=== PATIENT | female | born 1940 | race Caucasian/White ===

== ENCOUNTER → 2016-12-26 | Day surgery (SDC) | payer OTHER ==
[2016-12-20 08:52] VITALS: Ht 162.6 cm; Wt 73.6 kg
[~2016-12-26] VITALS: Ht 162.6 cm; Wt 73.6 kg
[~2016-12-26] MED LIST: 500ML BSS 0.3ML EPI 1:1000PF IRRIG ONE; ACETAMINOPHEN 325 MG TAB PO PRN; AMVISC PLUS 0.8ML SYRINGE INT OCU ONE; ASPI81TA28 PO; ATROPINE SULFATE 0.1 MG/ML 5ML SYR IV PRN; AcetaZOLAMIDE 250 MG TAB PO SCH; BETAXOLOL HCL 0.25% OP SUSP PER DROP CHARGE OPL SCH; BRIMONIDINE TART 0.2% OP SOLN PER DROP CHARGE ONE; BSS FLUSH ONE; BTP80 PO; CHOL1TAB42 PO; CYAN100020 PO; CZR50 PO; ENDOCOAT 0.85ML SYRINGE INT OCU ONE; EZET10TA47 PO; EpHEDrine SULFATE INJ 50 MG/ML AMP IV PRN; EpINEphrine INJ 1MG/ML AMP 1 MG/ML AMP ONE; FENTANYL CITRATE INJ 50 MCG/1 ML 2 ML VIAL ONE; FLUV1CAP PO; LACT1CAP6 PO; LACTATED RINGER'S 1000ML 500 ML IV SCH; LEVO50TA PO; LIDOCAINE 4% OP SOLN DROP CHARGE ONE; LIDOCAINE 4% OP SOLN DROP CHARGE OPL SCH; LIDOCAINE HCL 1% MPF 2 ML VIAL ONE; LOSA50TA6 PO; MAGN400T6 PO; MIDAZOLAM HCL 1 MG/ML 2ML VIAL ONE; MIX: 4ML BSS 1ML EPI 1:1000 PF INSTIL ONE; MOXIFLOXACIN OPH SOLN PER DROP CHARGE ONE; OCUCOAT 1 ML SOLN IO ONE; PANT40TA PO; POVIDONE-IODINE OP SOLN 30 ML BTL ONE; PROPARACAINE 0.5% OP SOLN PER DROP CHARGE OPL SCH; RANI150T3 PO; RIVA1TAB4 PO; SERT25TA PO; SOTA80TA PO; TOBRAMYCIN/DEXAMETHASONE OPH OINT PER APPLN CHARGE ONE; TRAM-10 PO; TRYPAN BLUE 0.06% FOR SURGI CENTER ONLY OP ONE
--- NOTE | 2016-12-26 07:33 | History & Physical Bridge - [place] ---
H&P Re-Evaluation Bridge Note: I have examined the patient, reviewed the History & Physical and in the interval since the performance of the History & Physical I have noted the following changes of clinical significance: No changes noted
[2016-12-26] MEDS: PHENYLEPHRINE HCL 2.5% OP SOLN PER DROP CHARGE OPL SCH ×2 (08:30→08:35)
[2016-12-26] MEDS: TROPICAMIDE 1% OP SOLN PER DROP CHARGE OPL SCH ×2 (08:31→08:36)
[2016-12-26] MEDS: CYCLOPENTOLATE HCL 1% OP SOLN PER DROP CHARGE OPL SCH ×2 (08:32→08:37)
[2016-12-26] MEDS: MOXIFLOXACIN OPH SOLN PER DROP CHARGE OPL SCH ×2 (08:33→08:43)
--- NOTE | 2016-12-26 09:31 | Discharge Instructions-SurgCtr ---
Discharge Instructions Date of Service Dec 26, 2016. Visit Reason for Visit: Cataract Left Eye Discharge Discharge Diagnosis / Problem: lens implant left eye Discharge Goals Goal(s): Improve function Activity Recommendations Activity Limitations: resume your previous activity Lifting Limitations: no more than 10 pounds Exercise/Sports Limitations: gradually increase as tolerated May Resume Sexual Activity: when tolerated Shower/Bathe: tomorrow Driving or Machine Use: resume 1 day after discharge Anesthesia . Post Anesthesia Instructions: If you have had General Anesthesia or IV Sedation: * Do not drive today. * Resume driving when surgeon permits. * Do not make important decisions or sign legal documents today. * Call surgeon for: 1. Temperature elevations greater than 101 degrees F. 2. Uncontrollable pain. 3. Excessive bleeding. 4. Persistent nausea and vomiting. 5. Medication intolerance (nausea, vomiting or rash). * For nausea and vomiting use only clear liquids such as: tea, soda, bouillon until nausea subsides, then gradually increase diet as tolerated. * If you have any concerns or questions, call your surgeon's office. If physician is unavailable and it is an emergency, call 911 or go to the nearest emergency room. . Instructions / Follow-Up Instructions / Follow-Up ACTIVITY RECOMMENDATIONS: * Light activities. * Mild irritation and blurred vision are common for the first few days. * You may walk outside, read, watch television. * Redness around the white part of the eye is common. MEDICATIONS: Resume previous medications unless instructed otherwise by your surgeon. * Take white Diamox (Acetazolamide) tablet at 1 pm today. Start all eye drops at 1 pm today: * Eye drops (today and tomorrow): Prednisone - one drop in operative eye every 3 hours while awake Tobramycin - one drop in operative eye every 3 hours while awake SPECIAL CARE INSTRUCTIONS: * Tape plastic shield over eye to sleep at night. Call your doctor at with any concerns or problems. FOLLOW UP VISIT: Follow-up with Dr Klein at [facility] as scheduled. Diet Recommendations Home Diet: no limitations Procedures Procedures Performed: cataract extraction with lens implant Pending Studies Studies pending at discharge: no Medical Emergencies . Who to Call and When: Medical Emergencies: If at any time you feel your situation is an emergency, please call 911 immediately. . Non-Emergent Contact Non-Emergency issues call your: Almond Huller Call Non-Emergent contact if: your pain is not controlled [phone] . . "Provider Documentation" section prepared by Bill Klein.
--- NOTE | 2016-12-26 09:38 | [facility] Operative Report ---
Operative Report Date of Service Dec 26, 2016. Operative Report 1. PREOPERATIVE DIAGNOSIS: Senile Posterior Subcapsular Cataract, left eye. 2. POSTOPERATIVE DIAGNOSIS: Senile Posterior Subcapsular Cataract, left eye. 3. PROCEDURE: Phacoemulsification of left cataract with posterior chamber lens implant, type Bausch [employer] Lomb, model MX60, power +18.5 diopters. ANESTHESIA: Local standby. SURGEON: Dr. Klein. COMPLICATIONS: None. OPERATING TIME: 10 minutes. 4. OPERATION AND FINDINGS: DESCRIPTION OF PROCEDURE: The left pupil was dilated. The anesthetic was administered using a topical technique. The left eye was prepped and draped. A speculum was placed. A paracentesis was placed. The chamber was filled with Amvisc Plus and Endocoat. Epinephrine solution was used. A clear corneal incision was formed. The capsule was stained with Vision Blue. A capsulorrhexis was performed. The nucleus was hydrodissected. A dense lens was removed with phacoemulsification. Time was 7.87 seconds. The aspiration unit was used to remove the cortex. The capsule was filled with Amvisc Plus. The lens implant was folded and placed into the capsule. The incision was hydrated. The Amvisc was aspirated. The wound was secure. The chamber was deep. The pupil was round. Brimonidine, TobraDex ointment and Vigamox solution were placed. The speculum was removed. The patient was returned to the Recovery Room in stable condition. I attest to the content of the Intraoperative Record and any orders documented therein. Any exceptions are noted below. The scribe's documentation has been prepared in my presence, under my direction and personally reviewed by me in its entirety. I confirm that the note above accurately reflects all work, treatment, procedures, and medical decision making performed by me. I personally scribed for Bill Klein M.D. ([facility]) on 12/26/16 at 09:37. Electronically submitted by Fina CLOUD).
[2016-12-26 09:40] VITALS: TEMP 37.1
--- NOTE | 2016-12-26 09:49 | Anesthesia Progress Nt - [facility] ---
Anesthesia Post Op Note Date & Time Dec 26, 2016 at 09:49 Vital Signs Pain Intensity: 0 Vital Signs Past 12 Hours Date Time Temp Pulse Resp B/P Pulse Ox O2 Delivery O2 Flow Rate FiO2 12/26/16 09:40 37.1 52 16 127/55 98 Room Air 12/26/16 08:26 36.4 57 16 155/76 98 Room Air Notes Mental Status: alert / awake / arousable, participated in evaluation Pt Amnestic to Procedure: Yes Nausea / Vomiting: adequately controlled Pain: adequately controlled Airway Patency, RR, SpO2: stable & adequate BP & HR: stable & adequate Hydration State: stable & adequate Anesthetic Complications: no major complications apparent
[2016-12-26 09:55] VITALS: BP 143/62; PULSE 50; O2SAT 98
== END | disposition home or self-care (01) ==
LOC: X.SURG 08:06
PROVIDERS: ATTEND Specialist
DX: H25.042 Posterior subcapsular polar age-related cataract, left eye (principal); I10 Essential (primary) hypertension; I51.9 Heart disease, unspecified; Z88.1 Allergy status to other antibiotic agents

== ENCOUNTER → 2017-01-23 | Outpatient (CLI) | payer OTHER ==
[~2017-01-23] MED LIST changes: -500ML BSS 0.3ML EPI 1:1000PF IRRIG ONE; -ACETAMINOPHEN 325 MG TAB PO PRN; -AMVISC PLUS 0.8ML SYRINGE INT OCU ONE; -ATROPINE SULFATE 0.1 MG/ML 5ML SYR IV PRN; -AcetaZOLAMIDE 250 MG TAB PO SCH; -BETAXOLOL HCL 0.25% OP SUSP PER DROP CHARGE OPL SCH; -BRIMONIDINE TART 0.2% OP SOLN PER DROP CHARGE ONE; -BSS FLUSH ONE; -ENDOCOAT 0.85ML SYRINGE INT OCU ONE; -EpHEDrine SULFATE INJ 50 MG/ML AMP IV PRN; -EpINEphrine INJ 1MG/ML AMP 1 MG/ML AMP ONE; -FENTANYL CITRATE INJ 50 MCG/1 ML 2 ML VIAL ONE; -LACTATED RINGER'S 1000ML 500 ML IV SCH; -LIDOCAINE 4% OP SOLN DROP CHARGE ONE; -LIDOCAINE 4% OP SOLN DROP CHARGE OPL SCH; -LIDOCAINE HCL 1% MPF 2 ML VIAL ONE; -MIDAZOLAM HCL 1 MG/ML 2ML VIAL ONE; -MIX: 4ML BSS 1ML EPI 1:1000 PF INSTIL ONE; -MOXIFLOXACIN OPH SOLN PER DROP CHARGE ONE; -OCUCOAT 1 ML SOLN IO ONE; -POVIDONE-IODINE OP SOLN 30 ML BTL ONE; -PROPARACAINE 0.5% OP SOLN PER DROP CHARGE OPL SCH; -TOBRAMYCIN/DEXAMETHASONE OPH OINT PER APPLN CHARGE ONE; -TRYPAN BLUE 0.06% FOR SURGI CENTER ONLY OP ONE
[2017-01-23 14:06] LABS: ESTIMATED AVERAGE GLUCOSE 128 mg/dl; HA1C FLAG Normal (Normal)
[2017-01-23 18:18] LABS: THYROID STIMULATING HORMONE 1.68 uIu/ml (0.300-4.500)
[2017-01-23 20:13] LABS: ALB/GLOB RATIO 1.1 (0.9-2); BLOOD UREA NITROGEN 14 mg/dl (7-18); BUN/CREATININE RATIO 16.5 (10-20); CALCIUM 8.6 mg/dl (8.5-10.1); CARBON DIOXIDE 26 mmol/L (21-32); CHLORIDE 108 mmol/L (98-107); CREATININE 0.85 mg/dl (0.60-1.20); GLUCOSE 98 mg/dl (70-99); HDL CHOLESTEROL 57 mg/dl; POTASSIUM 4.3 mmol/L (3.5-5.1); SODIUM 143 mmol/L (136-145); TRIGLYCERIDES 249 mg/dl (0-150); VERY LOW DENSITY LIPOPROT CALC 50 mg/dl
[2017-01-23 20:22] LABS: ALKALINE PHOSPHATASE 90 U/L (45-117); ALT/SGPT 19 U/L (12-78); AST/SGOT 18 U/L (15-37); CHOLESTEROL 287 mg/dl (0-200); LDL CHOLESTEROL CALCULATED 180 mg/dl
== END | disposition home or self-care (01) ==
LOC: C.LABPBG 10:50
PROVIDERS: ATTEND Internal Medicine
DX: E78.5 Hyperlipidemia, unspecified (principal); E11.9 Type 2 diabetes mellitus without complications; E55.9 Vitamin D deficiency, unspecified; E03.9 Hypothyroidism, unspecified; I10 Essential (primary) hypertension

== ENCOUNTER → 2017-03-13 | Day surgery (SDC) | payer OTHER ==
[2017-02-28 10:36] VITALS: Ht 162.6 cm; Wt 75.5 kg
[~2017-03-13] VITALS: Ht 162.6 cm; Wt 75.5 kg
[~2017-03-13] MED LIST changes: +500ML BSS 0.3ML EPI 1:1000PF IRRIG ONE; +ACETAMINOPHEN 325 MG TAB PO PRN; +AMVISC PLUS 0.8ML SYRINGE INT OCU ONE; +ATROPINE SULFATE 0.1 MG/ML 5ML SYR IV PRN; +AcetaZOLAMIDE 250 MG TAB PO SCH; +BETAXOLOL HCL 0.25% OP SUSP PER DROP CHARGE OPR SCH; +BRIMONIDINE TART 0.2% OP SOLN PER DROP CHARGE ONE; -BTP80 PO; -CZR50 PO; +ENDOCOAT 0.85ML SYRINGE INT OCU ONE; -EZET10TA47 PO; +EpINEphrine INJ 1MG/ML AMP 1 MG/ML AMP ONE; +LACTATED RINGER'S 1000ML 500 ML IV SCH; +LIDOCAINE 4% OP SOLN DROP CHARGE ONE; +LIDOCAINE 4% OP SOLN DROP CHARGE OPR SCH; +LIDOCAINE HCL 1% MPF 2 ML VIAL ONE; +MIDAZOLAM HCL 1 MG/ML 2ML VIAL ONE; +MIX: 4ML BSS 1ML EPI 1:1000 PF INSTIL ONE; +MOXIFLOXACIN OPH SOLN PER DROP CHARGE ONE; +OCUCOAT 1 ML SOLN IO ONE; +POVIDONE-IODINE OP SOLN 30 ML BTL ONE; +PROPARACAINE 0.5% OP SOLN PER DROP CHARGE OPR SCH; +TOBRAMYCIN/DEXAMETHASONE OPH OINT PER APPLN CHARGE ONE
[2017-03-13] MEDS: PHENYLEPHRINE HCL 2.5% OP SOLN PER DROP CHARGE OPR SCH ×2 (07:40→07:45)
[2017-03-13] MEDS: TROPICAMIDE 1% OP SOLN PER DROP CHARGE OPR SCH ×2 (07:41→07:45)
[2017-03-13] MEDS: CYCLOPENTOLATE HCL 1% OP SOLN PER DROP CHARGE OPR SCH ×2 (07:42→07:47)
[2017-03-13] MEDS: MOXIFLOXACIN OPH SOLN PER DROP CHARGE OPR SCH ×2 (07:43→07:49)
--- NOTE | 2017-03-13 08:54 | Discharge Instructions-SurgCtr ---
Discharge Instructions Date of Service Mar 13, 2017. Visit Reason for Visit: Cataract Right Eye Discharge Discharge Diagnosis / Problem: lens implant right eye Discharge Goals Goal(s): Improve function Activity Recommendations Activity Limitations: resume your previous activity Lifting Limitations: no more than 10 pounds Exercise/Sports Limitations: gradually increase as tolerated May Resume Sexual Activity: when tolerated Shower/Bathe: tomorrow Driving or Machine Use: resume 1 day after discharge Anesthesia . Post Anesthesia Instructions: If you have had General Anesthesia or IV Sedation: * Do not drive today. * Resume driving when surgeon permits. * Do not make important decisions or sign legal documents today. * Call surgeon for: 1. Temperature elevations greater than 101 degrees F. 2. Uncontrollable pain. 3. Excessive bleeding. 4. Persistent nausea and vomiting. 5. Medication intolerance (nausea, vomiting or rash). * For nausea and vomiting use only clear liquids such as: tea, soda, bouillon until nausea subsides, then gradually increase diet as tolerated. * If you have any concerns or questions, call your surgeon's office. If physician is unavailable and it is an emergency, call 911 or go to the nearest emergency room. . Instructions / Follow-Up Instructions / Follow-Up ACTIVITY RECOMMENDATIONS: * Light activities. * Mild irritation and blurred vision are common for the first few days. * You may walk outside, read, watch television. * Redness around the white part of the eye is common. MEDICATIONS: Resume previous medications unless instructed otherwise by your surgeon. * Take white Diamox (Acetazolamide) tablet at 1 pm today. Start all eye drops at 1 pm today: * Eye drops (today and tomorrow): Prednisone - one drop in operative eye every 3 hours while awake Tobramycin - one drop in operative eye every 3 hours while awake SPECIAL CARE INSTRUCTIONS: * Tape plastic shield over eye to sleep at night. Call your doctor at with any concerns or problems. FOLLOW UP VISIT: Follow-up with Dr Klein at [facility] as scheduled. Diet Recommendations Home Diet: no limitations Procedures Procedures Performed: cataract extraction with lens implant Pending Studies Studies pending at discharge: no Medical Emergencies . Who to Call and When: Medical Emergencies: If at any time you feel your situation is an emergency, please call 911 immediately. . Non-Emergent Contact Non-Emergency issues call your: Insurance Marketing Specialist Call Non-Emergent contact if: your pain is not controlled [phone] . . "Provider Documentation" section prepared by Bill Klein. .
--- NOTE | 2017-03-13 08:55 | [facility] Operative Report ---
Operative Report Date of Service Mar 13, 2017. Operative Report 1. PREOPERATIVE DIAGNOSIS: Senile nuclear cataract, right eye. 2. POSTOPERATIVE DIAGNOSIS: Senile nuclear cataract, right eye. 3. PROCEDURE: Phacoemulsification of right cataract with posterior chamber lens implant, type Bausch [employer] Lomb, model MX60, power +18 diopters. ANESTHESIA: Local standby. SURGEON: Dr. Klein. COMPLICATIONS: None. OPERATING TIME: 10 minutes. 4. OPERATION AND FINDINGS: DESCRIPTION OF PROCEDURE: The right pupil was dilated. The anesthetic was administered using a topical technique. The right eye was prepped and draped. A speculum was placed. A clear corneal incision was formed. The chamber was filled with Amvisc Plus and Endocoat. Epinephrine solution was used. A paracentesis was placed. A capsulorrhexis was performed. The nucleus was hydrodissected. The lens was removed with phacoemulsification. Time was 5.13 seconds. The aspiration unit was used to remove the cortex. The capsule was filled with Amvisc Plus. The lens implant was folded and placed into the capsule. The incision was hydrated. The Amvisc was aspirated. The wound was secure. The chamber was deep. The pupil was round. Brimonidine, TobraDex ointment and Vigamox solution were placed. The speculum was removed. The patient was returned to the Recovery Room in stable condition. I attest to the content of the Intraoperative Record and any orders documented therein. Any exceptions are noted below. The scribe's documentation has been prepared in my presence, under my direction and personally reviewed by me in its entirety. I confirm that the note above accurately reflects all work, treatment, procedures, and medical decision making performed by me. I personally scribed for Bill Klein M.D. ([facility]) on 03/13/17 at 08:55. Electronically submitted by Fina Dixon ([facility]).
[2017-03-13 09:00] VITALS: TEMP 36.7
[2017-03-13 09:19] VITALS: BP 129/78; PULSE 56; O2SAT 96
--- NOTE | 2017-03-13 09:28 | Anesthesia Progress Nt - [facility] ---
Anesthesia Post Op Note Date & Time Mar 13, 2017 at 09:28 Vital Signs Pain Intensity: 3 Vital Signs Past 12 Hours Date Time Temp Pulse Resp B/P (MAP) Pulse Ox O2 Delivery O2 Flow Rate FiO2 03/13/17 09:19 56 16 129/78 (95) 96 Room Air 03/13/17 09:00 36.7 51 16 137/60 (85) 97 Room Air 03/13/17 07:32 36.6 54 18 171/89 (116) 100 Room Air Notes Mental Status: alert / awake / arousable, participated in evaluation Pt Amnestic to Procedure: Yes Nausea / Vomiting: adequately controlled Pain: adequately controlled Airway Patency, RR, SpO2: stable & adequate BP & HR: stable & adequate Hydration State: stable & adequate Anesthetic Complications: no major complications apparent
== END | disposition home or self-care (01) ==
LOC: X.SURG 07:14
PROVIDERS: ATTEND Specialist
DX: H25.11 Age-related nuclear cataract, right eye (principal); I10 Essential (primary) hypertension; Z87.891 Personal history of nicotine dependence; Z98.42 Cataract extraction status, left eye; Z68.28 Body mass index [BMI] 28.0-28.9, adult; Z88.1 Allergy status to other antibiotic agents

== ENCOUNTER → 2017-05-02 | Outpatient (CLI) | payer OTHER ==
[~2017-05-02] MED LIST changes: -500ML BSS 0.3ML EPI 1:1000PF IRRIG ONE; -ACETAMINOPHEN 325 MG TAB PO PRN; -AMVISC PLUS 0.8ML SYRINGE INT OCU ONE; -ATROPINE SULFATE 0.1 MG/ML 5ML SYR IV PRN; -AcetaZOLAMIDE 250 MG TAB PO SCH; -BETAXOLOL HCL 0.25% OP SUSP PER DROP CHARGE OPR SCH; -BRIMONIDINE TART 0.2% OP SOLN PER DROP CHARGE ONE; -ENDOCOAT 0.85ML SYRINGE INT OCU ONE; -EpINEphrine INJ 1MG/ML AMP 1 MG/ML AMP ONE; -LACTATED RINGER'S 1000ML 500 ML IV SCH; -LIDOCAINE 4% OP SOLN DROP CHARGE ONE; -LIDOCAINE 4% OP SOLN DROP CHARGE OPR SCH; -LIDOCAINE HCL 1% MPF 2 ML VIAL ONE; -MIDAZOLAM HCL 1 MG/ML 2ML VIAL ONE; -MIX: 4ML BSS 1ML EPI 1:1000 PF INSTIL ONE; -MOXIFLOXACIN OPH SOLN PER DROP CHARGE ONE; -OCUCOAT 1 ML SOLN IO ONE; +OPTIRAY 320 IV PRN; -POVIDONE-IODINE OP SOLN 30 ML BTL ONE; -PROPARACAINE 0.5% OP SOLN PER DROP CHARGE OPR SCH; -TOBRAMYCIN/DEXAMETHASONE OPH OINT PER APPLN CHARGE ONE
--- NOTE | 2017-05-02 13:13 | DIAGNOSTIC IMAGING REPORT ---
HEAD COMBO CLINICAL HISTORY: 77 years-old Female presenting with headaches for one month, history of falls, myalgia. TECHNIQUE: Multidetector CT imaging of the head was performed before and after the administration of intravenous contrast. IV contrast: 94 mL of Optiray 320. A dose lowering technique was used consistent with the principles of ALARA (as low as reasonably achievable). COMPARISON: 02/17/2013. CT DOSE (mGy.cm): The estimated cumulative dose is 1277.12 mGycm. FINDINGS: Inventory Control Associate topogram: Unremarkable. Ventricles and sulci normal in size. Brain parenchyma normal in appearance with preserved reza-white differentiation. No mass effect or midline shift. No hemorrhage or acute territorial infarct. No extra-axial fluid collection. No abnormal enhancement. Vessels patent. Paranasal sinuses and mastoid air cells clear. Calvarium intact. IMPRESSION: 1. No acute intracranial pathology. No abnormal enhancement. Electronically signed by: Clemente Flood M.D. 05/02/2017 1:12 PM Dictated Date/Time: 05/02/2017 1:08 PM
== END | disposition home or self-care (01) ==
LOC: C.CTS 12:10
PROVIDERS: ATTEND Internal Medicine
DX: R51 Headache (principal); M79.1 Myalgia; Z91.81 History of falling

== ENCOUNTER → 2017-06-25 | Outpatient (CLI) | payer OTHER ==
[~2017-06-25] MED LIST changes: -OPTIRAY 320 IV PRN
--- NOTE | 2017-06-25 09:34 | DIAGNOSTIC IMAGING REPORT ---
BRAIN WITHOUT CONTRAST CLINICAL HISTORY: 77 years-old Female presenting with poor balance, new onset headaches. TECHNIQUE: Multisequence, multiplanar MR imaging of the brain was performed without the use of intravenous contrast. IV contrast: None. COMPARISON: CT head from 05/02/2017. FINDINGS: Ventricles and sulci normal in size. Brain parenchyma normal in appearance with preserved reza-white differentiation. No mass effect or midline shift. No restricted diffusion to suggest acute ischemia. No hemorrhage. No extra-axial fluid collection. T2 skull base flow voids preserved. Bone marrow signal intensity within the calvarium within normal limits. IMPRESSION: 1. No acute intracranial abnormality. Electronically signed by: Clemente Flood M.D. 06/25/2017 9:32 AM Dictated Date/Time: 06/25/2017 9:29 AM
[2017-06-27 10:28] LABS: ALBUMIN 3.8 G/DL (3.8-4.8); GAMMA GLOBULIN 0.6 G/DL (0.8-1.7); TOTAL PROTEIN 6.2 G/DL (6.2-8.3)
== END | disposition home or self-care (01) ==
LOC: C.MRI 08:39
PROVIDERS: ATTEND Psychiatry & Neurology Neurology
DX: R26.89 Other abnormalities of gait and mobility (principal); R29.818 Other symptoms and signs involving the nervous system; R51 Headache

== ENCOUNTER 2018-01-06 08:17 | Emergency (ER) | payer OTHER ==
[~2018-01-06] VITALS: Ht 160 cm; Wt 87.2 kg
[2018-01-06 08:28] VITALS: TEMP 37.1; O2SAT 97; Ht 160 cm; Wt 87.2 kg
[2018-01-06] MEDS ORDERED: ONDANSETRON INJ 2 MG/ML 2 ML VIAL IV STA (08:33)
[2018-01-06 08:39] LABS: BASO % 0.5 %; BASO ABS # 0.04 K/uL (0-0.2); EOS % 1.5 %; EOS ABS # 0.11 K/uL (0-0.5); HEMATOCRIT 43.1 % (37-47); HEMOGLOBIN 14.8 g/dL (12.0-16.0); IG# 0.02 K/uL (0.00-0.02); LYMPH % 22.4 %; LYMPH ABS # 1.68 K/uL (1.2-3.4); MEAN CELL VOLUME 92.3 fL (80-100); MEAN CORPUSCULAR HEMOGLOBIN 31.7 pg (25-34); MEAN CORPUSCULAR HGB CONC 34.3 g/dl (32-36); MEAN PLATELET VOLUME 11.4 fL (7.4-10.4); MONO % 7.2 %; MONO ABS # 0.54 K/uL (0.11-0.59); NEUT % 68.1 %; NEUT ABS # 5.11 K/uL (1.4-6.5); PLATELET COUNT 246 K/uL (130-400); RED CELL DISTRIBUTION WIDTH CV 13.4 % (11.5-14.5); RED CELL DISTRIBUTION WIDTH SD 45.1 fL (36.4-46.3)
[2018-01-06 08:42] VITALS: O2SAT 97
[2018-01-06] MEDS ORDERED: PRT/20 PO (08:44)
[2018-01-06 08:48] LABS: PTT PATIENT 28.7 SECONDS (21.0-31.0)
[2018-01-06 08:54] LABS: ALBUMIN 3.9 gm/dl (3.4-5.0); ALT/SGPT 20 U/L (12-78); BLOOD UREA NITROGEN 11 mg/dl (7-18); CALCIUM 8.9 mg/dl (8.5-10.1); CARBON DIOXIDE 28 mmol/L (21-32); GLUCOSE 122 mg/dl (70-99); LIPASE 129 U/L (73-393); POTASSIUM 4.1 mmol/L (3.5-5.1); SODIUM 139 mmol/L (136-145)
--- NOTE | 2018-01-06 08:56 | EMERGENCY ROOM VISIT NOTE ---
History Report prepared by Kennedy: Anna Ojeda Under the Supervision of: Dr. Bill Goins D.O. First contact with patient: 08:28 Chief Complaint: CHEST PAIN Stated Complaint: AFIB ON SOTOLOL, OUT OF RHYTHM CHEST PAIN, NAUSEA History of Present Illness The patient is a 77 year old female who presents to the Emergency Room with complaints of constant left-sided chest pain for the past 3 weeks. The patient states that she has been experiencing "gnawing" pain in her left chest, under her left breast, and into her back for the past 3 weeks. She has been coughing and short of breath for the past 3 weeks as well. She followed up with her PCP for these symptoms and was diagnosed with costochondritis. Her PCP did a chest x -ray and also had the patient wear a Holter monitor because he pulse was low. The patient states that she has not received the results of her Holter monitor yet. She does report a history of atrial fibrillation. She states that she can feel when she goes into a-fib. This morning around 2am the patient felt that she was in a-fib. She states that her blood pressure was elevated and she felt weak and nauseated. The patient is still experiencing some nausea. She is having the same discomfort in her chest that she has had for the past 3 weeks. She states that her other symptoms have resolved at this time. The patient rates her current pain as a 6/10 in severity. She has been eating and drinking normally. She denies fevers, chills, abdominal pain, diarrhea, and any pain in her legs. She does report some slight swelling to her legs. Source of History: patient Onset: 3 weeks ago Position: chest (left) Symptom Intensity: 6/10 Quality: other (gnawing) Timing: constant Associated Symptoms: + cough, + SOB, + nausea, + weakness, No fevers, No chills, No abdominal pain, No diarrhea Review of Systems See HPI for pertinent positives & negatives. A total of 10 systems reviewed and were otherwise negative. Past Medical & Surgical Medical Problems: (1) Atrial fibrillation (2) Benign hypertension (3) Cholelithiasis without obstruction (4) Coronary artery disease (5) Hyperlipidemia (6) Hypothyroidism (7) Osteoarthritis Surgical Problems: (1) Status post cardiac catheterization Family History FH: HTN (hypertension) FH: cancer FHx: heart disease Social History Smoking Status: Former Smoker Alcohol Use: none Marital Status: Housing Status: lives with family Occupation Status: retired Current/Historical Medications Scheduled Aspirin (Aspirin Ec), 81 MG PO QPM Cholecalciferol (Vitamin D), 1 TAB PO QAM Fluvastatin (Lescol), 20 MG PO MWF Lactobacillus (Probiotic), 1 CAP PO QAM Levothyroxine Sodium (Synthroid), 50 MCG PO QAM Losartan Potassium (Cozaar), 50 MG PO QAM Magnesium Oxide (Mag-Ox), 400 MG PO QAM Pantoprazole (Protonix), 20 MG PO QAM Rivaroxaban (Xarelto), 20 MG PO QAM Sertraline (Zoloft), 25 MG PO QAM Sotalol Hcl (Sotalol Hcl), 1 TAB PO BID Scheduled PRN Ranitidine Hcl (Zantac), 150 MG PO HS PRN for Heartburn Tramadol (Ultram), 50 MG PO Q6 PRN for back pain Allergies Coded Allergies: Levofloxacin (Verified Allergy, Intermediate, ITCHING, 01/06/18) Ciprofloxacin (Verified Allergy, Unknown, HAS HAD LEVAQUIN BEFORE W/O A PROBLEM, 01/06/18) Physical Exam Vital Signs Date Time Temp Pulse Resp B/P (MAP) Pulse Ox O2 Delivery O2 Flow Rate FiO2 01/06/18 10:07 57 16 160/79 01/06/18 09:39 63 16 162/81 01/06/18 08:52 60 16 153/79 01/06/18 08:42 97 Room Air 01/06/18 08:29 98 Room Air 01/06/18 08:29 66 01/06/18 08:29 98 Room Air 01/06/18 08:28 37.1 65 18 183/126 97 Physical Exam GENERAL: Patient is awake, alert, and in no acute distress. Patient is resting comfortably and showing no signs of anxiety EYES: The conjunctivae are clear. The pupils are round and reactive. EARS, NOSE, MOUTH AND THROAT: The nose is without any evidence of any deformity. Mucous membranes are moist tongue is midline NECK: The neck is nontender and supple. RESPIRATORY: Normal respiratory effort is noted there is no evidence of wheezing rhonchi or rales CARDIOVASCULAR: Regular rate and rhythm noted there no murmurs rubs or gallops normal S1 normal S2 GASTROINTESTINAL: The abdomen is soft. Bowel sounds are present in all quadrants. Abdomen is nontender MUSCULOSKELETAL/EXTREMITIES: There is no evidence of gross deformity full range of motion is noted in the hips and shoulders SKIN: There is no obvious evidence of any rash. There are no petechiae, pallor or cyanosis noted. NEUROLOGIC: Patient is awake alert and oriented x3 Medical Decision & Procedures ER Provider Diagnostic Interpretation: Radiology results as stated below per my review and radiologist interpretation: CHEST ONE VIEW PORTABLE CLINICAL HISTORY: 77 years-old Female presenting with CHEST PAIN. TECHNIQUE: Portable upright AP view of the chest was obtained. COMPARISON: 08/31/2016. FINDINGS: Atherosclerosis of the aortic arch. Cardiac silhouette top normal in size. Lungs and pleural spaces clear. Osseous structures normal. Upper abdomen normal. IMPRESSION: 1. No acute cardiopulmonary disease. Electronically signed by: Clemente Flood M.D. 01/06/2018 8:58 AM Dictated Date/Time: 01/06/2018 8:58 AM Laboratory Results 01/06/18 08:30 Red Blood Count 4.67, Mean Corpuscular Volume 92.3, Mean Corpuscular Hemoglobin 31.7, Mean Corpuscular Hemoglobin Concent 34.3, Mean Platelet Volume 11.4, Neutrophils (%) (Auto) 68.1, Lymphocytes (%) (Auto) 22.4, Monocytes (%) (Auto) 7.2, Eosinophils (%) (Auto) 1.5, Basophils (%) (Auto) 0.5, Neutrophils # (Auto) 5.11, Lymphocytes # (Auto) 1.68, Monocytes # (Auto) 0.54, Eosinophils # (Auto) 0.11, Basophils # (Auto) 0.04 01/06/18 08:30 Test 01/06/18 08:30 White Blood Count 7.50 K/uL (4.8-10.8) Red Blood Count 4.67 M/uL (4.2-5.4) Hemoglobin 14.8 g/dL (12.0-16.0) Hematocrit 43.1 % (37-47) Mean Corpuscular Volume 92.3 fL (80-100) Mean Corpuscular Hemoglobin 31.7 pg (25-34) Mean Corpuscular Hemoglobin Concent 34.3 g/dl (32-36) Platelet Count 246 K/uL (130-400) Mean Platelet Volume 11.4 fL (7.4-10.4) Neutrophils (%) (Auto) 68.1 % Lymphocytes (%) (Auto) 22.4 % Monocytes (%) (Auto) 7.2 % Eosinophils (%) (Auto) 1.5 % Basophils (%) (Auto) 0.5 % Neutrophils # (Auto) 5.11 K/uL (1.4-6.5) Lymphocytes # (Auto) 1.68 K/uL (1.2-3.4) Monocytes # (Auto) 0.54 K/uL (0.11-0.59) Eosinophils # (Auto) 0.11 K/uL (0-0.5) Basophils # (Auto) 0.04 K/uL (0-0.2) RDW Standard Deviation 45.1 fL (36.4-46.3) RDW Coefficient of Variation 13.4 % (11.5-14.5) Immature Granulocyte % (Auto) 0.3 % Immature Granulocyte # (Auto) 0.02 K/uL (0.00-0.02) Prothrombin Time 10.7 SECONDS (9.0-12.0) Prothromb Time International Ratio 1.0 (0.9-1.1) Activated Partial Thromboplast Time 28.7 SECONDS (21.0-31.0) Partial Thromboplastin Ratio 1.1 Anion Gap 7.0 mmol/L (3-11) Est Creatinine Clear Calc Drug Dose 55.7 ml/min Estimated GFR () 72.0 Estimated GFR (Non- 62.1 BUN/Creatinine Ratio 12.2 (10-20) Calcium Level 8.9 mg/dl (8.5-10.1) Magnesium Level 2.2 mg/dl (1.8-2.4) Total Bilirubin 0.5 mg/dl (0.2-1) Direct Bilirubin < 0.1 mg/dl (0-0.2) Aspartate Amino Transf (AST/SGOT) 18 U/L (15-37) Alanine Aminotransferase (ALT/SGPT) 20 U/L (12-78) Alkaline Phosphatase 96 U/L (45-117) Total Creatine Kinase 65 U/L (26-192) Creatine Kinase MB 1.0 ng/ml (0.5-3.6) Creatine Kinase MB Ratio 1.5 (0-3.0) Troponin I < 0.015 ng/ml (0-0.045) Total Protein 7.6 gm/dl (6.4-8.2) Albumin 3.9 gm/dl (3.4-5.0) Lipase 129 U/L (73-393) Thyroid Stimulating Hormone (TSH) 3.390 uIu/ml (0.300-4.500) Free Thyroxine 1.22 ng/dl (0.80-1.60) Laboratory results per my review. Medications Administered Medications (Trade) Dose Ordered Sig/Shelbie Route Start Time Stop Time Status Last Admin Dose Admin Rivaroxaban (Xarelto Tab) 20 mg ONE STAT PO 01/06/18 09:03 01/06/18 09:04 DC 01/06/18 09:38 20 MG Sotalol HCl (Betapace Tab) 80 mg NOW ONCE PO 01/06/18 09:15 01/06/18 09:16 DC 01/06/18 09:38 80 MG ECG Per My Interpretation Indication: chest pain Rate (beats per minute): 64 Rhythm: normal sinus Findings: no acute ischemic change, no ectopy Comparison ECG Date: 09/03/2016 Change: resolution of previously noted anterior t-wave inversions. ED Course 0828: The patient was evaluated in room A3. A complete history and physical examination were performed. 0903: Xarelto 20 mg PO 0915: Sotalol HCl 80 mg PO 0931: I updated the patient on her results. 0937: I spoke with Dr. Lazar of cardiology. We discussed the patient's case. He felt that the patient could be discharged and follow-up as an outpatient. 0941: I reassessed the patient at this time. She is feeling better and resting comfortably. I discussed the results and treatment plan with the patient. I answered all pertaining questions that she had. She expressed understanding and verbalized agreement. The patient will be discharged home. Medical Decision Differential diagnosis: Etiologies such as cardiac ischemia, aortic dissection, pulmonary embolism, pneumonia, pneumothorax, musculoskeletal, infections, pericarditis, myocarditis , esophageal rupture, gastrointestinal, as well as others were entertained. Nursing notes were reviewed. Patient's previous electronic medical records reviewed. The patient is a 77-year-old female who presented to the emergency department with multiple complaints. She has a history of paroxysmal atrial fibrillation for which he takes sotalol. She thought that her heart was going in and out of rhythm last evening. She is currently taking anticoagulation. She also complained of chest discomfort which had been ongoing for at least a week. The patient was seen by her primary care physician previously. 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 The patient's EKG does not show any ischemic changes. Her cardiac biomarkers was negative despite having consistent pain for greater than 6 hours. I discussed patient's laboratory and radiographic studies with her. She was treated with her morning medications. Her blood pressure was found to be elevated. This improved while she was in the emergency department. I discussed patient's laboratory and radiographic studies with her. I also discussed her case with her [facility] cardiology group. I recommend that she follow-up with them this week for reevaluation. She was also to obtain the results of a recent Holter monitor to take with her. She was also encouraged to continue all medications as prescribed and return to the emergency department immediately if symptoms change worsen or the need arises. Medication Reconcilliation Current Medication List: was personally reviewed by me Blood Pressure Screening Patient's blood pressure: Elevated blood pressure Blood pressure disposition: Referred to PCP Consults Time Called: [phone] Consulting Physician: Dr. Lazar Returned Call: [phone] Lazar of cardiology. We discussed the patient's case. He felt that the patient could be discharged and follow-up as an outpatient. Impression Primary Impression: Palpitations Additional Impression: Chest pain Scribe Attestation The scribe's documentation has been prepared under my direction and personally reviewed by me in its entirety. I confirm that the note above accurately reflects all work, treatment, procedures, and medical decision making performed by me. Departure Information Dispostion Home / Self-Care Referrals Vickey Medina M.D. (PCP) Hong Stewart MD Forms Call Back Authorization, HOME CARE DOCUMENTATION FORM, IMPORTANT VISIT INFORMATION Patient Instructions ED Chest Pain Atypical Unkn Cause, Heart Palpitations, [facility] Additional Instructions Continue all medications as prescribed. Follow-up with your head of digital advertising & integration as scheduled. Try to have your Holter monitor results with you when you see the head of digital advertising & integration. Have your blood pressure rechecked with your family doctor as well as her head of digital advertising & integration. Return to the emergency department immediately if symptoms change worsen or the need arises. Problem Qualifiers Additional Impression: Chest pain Chest pain type: unspecified Qualified Codes: R07.9 - Chest pain, unspecified
--- NOTE | 2018-01-06 09:00 | DIAGNOSTIC IMAGING REPORT ---
CHEST ONE VIEW PORTABLE CLINICAL HISTORY: 77 years-old Female presenting with CHEST PAIN. TECHNIQUE: Portable upright AP view of the chest was obtained. COMPARISON: 08/31/2016. FINDINGS: Atherosclerosis of the aortic arch. Cardiac silhouette top normal in size. Lungs and pleural spaces clear. Osseous structures normal. Upper abdomen normal. IMPRESSION: 1. No acute cardiopulmonary disease. Electronically signed by: Clemente Flood M.D. 01/06/2018 8:58 AM Dictated Date/Time: 01/06/2018 8:58 AM
[2018-01-06 09:02] LABS: ALKALINE PHOSPHATASE 96 U/L (45-117); AST/SGOT 18 U/L (15-37); TOTAL PROTEIN 7.6 gm/dl (6.4-8.2)
[2018-01-06] MEDS ORDERED: RIVAROXABAN 20 MG TAB PO STA (09:03)
[2018-01-06] MEDS ORDERED: SOTALOL HCL 80 MG TAB PO ONE (09:15)
[2018-01-06 10:07] VITALS: BP 160/79; PULSE 57
== END 2018-01-06 10:20 | disposition home or self-care (01) ==
LOC: C.EDB 08:19 → C.EDA 10:20
DX: R00.2 Palpitations (principal); R07.9 Chest pain, unspecified; I48.91 Unspecified atrial fibrillation; I10 Essential (primary) hypertension; I25.10 Atherosclerotic heart disease of native coronary artery without angina pectoris; E78.5 Hyperlipidemia, unspecified; E03.9 Hypothyroidism, unspecified; M19.90 Unspecified osteoarthritis, unspecified site; Z82.49 Family history of ischemic heart disease and other diseases of the circulatory system; Z87.891 Personal history of nicotine dependence; Z79.82 Long term (current) use of aspirin; Z88.8 Allergy status to other drugs, medicaments and biological substances

== ENCOUNTER → 2018-05-13 | Outpatient (CLI) | payer OTHER ==
[~2018-05-13] MED LIST changes: -CYAN100020 PO; -PANT40TA PO; +PRT/20 PO
--- NOTE | 2018-05-13 09:06 | DIAGNOSTIC IMAGING REPORT ---
ABDOMEN COMPLETE (US) CLINICAL HISTORY: Right-sided abdominal pain. COMPARISON STUDY: CT of the abdomen and pelvis January 30, 2016 and right upper quadrant ultrasound December 16, 2015. FINDINGS: Hepatic echogenicity is increased. No hepatic lesions are identified although sensitivity is diminished given suboptimal penetration. Pancreatic body is normal. Head and tail are partially obscured. There is no biliary ductal dilatation status post cholecystectomy. Size of the spleen is normal. There is no hydronephrosis. The right kidney measures 9.2 cm and the left measures 9 cm. There is a 1.6 cm left renal cyst. Caliber of the abdominal aorta is normal. There is no ascites. Visualized portions of the IVC are patent. IMPRESSION: 1. No biliary ductal dilatation status post cholecystectomy. 2. Fatty infiltration of the liver. 3. Partially obscured pancreas. 4. No hydronephrosis. Electronically signed by: Darien Ferrer M.D. 05/13/2018 9:04 AM Dictated Date/Time: 05/13/2018 9:01 AM
== END | disposition home or self-care (01) ==
LOC: C.ULTR 08:16
PROVIDERS: ATTEND Internal Medicine
DX: R10.11 Right upper quadrant pain (principal); R10.813 Right lower quadrant abdominal tenderness; Z90.49 Acquired absence of other specified parts of digestive tract

== ENCOUNTER 2022-02-18 21:26 | Observation (INO) ==
[2022-02-18] MEDS ORDERED: ACETAMINOPHEN 500 MG TAB PO STA (21:49)
[2022-02-18] MEDS ORDERED: ONDANSETRON INJ 2 MG/ML 2 ML VIAL IV STA (21:49)
--- NOTE | 2022-02-18 21:55 | Emergency Department Note ---
Impression & Plan COVID-19, Breathlessness, Elevated troponin, Headache ED Provider Note Provider: Sha Gonzales MD DATE OF SERVICE: 02/18/2022 CHIEF COMPLAINT: Cough, nausea, body aches HISTORY OF PRESENT ILLNESS: Patient is a 82-year-old female with past medical history of CAD, atrial fibrillation on sotalol and Xarelto, hypertension, hypothyroidism presenting here today referred by her family doctor for evaluation of COVID-like symptoms. Patient traveled recently with her sister over the last approximately 2 days. States he began to have symptoms and tested positive for COVID this afternoon. Patient began with symptoms As well with some chills, fever, and nausea with some vomiting. Denies abdominal pain. Reports some mild body aches as well as headache. Denies any syncope or falls. Patient with some trace leg swelling. Patient denies any alteration of her taste and smell. She states she is vaccinated for COVID. Patient states she feels a bit short of breath. Patient states compliance with her home Xarelto. Reports this afternoon around 130 or so she did take a Tylenol REVIEW OF SYSTEMS: A total of 10 review of systems was obtained and negative except as stated above in the HPI. PAST MEDICAL HISTORY: As noted above MEDICATIONS: Reviewed home medications include sotalol and Xarelto SOCIAL HISTORY: PHYSICAL EXAM: GENERAL: alert and oriented in no acute distress on stretcher Head: normocephalic and atraumatic EYES: No injection, discharge or icterus. NECK: Trachea midline. ENT: Mucous membranes pink and moist. LUNGS: Airway patent. No retractions. Breath sounds clear but some mild tachypnea. Able to finish sentences but a bit breathless on exam. HEART: Regular rate and rhythm. No chest wall tenderness ABDOMEN: Soft and non-tender, without guarding or rebound. SKIN: Acyanotic, warm, dry, without rashes EXTREMITIES: Without swelling, tenderness or deformity NEUROLOGICAL: No focal deficits. No aphasia. No facial droop or slurred speech. Ambulatory. EK bpm normal sinus rhythm. No PVC or PAC noted. No acute ST segment elevation with nonspecific inferior T wave changes. QTc 440. Compared to previous available from January 06, 2018 similar. CONTINUOUS CARDIAC MONITORING: was ordered and showed a heart rate of 70s-90s bpm in normal sinus rhythm 1 view chest x-ray per my interpretation: No evidence of pneumothorax or obvious pneumonia some cardiomegaly noted. Patient's laboratory studies and imaging reviewed. Differential includes Infection, dehydration, metabolic abnormality, hypo/hyperglycemia, electrolyte disturbance, anemia, hypoxia, cardiac sources, intracerebral event, toxicologic, neurologic, as well as other pathologies. IMPRESSION/MEDICAL DECISION MAKING: Patient with COVID exposure and similar symptoms. Confirm test here. X-ray obtained as well as EKG and basic blood work. Not significant hypoxic. Patient with a heart rate in the 80s and 90s initially which she states is high for her. Little bit winded in discussion. Denies abdominal pain. No syncope or trauma reported. Doubt PE given her use of Xarelto. Given some Zofran to help with the nausea and a dose of Tylenol she is due to help with the fever. Went to be cautious with fluids to prevent overload to do not prescribe IV fluids. Is vaccinated for COVID. Given the sotalol use would not be a candidate for Paxlovid secondary to interactions. COVID test was positive here. No significant anemia or leukocytosis on labs. EKG without significant changes. Somewhat hypertensive here. Not requiring oxygen use but mildly tachypneic. Chest x-ray on my review without significant findings consistent with classic pneumonia. Troponin is mildly elevated. Previous normal troponins in old records however today's high-sensitivity troponin is mildly elevated. Question chronic versus some demand and I doubt ACS. States her headache still present but her nausea is improved on reevaluation. Again no neurodeficits and quite interactive and I doubt an acute intracranial bleed. Believe this is secondary to her viral illness. Not significantly hypoxic. Does not take NSAIDs due to her Xarelto use which she took in the morning. Again lower suspicion for PE given this anticoagulation use. Discussed with the patient the findings. Ordered her home sotalol dose. Discussed further observation given the mild troponin elevation for trending and for monitoring of her breathing although less tachypneic now than on initial evaluation and more comfortable appearing. Again she is not requiring oxygen. Discussed with the hospitalist. Pressures does seem to be somewhat elevated here today. DIAGNOSIS: COVID-19, shortness of breath, elevated troponin DISPOSITION: Hospitalist will evaluate Patient was agreeable with this plan. Past Med/Surg History Social History Smoking Status: Never smoker Preferred Language: Citizen Of [place] Feels Safe at Home: Yes Allergies Allergies Allergy/AdvReac Type Severity Reaction Status Date / Time ciprofloxacin Allergy Intermediate ITCHING Verified 02/18/22 22:00 WITH IV MEDICATION levofloxacin Allergy Intermediate ITCHING Verified 02/18/22 22:00 WITH IV MEDICATION Home Meds Home Medications Medication Instructions Recorded Confirmed levothyroxine 50 mcg tablet 50 mcg PO DAILY #90 tab 06/24/19 02/18/22 rivaroxaban 20 mg tablet 20 mg PO DAILY #90 tab 06/24/19 02/18/22 sotalol 80 mg tablet 80 mg PO BID tab 06/24/19 02/18/22 cholecalciferol (vitamin D3) 125 5,000 units PO DAILY tab 02/16/20 02/18/22 mcg (5,000 unit) tablet sertraline 25 mg tablet 25 mg PO DAILY tab 05/20/20 02/18/22 pantoprazole 20 mg tablet,delayed 20 mg PO DAILY 10/09/21 02/18/22 release acetaminophen 500 mg tablet 1,000 mg PO DIRECTED PRN 02/18/22 02/18/22 (Tylenol Extra Strength) dicyclomine 10 mg capsule 10 mg PO TID PRN 02/18/22 02/18/22 famotidine 20 mg tablet 20 mg PO HS 02/18/22 02/18/22 trazodone 50 mg tablet 50 mg PO HS 02/18/22 02/18/22 Results & Data (ED) Vital Signs Vital Signs - 24 hr 02/18/22 21:26 02/18/22 21:31 02/18/22 23:06 Temperature 38 C H Temperature Source Temporal Artery Scan Pulse Rate 93 H 76 Respiratory Rate 18 Respiratory Effort / Characteristics Non-Labored Spontaneous Respiratory Depth Normal Blood Pressure 183/103 H Blood Pressure Mean 129 Blood Pressure Position Sitting Pulse Oximetry 95 97 Oxygen Delivery Method Room Air Room Air Room Air Sepsis Recent Fever Within 48 Hours No Sepsis New/Unexplained Change in Mental Status No Sepsis Action Taken by Nursing No Action Required Laboratory Data Result diagrams: 02/18/22 23:02 02/18/22 23:02 Lab Results 02/18/22 02/18/22 02/18/22 Range/Units 23:02 23:02 23:02 WBC 10.56 (4.8-10.8) K/uL RBC 3.87 L (4.2-5.4) M/uL Hgb 12.0 (12.0-16.0) g/dL Hct 36.7 L (37-47) % MCV 94.8 (80-100) fL MCH 31.0 (25-34) pg MCHC 32.7 (32-36) g/dL RDW Std Deviation 44.2 (36.4-46.3) fL RDW Coeff of [place] 12.7 (11.5-14.5) % Plt Count 273 (130-400) K/uL MPV 11.9 H (7.4-10.4) fL Immature Gran % (Auto) 0.3 % Neut % (Auto) 83.3 % Lymph % (Auto) 8.1 % [place] % (Auto) 7.5 % Eos % (Auto) 0.5 % Baso % (Auto) 0.3 % Neut # (Auto) 8.80 H (1.4-6.5) K/uL Lymph # (Auto) 0.86 L (1.2-3.4) K/uL [place] # (Auto) 0.79 H (0.11-0.59) K/uL Eos # (Auto) 0.05 (0-0.5) K/uL Baso # (Auto) 0.03 (0-0.2) K/uL Immature Gran # (Auto) 0.03 H (0.00-0.02) K/uL Sodium 138 (136-145) mmol/L Potassium 4.2 (3.5-5.1) mmol/L Chloride 104 (98-107) mmol/L Carbon Dioxide 24 (21-32) mmol/L Anion Gap 10 (3-11) BUN 13 (6-23) mg/dl Creatinine 0.78 (0.6-1.2) mg/dl Est Cr Clr Drug Dosing 56.3 ml/min Est GFR ( Amer) 82.6 ml/min Est GFR (Non-Af Amer) 71.3 ml/min BUN/Creatinine Ratio 16.7 (10-20) Glucose 112 H (70-99(Fasting)) mg/dl Calcium 8.9 (8.5-10.1) mg/dl Magnesium 1.8 (1.7-2.4) mg/dl Total Bilirubin 0.4 (0.2-1.0) mg/dl AST 14 (13-39) U/L ALT 11 (7-52) U/L Alkaline Phosphatase 80 (34-104) U/L Troponin I High Sens 37.4 H (0-14) pg/ml Total Protein 6.7 (6.0-8.3) gm/dl Albumin 3.9 (3.4-5.0) gm/dl Globulin 2.8 (2.5-4.0) gm/dl Albumin/Globulin Ratio 1.4 (0.9-2) TSH 1.707 (0.300-4.500) uIu/ml SARS-CoV-2, RNA, NAAT (NEGATIVE) 02/18/22 Range/Units 23:02 WBC (4.8-10.8) K/uL RBC (4.2-5.4) M/uL Hgb (12.0-16.0) g/dL Hct (37-47) % MCV (80-100) fL MCH (25-34) pg MCHC (32-36) g/dL RDW Std Deviation (36.4-46.3) fL RDW Coeff of Lane[place] (11.5-14.5) % Plt Count (130-400) K/uL MPV (7.4-10.4) fL Immature Gran % (Auto) % Neut % (Auto) % Lymph % (Auto) % [place] % (Auto) % Eos % (Auto) % Baso % (Auto) % Neut # (Auto) (1.4-6.5) K/uL Lymph # (Auto) (1.2-3.4) K/uL [place] # (Auto) (0.11-0.59) K/uL Eos # (Auto) (0-0.5) K/uL Baso # (Auto) (0-0.2) K/uL Immature Gran # (Auto) (0.00-0.02) K/uL Sodium (136-145) mmol/L Potassium (3.5-5.1) mmol/L Chloride (98-107) mmol/L Carbon Dioxide (21-32) mmol/L Anion Gap (3-11) BUN (6-23) mg/dl Creatinine (0.6-1.2) mg/dl Est Cr Clr Drug Dosing ml/min Est GFR ( Amer) ml/min Est GFR (Non-Af Amer) ml/min BUN/Creatinine Ratio (10-20) Glucose (70-99(Fasting)) mg/dl Calcium (8.5-10.1) mg/dl Magnesium (1.7-2.4) mg/dl Total Bilirubin (0.2-1.0) mg/dl AST (13-39) U/L ALT (7-52) U/L Alkaline Phosphatase (34-104) U/L Troponin I High Sens (0-14) pg/ml Total Protein (6.0-8.3) gm/dl Albumin (3.4-5.0) gm/dl Globulin (2.5-4.0) gm/dl Albumin/Globulin Ratio (0.9-2) TSH (0.300-4.500) uIu/ml SARS-CoV-2, RNA, NAAT POSITIVE A* (NEGATIVE) Administered Medications Discontinued Medications Acetaminophen (Acetaminophen 500 Mg Tab) 1,000 mg PO NOW STA Stop: 02/18/22 21:50 Last Admin: 02/18/22 23:04 Dose: 1,000 mg Documented by: [id number] Ondansetron HCl (Ondansetron Inj 2 Mg/Ml 2 Ml Vial) 4 mg IV NOW STA Stop: 02/18/22 21:50 Last Admin: 02/18/22 23:05 Dose: 4 mg Documented by: [id number] Discharge Plan Visit Data Chief Complaint: Illness Stated Complaint: COVID+, VOMITING, HYPERTENSION ED Provider: Sha Gonzales Discharge Problem: COVID-19, Breathlessness, Elevated troponin, Headache Patient Disposition: Being Evaluated by Hospitalist Forms Stand Alone Forms: My [facility] Prescriptions Prescriptions: No Action levothyroxine 50 mcg tablet 50 mcg PO DAILY Qty: 90 RF: 0 sotalol 80 mg tablet 80 mg PO BID RF: 0 Xarelto 20 mg tablet 20 mg PO DAILY Qty: 90 RF: 0 cholecalciferol (vitamin D3) 125 mcg (5,000 unit) tablet 5,000 units PO DAILY RF: 0 sertraline 25 mg tablet 25 mg PO DAILY RF: 0 pantoprazole 20 mg tablet,delayed release (DR/EC) 20 mg PO DAILY RF: 0 trazodone 50 mg tablet 50 mg PO HS RF: 0 acetaminophen [Tylenol Extra Strength] 500 mg Tablet 1,000 mg PO DIRECTED PRN (Reason: Pain) RF: 0 famotidine 20 mg Tablet 20 mg PO HS RF: 0 dicyclomine 10 mg capsule 10 mg PO TID PRN (Reason: ABD DISCOMFORT) RF: 0 Referrals Referrals: Vickey Medina [Primary Care Provider] -
[2022-02-18 23:19] LABS: Basophils # (auto) 0.03 K/uL (0-0.2); Basophils % (auto) 0.3 %; Eosinophils # (auto) 0.05 K/uL (0-0.5); Eosinophils % (auto) 0.5 %; Hematocrit (blood only) 36.7 % (37-47); Immature Granulocytes # (auto) 0.03 K/uL (0.00-0.02); Immature Granulocytes % (auto) 0.3 %; Lymphocytes # (auto) 0.86 K/uL (1.2-3.4); Lymphocytes % (auto) 8.1 %; Mean Corpuscular Hgb Conc 32.7 g/dL (32-36); Mean Corpuscular Volume 94.8 fL (80-100); Mean Platelet Volume 11.9 fL (7.4-10.4); Monocytes # (auto) 0.79 K/uL (0.11-0.59); Monocytes % (auto) 7.5 %; Neutrophils % (auto) 83.3 %; Platelet Count 273 K/uL (130-400); RDW Coefficient of Variation 12.7 % (11.5-14.5); RDW Standard Deviation 44.2 fL (36.4-46.3); Red Blood Count 3.87 M/uL (4.2-5.4); White Blood Count 10.56 K/uL (4.8-10.8)
[2022-02-18 23:44] LABS: Albumin Globulin Ratio 1.4 (0.9-2); Albumin Level 3.9 gm/dl (3.4-5.0); BUN Creatinine Ratio 16.7 (10-20); Bilirubin,Total 0.4 mg/dl (0.2-1.0); Calcium 8.9 mg/dl (8.5-10.1); Creatinine Clr Calc Pharmacy 56.3 ml/min; Est GFR (African American) 82.6 ml/min; Est GFR (Non-African American) 71.3 ml/min; Globulin 2.8 gm/dl (2.5-4.0); Magnesium 1.8 mg/dl (1.7-2.4); Potassium 4.2 mmol/L (3.5-5.1); Total Protein 6.7 gm/dl (6.0-8.3); Troponin I High Sensitivity 37.4 pg/ml (0-14)
[2022-02-19] MEDS ORDERED: SOTALOL HCL 80 MG TAB PO ONE (00:01)
[2022-02-19] MEDS ORDERED: REMDESIVIR 200 MG in SODIUM CHLORIDE 0.9% 210 ML IV STA (01:07)
--- NOTE | 2022-02-19 03:28 | History and Physical Report ---
DATE OF ADMISSION: 02/19/2022. CHIEF COMPLAINT: COVID. HISTORY OF PRESENT ILLNESS: This is an 82-year-old female with past medical history significant for atrial fibrillation, history of CAD with longstanding known occluded ostial medial, carotid artery disease, hypertension, hyperlipidemia, intolerant to statins, questionable history of TIA, history of possible GI bleeding, presents with COVID. The patient is COVID vaccinated and boosted. The patient and her sister traveled for granddaughter's graduation and then sister developed COVID symptoms and the patient also developed severe nausea, severe headaches, bone pains, mild cough and she tested for COVID, came back positive and she was sent here by PCP. Currently, saturating okay on room air. Has some temperature spike. COVID, came back positive. Chest x-ray looks okay. The patient is on Xarelto, so no PE studies done. C-reactive protein minimally elevated at 1.17. Troponin I high sensitivity 37.4, so we were called for admission to follow serial cardiac enzymes. Currently, the patient is resting comfortably and hemodynamically stable. Denies any chest pain, denies any shortness of breath. No blurred visions, no earache, no runny nose, has some scratchy throat. Appetite is okay, had one episode of vomiting. No abdominal pain. Normal bowel and bladder movements. She says her right leg is lately getting swollen on and off like since 1 month. Ambulating okay without any support, though her balance is not as good as before. ALLERGIES: CIPROFLOXACIN, LEVOFLOXACIN. PAST MEDICAL HISTORY: As mentioned above. PAST SURGICAL HISTORY: Tonsillectomy, cardiac catheterization, left upper thigh muscle biopsy. MEDICATIONS: The patient is on Tylenol 1000 mg p.o. p.r.n., vitamin D 5000 International Units p.o. daily, dicyclomine 10 mg p.o. t.i.d. p.r.n., famotidine 20 mg p.o. at bedtime, levothyroxine 50 mcg p.o. daily, Protonix 20 mg p.o. daily, Xarelto 20 mg p.o. daily, sertraline 25 mg p.o. daily, sotalol 80 mg p.o. b.i.d., trazodone 50 mg p.o. at bedtime. FAMILY HISTORY: Significant for sister has arthritis, father has lung cancer. Sister has diabetes. SOCIAL HISTORY: , lives with her . No smoking. Alcohol, very little. No drug use. REVIEW OF SYSTEMS: As per HPI. Rest of the review of systems is negative. PHYSICAL EXAMINATION: GENERAL: The patient is of moderate build, not in acute distress. VITAL SIGNS: Temperature 38, pulse 82, respiratory rate 18, blood pressure 134/84, oxygen 94% on room air. HEENT: Pupils equal, round and reactive to light. Oral mucosa moist. NECK: No JVD, no neck masses. CARDIOVASCULAR: S1 and S2 heard. Regular rate and rhythm. No murmur, no gallop. RESPIRATORY SYSTEM: Normal AP diameter. No accessory muscle use. No wheezing, no crackles. ABDOMEN: Soft, bowel sounds present, nontender, no distention. CENTRAL NERVOUS SYSTEM: Cranial nerves II-XII grossly intact, nonfocal. EXTREMITIES: Right lower extremity is slightly edematous. No erythema seen. LABORATORY DATA: WBC 10.5, hemoglobin 12, hematocrit 36.7, platelets 273. Sodium 138, potassium 4.2, chloride 104, bicarbonate 24, BUN 13, creatinine 0.7, serum glucose 112, calcium 8.9, magnesium 1.8, total bilirubin 0.4, AST 14, ALT 11, alkaline phosphatase 80. Troponin I high sensitivity 37.4. C-reactive protein 1.17. TSH 1.7. SARS-CoV-2 RNA positive. IMAGING DATA: Chest x-ray, no acute findings seen. EKG: Normal sinus rhythm, rate 90, no acute ST changes seen. ASSESSMENT AND PLAN: This is an 82-year-old female who presents with COVID symptoms and COVID positive. 1. COVID: She has been vaccinated and boosted. Saturating okay on room air. Has temperature spike. Because of her age and comorbid conditions, we will treat with remdesivir for 3 days. If she requires oxygen or worsens, then we will complete 5-day course with addition of steroids. We will closely monitor in the med-telemetry. 2. Mild elevation of troponin: Most likely demand ischemia. Follow repeat EKGs. Follow serial enzymes, if any concerns will get echocardiogram.Covid precautions. 3. History of atrial fibrillation: Continue sotalol and Xarelto. 4. Gastroesophageal reflux disease: On Protonix. 5. History of mild coronary artery disease: On Xarelto and sotalol. 6. History of hypothyroidism: On Synthroid. 7. Deep venous thrombosis prophylaxis: On Xarelto. DISPOSITION: Admit to [facility]. PT/OT prior to discharge. Social service to help with discharge planning. Level 1 full code. Job ID: [id number] [facility]
[2022-02-19] MEDS ORDERED: PROMETHAZINE HCL 12.5 MG in SODIUM CHLORIDE 0.9% 50 ML IV PRN (06:37)
[2022-02-19] MEDS ORDERED: NITROGLYCERIN SL 0.4 MG/TAB TAB SL PRN (06:37)
[2022-02-19] MEDS ORDERED: ACETAMINOPHEN 325 MG TAB PO PRN (06:37)
[2022-02-19] MEDS ORDERED: DICYCLOMINE HCL 10 MG CAP PO PRN (06:37)
--- NOTE | 2022-02-19 06:56 | XRay Report ---
XR chest 1V portable HISTORY: 82 years-old Female sob, covid acute shortness of breath. COVID Positive. COMPARISON: Chest radiographs 10/13/2018 TECHNIQUE: Portable AP view of the chest FINDINGS: The cardiomediastinal and hilar silhouettes are within normal limits. No pneumothorax, pleural effusi on, airspace consolidation or overt pulmonary edema. Subtle subsegmental interstitial coarsening. The bones of the chest appear grossly intact. IMPRESSION: Subtle bilateral interstitial coarsening may represent atelectasis. Follow-up is recommen ded to exclude a developing infectious or inflammatory pneumonitis. No airspace consolidation. ACT 112: Negative or not required by law. The above report was generated using voice recognition software. It may contain grammatical, syntax o r spelling errors. Electronically signed by: Fermin Vargas M.D. 02/19/2022 6:54 AM
[2022-02-19 07:51] LABS: Basophils # (auto) 0.03 K/uL (0-0.2); Basophils % (auto) 0.4 %; Eosinophils # (auto) 0.06 K/uL (0-0.5); Eosinophils % (auto) 0.8 %; Hematocrit (blood only) 34.4 % (37-47); Hemoglobin 11.1 g/dL (12.0-16.0); Immature Granulocytes # (auto) 0.01 K/uL (0.00-0.02); Immature Granulocytes % (auto) 0.1 %; Lymphocytes % (auto) 12.6 %; Mean Corpuscular Hemoglobin 30.5 pg (25-34); Mean Corpuscular Hgb Conc 32.3 g/dL (32-36); Mean Corpuscular Volume 94.5 fL (80-100); Mean Platelet Volume 11.8 fL (7.4-10.4); Monocytes # (auto) 0.83 K/uL (0.11-0.59); Monocytes % (auto) 11.6 %; Neutrophils % (auto) 74.5 %; Platelet Count 237 K/uL (130-400); RDW Coefficient of Variation 12.7 % (11.5-14.5); RDW Standard Deviation 43.9 fL (36.4-46.3); Red Blood Count 3.64 M/uL (4.2-5.4); White Blood Count 7.13 K/uL (4.8-10.8)
[2022-02-19] MEDS: LEVOTHYROXINE SODIUM 50 MCG TABLET PO SCH (07:54)
[2022-02-19] MEDS: SOTALOL HCL 80 MG TAB PO SCH ×2 (08:22→21:24)
[2022-02-19] MEDS: SERTRALINE HCL 50 MG TABLET PO SCH (08:22)
[2022-02-19] MEDS: RIVAROXABAN 20 MG TAB PO SCH (08:22)
[2022-02-19 08:23] LABS: BUN Creatinine Ratio 15.5 (10-20); Calcium 8.3 mg/dl (8.5-10.1); Creatinine Clr Calc Pharmacy 61.8 ml/min; Est GFR (African American) 92.6 ml/min; Est GFR (Non-African American) 79.9 ml/min; Magnesium 1.7 mg/dl (1.7-2.4)
[2022-02-19 08:32] LABS: Troponin I High Sensitivity 36.3 pg/ml (0-14)
[2022-02-19] MEDS: PANTOprazole 40 MG TAB PO SCH (09:46)
[2022-02-19] MEDS: CHOLECALCIFEROL 5,000 UNITS 125 MCG TAB PO SCH (09:46)
[2022-02-19] MEDS ORDERED: traMADol HCL 50 MG TABLET PO PRN (10:35)
--- NOTE | 2022-02-19 10:35 | Communication Note ---
Date of Service: February 19, 2022 82-year-old woman with history of A. fib on Xarelto, CAD, hypertension, hyperlipidemia, questionable history of TIA, who presented with COVID symptoms [nausea, severe headache, cough and positive contact]. Patient reports she was fully vaccinated on boosted [booster dose about 6 months ago] Currently reports headache, nausea and chills. Reports sore throat and cough occasionally productive. Denies any chest pain, shortness of breath, palpitations, abdominal pain, diarrhea or fever. Physical exam notable for elderly woman, obese, in no obvious distress, chest is clear to auscultation bilaterally. Being managed for COVID symptoms Labs today notable for hemoglobin of 11.1, troponin high-sensitivity elevated at 37.436.3 Chest x-ray on admission notable for subtwo bilateral interstitial coarsening that may represent atelectasis no airspace consolidation. Patient is currently on remdesivir. Continue supportive care with antiemetic, cough medicine. Scheduled Tylenol for headache. Continue home levothyroxine, Xarelto, sotalol, sertraline Elevated BP this morning. Monitor for now Mildly elevated trop likely due to demand. No chest pain/ischemic EKG changes. Agree with other plans as detailed in H&P by Dr. Prieto this morning
[2022-02-19] MEDS: BENZONATATE 100 MG CAPSULE PO PRN ×2 (12:52→21:22)
--- NOTE | 2022-02-19 13:06 | Electrocardiogram Report ---
Test Reason : Blood Pressure : / mmHG Vent. Rate : 062 BPM Atrial Rate : 062 BPM P-R Int : 192 ms QRS Dur : 088 ms QT Int : 466 ms P-R-T Axes : 088 014 031 degrees QTc Int : 472 ms Normal sinus rhythm Normal ECG When compared with ECG of 18-FEB-2022 23:00, (unconfirmed) ST no longer depressed in Inferior leads Confirmed by Hong Manzano ([id number]) on 02/19/2022 1:06:14 PM Referred By: REFERRED SELF Confirmed By:Nato Manzano
--- NOTE | 2022-02-19 13:17 | Electrocardiogram Report ---
Test Reason : Blood Pressure : / mmHG Vent. Rate : 078 BPM Atrial Rate : 078 BPM P-R Int : 168 ms QRS Dur : 082 ms QT Int : 386 ms P-R-T Axes : 083 027 016 degrees QTc Int : 440 ms Poor data quality, interpretation may be adversely affected Normal sinus rhythm Nonspecific ST and T wave abnormality Abnormal ECG When compared with ECG of 06-JAN-2018 08:26, Nonspecific T wave abnormality has replaced inverted T waves in Inferior leads Confirmed by Hong Manzano ([id number]) on 02/19/2022 1:16:47 PM Referred By: REFERRED SELF Confirmed By:Nato Manzano
[2022-02-19] MEDS: ACETAMINOPHEN 325 MG TAB PO SCH (14:43)
[2022-02-19 17:04] LABS: Appearance Urine Clear (Clear); Bacteria Urine Automated Negative (Negative); Bilirubin Urine Negative (Negative); Blood Urine Negative (Negative); Cast Urine Automated 0 /lpf (0-5); Color Urine Yellow; Epithelial Cell Urine Auto 20-30 /lpf (0-5); Glucose Urine UA Negative (Negative); Ketones Urine Negative (Negative); Leukocyte Esterase Urine Trace (Negative); Nitrite Urine Negative (Negative); Protein Urine Negative (Negative); RBC Urine Automated 0-4 /hpf (0-4); Specific Gravity Urine 1.005 (1.000-1.030); Urobilinogen Urine Negative (Negative); pH Urine 6.5 (4.5-7.5)
[2022-02-19] MEDS ORDERED: COUGH DROP (SUGAR FREE) LOZ 24 LOZ/1 BOX BUCCAL STA (21:01)
[2022-02-19] MEDS: REMDESIVIR 100 MG in SODIUM CHLORIDE 0.9% 230 ML IV SCH (21:06)
[2022-02-19] MEDS: guaiFENesin 600 MG TABCR PO SCH (21:22)
[2022-02-19] MEDS: FAMOTIDINE 20 MG TAB PO SCH (21:23)
[2022-02-19] MEDS: traZODone HCL 50 MG TAB PO SCH (21:24)
[2022-02-20] MEDS: ACETAMINOPHEN 325 MG TAB PO SCH ×4 (00:17→18:01)
[2022-02-20] MEDS: LEVOTHYROXINE SODIUM 50 MCG TABLET PO SCH (06:12)
[2022-02-20 08:22] LABS: Albumin Level 3.2 gm/dl (3.4-5.0); Bilirubin,Total 0.3 mg/dl (0.2-1.0); Creatinine Clr Calc Pharmacy 53.2 ml/min; Est GFR (African American) 76.6 ml/min; Est GFR (Non-African American) 66.1 ml/min; Total Protein 5.4 gm/dl (6.0-8.3)
[2022-02-20] MEDS: guaiFENesin 600 MG TABCR PO SCH ×2 (09:27→21:00)
[2022-02-20] MEDS: SERTRALINE HCL 50 MG TABLET PO SCH (09:28)
[2022-02-20] MEDS: CHOLECALCIFEROL 5,000 UNITS 125 MCG TAB PO SCH (09:28)
[2022-02-20] MEDS: RIVAROXABAN 20 MG TAB PO SCH (09:28)
[2022-02-20] MEDS: PANTOprazole 40 MG TAB PO SCH (09:28)
[2022-02-20] MEDS: SOTALOL HCL 80 MG TAB PO SCH ×2 (09:29→21:00)
[2022-02-20] MEDS ORDERED: LORATADINE 10 MG TAB PO ONE (10:21)
[2022-02-20] MEDS: LOSARTAN POTASSIUM 50 MG TAB PO SCH (10:41)
--- NOTE | 2022-02-20 11:11 | Hospitalist Progress Note ---
Date of Service February 20, 2022 Assessment & Plan (1) Headache: (2) COVID-19: Plan: COVID 19 infection in a patient that is fully vaccinated and boosted CXR showed Subtle bilateral interstitial coarsening may represent atelectasis. Currently on remdesivir Last fever was at midnight Continue supportive care. Continue antitussive Continue scheduled tylenol Start loratadine (3) Elevated troponin: Plan: Troponin HS was mildly elevated on presentation Patient denied chest pain EKG did not show acute ischemic changes Likely from demand. BP was elevated at the time as well. (4) Atrial fibrillation: Plan: Continue sotalol Continue home xarelto (5) Hypertension: Plan: Continue home losartan BP was elevated but better controlled DVT ppx- xarelto Discharge: Tomorrow Admission and Anticipated Discharge Date Admission Date: February 19, 2022 Subjective Patient seen and examined. Reports headache still present. Was severe, mildly improved with tylenol. Described as band around the head/face Reports congestion is improving Still has cough Denied any chest pain, palpitation Reported no chills today so far. Last fever was around midnight Denies any shortness of breath. Having malaise Still on room air at rest. Denied nausea, vomiting, abd pain, diarrhea Denied dysuria, freq, urgency Physical Exam Constitutional: + well hydrated; no acute distress Eyes: PERRL, conjunctivae normal, anicteric sclerae ENMT: external ear and nose normal, oropharynx normal Respiratory: normal respiratory effort, lungs clear to auscultation Cardiovascular: Rate/Rhythm: regular rate and regular rhythm S1 S2 Gastrointestinal (Abdomen): normal bowel sounds, soft, nontender, no hepatosplenomegaly Musculoskeletal: no cyanosis or clubbing, extremities motor strength 5/5 Neurologic: PERRL, EOMI, accommodation nl, no face palsy, no dysarthria Psychiatric: A+Ox3, euthymic affect Results & Data Results & Data ([facility]) Vital Signs (Past 12 Hours) Vital Signs Temp Pulse Pulse Resp BP Pulse Ox 02/20/22 07:41 36.7 C 63 20 120/77 93 02/20/22 06:49 68 02/20/22 03:40 37.1 C 67 18 123/73 90 02/20/22 01:23 37.5 C 02/20/22 00:18 38.5 C H 68 16 124/71 92 02/19/22 23:31 63 Laboratory Results Abnormal lab results 02/19/22 02/19/22 02/19/22 Range/Units 12:29 16:40 18:59 Troponin I High Sens 35.0 H 25.7 H (0-14) pg/ml Total Protein (6.0-8.3) gm/dl Albumin (3.4-5.0) gm/dl Ur Leukocyte Esterase Trace H (Negative) U Epithel Cells (Auto) 20-30 H (0-5) /lpf 02/20/22 Range/Units 07:10 Troponin I High Sens (0-14) pg/ml Total Protein 5.4 L (6.0-8.3) gm/dl Albumin 3.2 L (3.4-5.0) gm/dl Ur Leukocyte Esterase (Negative) U Epithel Cells (Auto) (0-5) /lpf
[2022-02-20] MEDS: REMDESIVIR 100 MG in SODIUM CHLORIDE 0.9% 230 ML IV SCH (20:55)
[2022-02-20] MEDS: traZODone HCL 50 MG TAB PO SCH (21:00)
[2022-02-20] MEDS: FAMOTIDINE 20 MG TAB PO SCH (21:00)
[2022-02-21] MEDS: ACETAMINOPHEN 325 MG TAB PO SCH ×3 (00:26→12:05)
[2022-02-21] MEDS: LEVOTHYROXINE SODIUM 50 MCG TABLET PO SCH (05:40)
[2022-02-21 07:50] LABS: Hematocrit (blood only) 38.9 % (37-47); Hemoglobin 12.5 g/dL (12.0-16.0); Mean Corpuscular Hgb Conc 32.1 g/dL (32-36); Mean Corpuscular Volume 93.5 fL (80-100); Platelet Count 241 K/uL (130-400); RDW Coefficient of Variation 13.1 % (11.5-14.5); RDW Standard Deviation 44.4 fL (36.4-46.3); Red Blood Count 4.16 M/uL (4.2-5.4); White Blood Count 3.74 K/uL (4.8-10.8)
[2022-02-21 08:14] LABS: Calcium 8.2 mg/dl (8.5-10.1); Creatinine Clr Calc Pharmacy 52.2 ml/min; Est GFR (African American) 75.5 ml/min; Est GFR (Non-African American) 65.2 ml/min; Potassium 3.9 mmol/L (3.5-5.1)
[2022-02-21] MEDS ORDERED: LORATADINE 10 MG TAB PO SCH (09:00)
[2022-02-21] MEDS: PANTOprazole 40 MG TAB PO SCH (09:34)
[2022-02-21] MEDS: guaiFENesin 600 MG TABCR PO SCH (09:34)
[2022-02-21] MEDS: SERTRALINE HCL 50 MG TABLET PO SCH (09:35)
[2022-02-21] MEDS: CHOLECALCIFEROL 5,000 UNITS 125 MCG TAB PO SCH (09:35)
[2022-02-21] MEDS: SOTALOL HCL 80 MG TAB PO SCH (09:36)
[2022-02-21] MEDS: LOSARTAN POTASSIUM 50 MG TAB PO SCH (09:37)
[2022-02-21] MEDS: RIVAROXABAN 20 MG TAB PO SCH (09:39)
[2022-02-21] MEDS ORDERED: PROMETHAZINE HCL 12.5 MG/10 ML UDP PO PRN (13:17)
--- NOTE | 2022-02-21 13:51 | Hospitalist Progress Note ---
Date of Service February 21, 2022 Assessment & Plan (1) Headache: (2) COVID-19: Plan: COVID 19 infection in a patient that is fully vaccinated and boosted CXR showed Subtle bilateral interstitial coarsening may represent atelectasis. Saturating well on room air Receive remdesivir for 3 days Continue supportive care. Continue antitussive Clinically improving (3) Elevated troponin: Plan: Troponin HS was mildly elevated on presentation in setting of COVID 19 infection, Elevated BP Patient denied chest pain EKG did not show acute ischemic changes Likely from demand (4) Atrial fibrillation: Plan: Continue sotalol Continue home xarelto (5) Hypertension: Plan: Continue home losartan Monitor DVT Px Xarelto Disposition: Home today Admission and Anticipated Discharge Date Admission Date: February 19, 2022 Subjective Patient is seen and examined at bedside States feeling better today Nauseous earlier today which improved Minimal none expectorant cough Denies any shortness of breath, dizziness, abdominal pain Offers no other complaints Review of Systems Review of Systems: All systems reviewed & are unremarkable except as noted in Subjective Physical Exam Physical Exam: Physical Exam: Vitals signs as noted above General Appearance:Moderately built and nourished, no apparent distress Head: normocephalic, Atraumatic Eyes: normal inspection, EOMI Neck: supple, Trachea midline Respiratory/Chest: Decreased breath sounds, CTA, No accessory muscle use Cardiovascular: S1, S2, No murmur Abdomen/GI:Soft, Non tender, Bowel sounds present Extremities/Musculoskeletal:normal inspection, no edema Neurologic/Psych:AAOX3, grossly no focal neurological deficits Skin: normal color, warm Results & Data Results & Data ([facility]) Vital Signs (Past 12 Hours) Vital Signs Temp Pulse Resp BP Pulse Ox 02/21/22 12:02 36.7 C 64 16 150/77 H 92 02/21/22 05:46 36.4 C L 61 18 137/85 95 Laboratory Results Short CBC 02/21/22 Range/Units 06:47 WBC 3.74 L (4.8-10.8) K/uL Hgb 12.5 (12.0-16.0) g/dL Hct 38.9 (37-47) % Plt Count 241 (130-400) K/uL BMP 02/21/22 06:47 Sodium 139 Potassium 3.9 Chloride 107 Carbon Dioxide 25 BUN 16 Creatinine 0.84 Glucose 124 H Calcium 8.2 L Liver Function 02/21/22 Range/Units 06:47 AST 17 (13-39) U/L ALT 13 (7-52) U/L
--- NOTE | 2022-02-21 15:49 | Discharge Summary ---
Date of Service February 21, 2022 Admission HPI Per Admitting Provider CHIEF COMPLAINT: COVID. HISTORY OF PRESENT ILLNESS: This is an 82-year-old female with past medical history significant for atrial fibrillation, history of CAD with longstanding known occluded ostial medial, carotid artery disease, hypertension, hyperlipidemia, intolerant to statins, questionable history of TIA, history of possible GI bleeding, presents with COVID. The patient is COVID vaccinated and boosted. The patient and her sister traveled for granddaughter's graduation and then sister developed COVID symptoms and the patient also developed severe nausea, severe headaches, bone pains, mild cough and she tested for COVID, came back positive and she was sent here by PCP. Currently, saturating okay on room air. Has some temperature spike. COVID, came back positive. Chest x-ray looks okay. The patient is on Xarelto, so no PE studies done. C-reactive protein minimally elevated at 1.17. Troponin I high sensitivity 37.4, so we were called for admission to follow serial cardiac enzymes. Currently, the patient is resting comfortably and hemodynamically stable. Denies any chest pain, denies any shortness of breath. No blurred visions, no earache, no runny nose, has some scratchy throat. Appetite is okay, had one episode of vomiting. No abdominal pain. Normal bowel and bladder movements. She says her right leg is lately getting swollen on and off like since 1 month. Ambulating okay without any support, though her balance is not as good as before. Admission Exam Per Admitting Provider PHYSICAL EXAMINATION: GENERAL: The patient is of moderate build, not in acute distress. VITAL SIGNS: Temperature 38, pulse 82, respiratory rate 18, blood pressure 134/84, oxygen 94% on room air. HEENT: Pupils equal, round and reactive to light. Oral mucosa moist. NECK: No JVD, no neck masses. CARDIOVASCULAR: S1 and S2 heard. Regular rate and rhythm. No murmur, no gallop. RESPIRATORY SYSTEM: Normal AP diameter. No accessory muscle use. No wheezing, no crackles. ABDOMEN: Soft, bowel sounds present, nontender, no distention. CENTRAL NERVOUS SYSTEM: Cranial nerves II-XII grossly intact, nonfocal. EXTREMITIES: Right lower extremity is slightly edematous. No erythema seen. Principal Diagnosis COVID 19 infection Discharge Data Allergies Allergy/AdvReac Type Severity Reaction Status Date / Time ciprofloxacin Allergy Intermediate ITCHING Verified 02/18/22 22:00 WITH IV MEDICATION levofloxacin Allergy Intermediate ITCHING Verified 02/18/22 22:00 WITH IV MEDICATION Consultations 02/19/22 00:02 ED Decision to Admit Stat Hospital Course (1) Headache: (2) COVID-19: COVID 19 infection in a patient that is fully vaccinated and boosted CXR showed Subtle bilateral interstitial coarsening may represent atelectasis. Saturating well on room air Receive remdesivir for 3 days Continue supportive care. Continue antitussive Clinically improving (3) Elevated troponin: Troponin HS was mildly elevated on presentation in setting of COVID 19 i nfection, Elevated BP Patient denied chest pain EKG did not show acute ischemic changes Likely from demand (4) Atrial fibrillation: Continue sotalol Continue home xarelto (5) Hypertension: Continue home losartan Monitor DVT Px Xarelto Disposition: Home today Total Time Total Time Spent Total Time Spent (In Minutes): 45 minutes Discharge Plan Discharge Items Patient Disposition: Home - Self-Care Reason For Visit: ILLNESS Discharge Diagnosis: COVID 19 infection Activity: Per Instructions section Exercise/Sports: Gradually increase as tolerated Non-emergency contact: Primary Care Provider Call non-emergency contact if: you have any medication questions, your symptoms worsen, your pain is concerning for you and you have a fever Follow-up/Referrals: Vickey Medina [Primary Care Provider] - 02/26/22 5:00 pm (Dr Medina will call you for a telephone appointment on Saturday, a little after 5PM. ) Diet: Heart Healthy Addtl Attending Provider Instructions: Follow-up with your primary care physician in 1 week Seek immediate medical attention if your symptoms reoccur or worsen Please take all medications as instructed on discharge list below. Please call if you have any questions or problems. You can reach a [facility] hospitalist on duty at [facility] 24 hours a day by calling [phone] Home Isolation COVID-19 Instructions The following information about Home Isolation is from the CDC Website: https://www.cdc.gov/coronavirus/2019-ncov/hcp/ndbzfmxv-ufogsup-kziixj.html Stay home except to get medical care People who are mildly ill with COVID-19 are able to isolate at home during their illness. You should restrict activities outside your home, except for getting medical care. Do not go to work, school, or public areas. Avoid using public transportation, ride-sharing, or taxis. Separate yourself from other people and animals in your home People: As much as possible, you should stay in a specific room and away from other people in your home. Also, you should use a separate bathroom, if available. Animals: You should restrict contact with pets and other animals while you are sick with COVID-19, just like you would around other people. Although there have not been reports of pets or other animals becoming sick with COVID-19, it is still recommended that people sick with COVID-19 limit contact with animals until more information is known about the virus. When possible, have another member of your household care for your animals while you are sick. If you are sick with COVID-19, avoid contact with your pet, including petting, snuggling, being kissed or licked, and sharing food. If you must care for your pet or be around animals while you are sick, wash your hands before and after you interact with pets and wear a face mask. Call ahead before visiting your doctor If you have a medical appointment, call the healthcare provider and tell them that you have or may have COVID-19. This will help the healthcare providers office take steps to keep other people from getting infected or exposed. Wear a face mask You should wear a face mask when you are around other people (e.g., sharing a room or vehicle) or pets and before you enter a healthcare providers office. If you are not able to wear a face mask (for example, because it causes trouble breathing), then people who live with you should not stay in the same room with you, or they should wear a face mask if they enter your room. Cover your coughs and sneezes Cover your mouth and nose with a tissue when you cough or sneeze. Throw used tissues in a lined trash can. Immediately wash your hands with soap and water for at least 20 seconds or, if soap and water are not available, clean your hands with an alcohol-based hand shelver that contains at least 60% alcohol. Clean your hands often Wash your hands often with soap and water for at least 20 seconds, especially after blowing your nose, coughing, or sneezing; going to the bathroom; and before eating or preparing food. If soap and water are not readily available, use an alcohol-based hand shelver with at least 60% alcohol, covering all surfaces of your hands and rubbing them together until they feel dry. Soap and water are the best option if hands are visibly dirty. Avoid touching your eyes, nose, and mouth with unwashed hands. Avoid sharing personal household items You should not share dishes, drinking glasses, cups, eating utensils, towels, or bedding with other people or pets in your home. After using these items, they should be washed thoroughly with soap and water. Clean all high-touch surfaces everyday High touch surfaces include counters, tabletops, doorknobs, bathroom fixtures, toilets, phones, keyboards, tablets, and bedside tables. Also, clean any surfaces that may have blood, stool, or body fluids on them. Use a household cleaning spray or wipe, according to the label instructions. Labels contain instructions for safe and effective use of the cleaning product including precautions you should take when applying the product, such as wearing gloves and making sure you have good ventilation during use of the product. Monitor your symptoms Seek prompt medical attention if your illness is worsening (e.g., difficulty breathing).Beforeseeking care, call your healthcare provider and tell them that you have, or are being evaluated for, COVID-19. Put on a face mask before you enter the facility. These steps will help the healthcare providers office to keep other people in the office or waiting room from getting infected or exposed. Ask your healthcare provider to call the local or state health department. Persons who are placed under active monitoring or facilitated self- monitoring should follow instructions provided by their local health department or occupational health professionals, as appropriate. When working with your local health department check their available hours. If you have a medical emergency and need to call 911, notify the dispatch personnel that you have, or are being evaluated for COVID-19. If possible, put on a face mask before emergency medical services arrive. Discontinuing home isolation Patients with confirmed COVID-19 should remain under home isolation precautions until the risk of secondary transmission to others is thought to be low. The decision to discontinue home isolation precautions should be made on a cybi-ga-cifm basis, in consultation with healthcare providers and state and local health departments. Coronavirus disease 2019 (COVID-19) is a virus that causes a respiratory illness. It is caused by a coronavirus called 2019 novel coronavirus (2019- nCoV). There are many types of coronavirus. Coronaviruses are a very common cause of bronchitis. They may sometimes cause lung infection(pneumonia). Symptoms can range from mild to severe respiratory illness. These viruses are also foundin some animals. COVID-19 was first found in people in [facility], in late 2018. In 2020, several cases of COVID-19 have been confirmed in the [place] Public health officials are working to find the source. How the virus spreads is not yet fully known. It may be spread through droplets of fluid that a person coughs or sneezes into the air. It may be spread if you touch a surface with virus on it, such as a handle or object, and then touch your mouth. What are the symptoms of COVID-19? Some people have no symptoms or mild symptoms. Symptoms may appear 2 to 14 days after contact with the virus. Symptoms can include: Fever Coughing Trouble breathing What are possible complications from COVID-19? In many cases, this virus can cause infection (pneumonia) in both lungs. In some cases, this can cause . How is COVID-19 diagnosed? Your healthcare provider will ask about your symptoms. He or she will also ask about your recent travel and contact with sick people. Testing for the virus is only done through the CDC. If yourhealthcare provider thinks you may have COVID- 19, he or she will work with your local health department and the CDC on testing. Follow all instructions from your healthcare provider. COVID-19 is diagnosed by: Nasal and throat swab. A cotton-tipped swab is wiped inside your nose or throat. This is done to check for viruses in your nasal mucus. Sputum culture. A small sample of mucus coughed from your lungs (sputum) is collected if you have a cough. It is checked for the virus. How is COVID-19 treated? There is currently no medicine to treat the virus. Treatment is done to help your body while it fights the virus. This is known as supportive care. Supportive care may include: Pain medicine. These include acetaminophen and ibuprofen. They are used to help ease pain and reduce fever. Bed rest. This helps your body fight the illness. For severe illness, you may need to stay in the hospital. Care during severe illness may include: IV (intravenous) fluids.These are given through a vein to help keep your body hydrated. Oxygen. Supplemental oxygen or ventilation with a breathing machine (ventilator) may be given. This is done to keep enough oxygen in your body. Are you at risk for COVID-19? If youve been to a place where people have been sick with this virus, you are at risk for infection. You are at risk if you: Recently traveled to an affected area Had contact with a sick person who recently traveled to this area Had contact with a person who was diagnosed with COVID-19 How can COVID-19 be prevented? There is no vaccine yet. The best prevention is to not have contact with the virus. The CDC advises that people should not travel to areas where there are COVID-19 outbreaks right now for any reason that is not urgent. To help prevent spreading the infection, wash your hands often, or use an alcohol-basedhand shelver. If you are in an area with COVID-19: Wash your hands often. Or use an alcohol-based hand shelver often. Only touch your eyes, nose, or mouth with clean hands. Dont have contact with people who are sick. Follow local instructions about being in public. For example, you may be told to not use public transport for a period of time. Stay away from markets that have live or animals. Wash your hands after touching any animals. Don't touch animals that may be sick. Dont share eating or drinking tools with sick people. Dont kiss someone who is sick. Clean surfaces often with disinfectant. If you were in an area with COVID-19 in the last 14 days: Call your healthcare provider. He or she can talk with local health staff to see what action may be needed. Follow all instructions from your provider. Take your temperature every morning and evening for at least 14 days. This is to check for fever. Keep a record of the readings. Keep watch for symptoms of the virus. Tell your provider right away if you have symptoms. If you were in an area with COVID-19 and have a fever or other symptoms: Dont panic. Keep in mind that other illnesses can cause similar symptoms. Stay away from work, school, and public places. Limit physical contact with family members. Don't kiss anyone or share eating or drinking utensils. Clean surfaces you touch with disinfectant. This is to help prevent the virus from spreading. Call your healthcare provider. Explain that you have been exposed to COVID-19 and have symptoms. Do this before going to any hospital. Wait for instructions. Keep in mind that healthcare staff may wear protective equipment such as masks, gowns, gloves, and eye protection. You may be put in a separate room. This is to prevent the possible virus from spreading. Tell the healthcare staff about recent travel. This includes local travel on public transport. Staff may need to find other people you have been in contact with. Follow all instructions the healthcare staff give you. If you have been diagnosed with COVID-19 Follow all instructions from your healthcare provider. Dont leave your home, except to get medical care. Call your healthcare providers office before going. They can prepare and give you instructions. This will help prevent the virus from spreading. Dont go to work, school, or public areas. Dont use public transport or taxis. Stay away from other people in your home. Have them wear face masks around you. Dont share household items or food. Wear a face mask if you can. This includes at home or in a medical facility. Cover your face with a tissue when you cough or sneeze. Throw the tissue away. Wash your hands. Wash your hands often. Caregivers should: Follow all instructions from healthcare staff. Wear a face mask and protective clothing as advised. Wash hands often. Keep track of the sick persons symptoms. Clean surfaces, fabrics, and laundry thoroughly. Keep other people away from the sick person. When to call your healthcare provider Call your healthcare provider: If youve recently traveled and have symptoms If you have been diagnosed with COVID-19 and your symptoms are worse To learn more To find out more about COVID-19, visit the CDC website at www.cdc.gov/coronavirus/2019-ncov/index.html. [employer]. [address] [place] [address], [place] [address]. All rights reserved. This information is not intended as a substitute for professional medical care. Always follow your healthcare professional's instructions. This information has been adapted from [employer] Pending Studies at Discharge: No Stand-Alone Forms: [facility], Sm[facility] Cessation Medications and DC Order Prescriptions: New benzonatate 100 mg Capsule 100 mg PO TID PRN (Reason: cough) Qty: 10 RF: 0 Continued levothyroxine 50 mcg tablet 50 mcg PO DAILY Qty: 90 RF: 0 sotalol 80 mg tablet 80 mg PO BID RF: 0 rivaroxaban 20 mg tablet 20 mg PO DAILY Qty: 90 RF: 0 cholecalciferol (vitamin D3) 125 mcg (5,000 unit) tablet 5,000 units PO DAILY RF: 0 sertraline 25 mg tablet 25 mg PO DAILY RF: 0 pantoprazole 20 mg tablet,delayed release (DR/EC) 20 mg PO DAILY RF: 0 trazodone 50 mg tablet 50 mg PO HS RF: 0 acetaminophen [Tylenol Extra Strength] 500 mg Tablet 1,000 mg PO DIRECTED PRN (Reason: Pain) RF: 0 famotidine 20 mg Tablet 20 mg PO HS RF: 0 dicyclomine 10 mg capsule 10 mg PO TID PRN (Reason: ABD DISCOMFORT) RF: 0 losartan 100 mg tablet 100 mg PO DAILY RF: 0 Discharge Orders: Discharge Order (Routine); Ordered 02/21/22 Ordered By: Hari Phan Admission Data Admit Date/Time: 02/19/22 01:06 Attending Provider: Hari Phan Admit Provider: Romulo Prieto Primary Care Provider: Vickey Medina Other Providers: Romulo Prieto Other Interventions: Discharge Summary Assessment (RN) Last Done: 02/21/22 14:56
== END 2022-02-21 15:40 | disposition home or self-care (01) | DRG 178 ==
LOC: ED 21:26 → SUATTDRO 02-19 01:06 → 2N 02-19 01:06 → INTOOBSV 02-19 01:06 → 2N 02-19 06:41

== ENCOUNTER 2024-01-14 08:14 | Observation (INO) ==
--- NOTE | 2024-01-14 10:04 | Pre Anesthesia Assessment ---
Date of Service January 14, 2024 Pre Sedation Assessment Vital Signs Temp Pulse Resp BP Pulse Ox O2 Del Method 01/14/24 08:27 97.9 F 65 16 178/76 H 98 Room Air Cardiovascular + regular rate Respiratory + respiratory effort normal Pre-Sedation Airway Assessment Smoking Status: Never smoker Hx Sleep Apnea: No Hx Difficult Intubation: No Short, Thick Neck: No Thyromental Distance: < 3.5 Finger Breadths Oral Cavity: + WNL Mallampati Class: III ASA: ASA3 Procedure Planning Contraindications for Sedation: none Current Medications Reviewed: Yes Notes The planned sedation has been discussed with the patient. Informed Consent was obtained. I have identified the patient, determined the appropriateness of sedation and have assessed the patient immediately prior to the procedure. All medicine(s) and interventions are by my order.
--- NOTE | 2024-01-14 10:04 | History & Physical Bridge Note ---
Date of Service January 14, 2024 History & Physical Bridge Note I have examined the patient, reviewed the History & Physical and in the interval since the performance of the History & Physical I have noted the following changes of clinical significance: no changes noted
[2024-01-14] MEDS: HEPARIN (PORCINE) 1000 UNIT/ML 10 ML (CATH LAB USE ONLY) ONE ×2 (11:33→11:49)
[2024-01-14] MEDS: niCARdipine HCL INJ 2.5 MG/ML 10 ML AMP ONE (11:34)
[2024-01-14] MEDS: fentaNYL citrate PF 100 MCG/2 ML VIAL ONE (11:34)
[2024-01-14] MEDS: MIDAZOLAM HCL 1 MG/ML 2ML VIAL ONE ×2 (11:34→11:35)
[2024-01-14] MEDS: NITROGLYCERIN/D5W 100MCG/ML 20ML SYR ONE (11:35)
[2024-01-14] MEDS: OPTIRAY 350 ONE (11:49)
[2024-01-14] MEDS: CLOPIDOGREL BISULFATE 300 MG TAB ONE (11:50)
--- NOTE | 2024-01-14 12:02 | Post Anesthesia Assessment ---
Date of Service January 14, 2024 Post Sedation Assessment Vital Signs Temp Pulse Resp BP Pulse Ox O2 Del Method 01/14/24 08:27 97.9 F 65 16 178/76 H 98 Room Air Recovery Score Activity: Moves 4 extremities Respiration: Deep Breath/Cough Circulation: +/-20% PreAnes Value Consciousness: Fully Awake Oxygen Saturation: O2 needed for >90% Discharge Sedation Level of Care: Fast Track Phase II Post Sedation Plan On clinical assessment, the patient appears to have tolerated the sedation without complications. Patient is recovering as anticipated. Patient will continue to be monitored by nursing and may be discharged when sedation discharge criteria are met per below protocol. Upon Completions of procedure up to 15 minutes continue every 5 minute vital signs and the P.A.R. score; then discharge to a Phase I or Fast Track to Phase II per the following guidelines: * Discharge Patient to appropriate Phase II area if PAR is 8 or greater or return to pre- procedure baseline. The post - procedure orders will be as directed. * If PAR score is less than 8 or not return to pre-procedure baseline then patient will follow Phase I monitoring till PAR is reached for Phase II. The Phase I may be done in procedure room or may call to secure a Phase I area. * If naloxone or flumazenil are used for reversal, hold in Phase I for continued monitoring from when last reversal dose was given for a minimum of 60 minutes or longer pending the nurse and/or physician discretion of patient condition before discharge to Phase II. Please call the Sedation Physician to re-evaluate and complete post-note for discharge to Phase II area. Do NOT discharge from procedure sedation or Phase 1 until post- sedation evaluation note is complete by procedure /sedation MD Sedation Discharge Instructions to be given to the patient at discharge to home.
[2024-01-14] MEDS ORDERED: ONDANSETRON INJ 2 MG/ML 2 ML VIAL IV PRN (12:03)
[2024-01-14] MEDS ORDERED: traMADol HCL 50 MG TABLET PO PRN (12:18)
--- NOTE | 2024-01-14 12:36 | Cardiac Catheterization ---
[facility] Data: Senior Officer Cardiac Status Clinical evaluation leading to the procedure CAD Presenation: Unstable angina Anginal Classification: CCS III Diagnostic Physicians Name: Hong Stewart MD Closure Device Recommendations: PCI without planned CABG Cardiac Cath Procedure Full Procedure Date January 14, 2024 Pre-Procedure Diagnosis Pre-Procedure Diagnosis: Angina and CAD AUC Score AUC Score: 7 Post-Procedure Diagnosis Post-Procedure Diagnosis: Severe CAD, Successful PCI and Normal Intracardiac Pressures Procedure(s) Performed Procedure(s) Performed: Coronary Angiography, Left Heart Cath, Drug Eluting Stent and Ultrasound Guided Vascular Access [employer] S[employer] Machine Operator Hong Stewart MD Fuse Cutter(s) Elan Estimated Blood Loss Estimated Blood Loss: 10 Medication(s) Medication(s): Clopidogrel, Fentanyl, Heparin, Lidocaine 1%, Nicardipine, Nitroglycerin and Versed Summary of Findings Indication: Suspected accelerating angina. History of coronary artery disease. Prior indeterminant stress test Access: 6 Fr left radial artery, 6 Fr right radial artery under ultrasound guidance Initial attempt made for procedural left radial artery. Appeared to access excessively radial artery but continued up above the elbow. Despite multiple at tempts with different wires unable to navigate into brachial artery and right artery access obtained. Catheters: JL 3.5, JR4, AR-1 guide Findings: LM -normal caliber, no significant disease LAD -medium caliber, 30-40% proximal to mid disease, mid vessel angulated distal vessel small tapers to apex. Small to medium caliber D1 with 98% ostial stenosis. Medium D2 without significant disease. Circumflex -medium caliber vessel, mid segment luminal regularities. Small OM without disease. RCA -dominant, large caliber, 20 to 30% proximal to mid disease, distal vessel without significant disease. Medium RPDA with 95+% mid segment stenosis. Large right PLB without significant disease. LVEDP -13 -- PCI -- Antithrombotic therapy: Heparin, clopidogrel Procedure: RCA cannulated with AR-1 guide Pre-procedure flow FARNAZ 3 Manager [employer] 50 wire passed across lesion into distal vessel Mid RPDA lesion predilated with 2.0 and 2.5 compliant balloon Dilated lesion stented with 2.25 x 12 mm Xience drug-eluting stent Stent post-dilated with 2.5 noncompliant balloon IC vasodilators administered for spasm Post procedure FARNAZ 3 flow, stent well expanded with minimal residual stenosis and no apparent cardiac complications. Arterial Closure: TR band Summary: 1. Severe branch vessel coronary artery disease - 95+% mid RPDA 98% small D2 2. Normal intracardiac filling pressure 3. Successful PCI of mid RPDA with single drug-eluting stent (2.25 x 12 mm Xience; postdilated with 2.5 NC). Recommendations: To PCU for continued monitoring Loaded with clopidogrel 600 mg in Senior Officer Continue dual-antiplatelet therapy with Xarelto, clopidogrel for 6 months Continue statin, and ASCVD risk factor modification Consult cardiac Rehab If refractory symptoms in the future PCI of ostial D1 could be considered. Hemodynamics Rest Ao:: 128/73/95 Final Ao: 158/68/101 LV: 156/13 Recommendations Recommendations: PCI without planned CABG Specimens Specimens: None Radiation Exposure (mGy) 1799 Contrast (mls) 175 Anesthesia Moderate 1402-0583 Procedural Complication(s) None Disposition PCU I attest to the content of the Intraoperative Record and any orders documented therein. Any exceptions are noted below. [facility] Card Cath Procedure Codes Cardiac Catheterization Procedure 1: Cardiovascular Cath Procedures: 65115 Coronaries and LHC (+/-LV) Therapeutic Services & Ancillary Procedure 1: Cardiovascular Tx and Anc Procedures: 37620 Ultrasonic Guidance Vascular Access Moderate Sedation Procedure 1: Sedation/Anesthesia: 50891 Mod Sedation by the same physician;Init15 Min Child Age 5 & Up Procedure 2: Sedation/Anesthesia: 85782 Mod Sedation by the same physician; Ea [id number] Minutes Stenting Procedure 1: Cardiovascular Stent Procedures: 72837 Perc transcatheter placement of intracoronary stent(s), with ang PG Care Time/CCT Total # of Minutes Spent Total Time Spent with Patient: Total time spent is greater than 50% in coordination of care (as documented) at patient's floor/unit and/or counseling patient:
[2024-01-14] MEDS: SODIUM CHLORIDE 0.9% 1,000 ML IV SCH (17:03)
[2024-01-14] MEDS: LOSARTAN POTASSIUM 50 MG TAB PO SCH (17:20)
[2024-01-14] MEDS: ACETAMINOPHEN 325 MG TAB PO PRN (18:17)
[2024-01-14] MEDS: PANTOprazole 40 MG TAB PO SCH (20:57)
[2024-01-14] MEDS: SOTALOL HCL 80 MG TAB PO SCH (20:58)
[2024-01-15] MEDS: LEVOTHYROXINE SODIUM 50 MCG TABLET PO SCH (06:46)
[2024-01-15] MEDS: RIVAROXABAN 20 MG TAB PO SCH (09:22)
[2024-01-15] MEDS: ASPIRIN 81 MG ECTAB PO SCH (09:23)
[2024-01-15] MEDS: CLOPIDOGREL BISULFATE 75 MG TAB PO SCH (09:23)
--- NOTE | 2024-01-15 15:10 | Discharge Summary ---
Date of Service January 15, 2024 Admission HPI Per Admitting Provider Mrs. Brar a very pleasant 83-year-old woman with a history paroxysmal atrial fibrillation, coronary artery disease with reported occluded obtuse marginal, questionable history of TIA, mild carotid artery disease, dyslipidemia, hypertension and history of possible GI bleeding. Patient has been experiencing chest pain and shortness of breath for about 6 weeks. With little exertion has limiting dyspnea and fatigue. Chest pain is random. Symptoms are different from her usual atrial fibrillation and ECG today shows sinus rhythm. cardiac catheterization recommended to evaluate for ischemia. Discharge Data Procedures Performed Operation Date: 01/14/24 09:30 Actual Procedures p Cath, Left with Cors and Vent(Left) - MD ras Allan Cineradiography w/Routine Exam - Hong Stewart MD p Drug Eluting Stent SGl Vessel - MD ras Allan Ultrasound Vascular Access - Hong Stewart MD Hospital Course (1) Coronary artery disease: 2. Atrial fibrillationrhythm control with sotalol, QTc within normal limits; on anticoagulation 3. Hypertension 4. Dyslipidemia -- intolerant to 4+ statins 5. Carotid artery disease -- less than 50% 08/2017 Initially attempted to perform coronary angiography via left radial artery but unable to navigate catheter into brachial artery. Transition to access via right radial artery. Angiography revealed severe branch vessel disease with 95% mid RPDA and 98% ostial D1 stenosis (unclear if this is the same vessel that was thought to be occluded in the past). Underwent successful PCI of RPDA with single RADHA (2.25 x 12 Xience; postdilated with 2.5 NC). Post procedure admitted for observation. Remained chest pain-free. Electrically stable on telemetry. No apparent access site complications. Patient discharged home on dual therapy with clopidogrel, Xarelto. Follow-up with cardiology in 2 weeks. Will refer to cardiac rehab. Coding Level of Care Code 44246 IN/OBS DISCH 30 MIN/LESS Diagnoses Coronary artery disease I25.10
--- NOTE | 2024-01-17 05:47 | Electrocardiogram Report ---
Test Reason : Blood Pressure : / mmHG Vent. Rate : 053 BPM Atrial Rate : 053 BPM P-R Int : 188 ms QRS Dur : 090 ms QT Int : 466 ms P-R-T Axes : 066 -07 -08 degrees QTc Int : 437 ms Sinus bradycardia Minimal voltage criteria for LVH, may be normal variant Nonspecific T wave abnormality Abnormal ECG When compared with ECG of 17-DEC-2023 14:14, T wave inversion now evident in Anterior leads Confirmed by Nabil Thao ([id number]) on 01/17/2024 5:47:01 AM Referred By: Samara Bhatti Confirmed By:Nabil Thao
== END 2024-01-15 13:17 | disposition home or self-care (01) | DRG 322 ==
LOC: CC 08:14 → INTOOBSV 12:02 → 4W 12:02

== ENCOUNTER 2024-12-19 10:06 | Observation (INO) ==
--- NOTE | 2024-12-19 10:26 | Emergency Department Note ---
Impression & Plan Acute CVA (cerebrovascular accident), Acute left-sided muscle weakness ED Provider Note NAME: AYAH MONTERO AGE: 84 SEX: F : 1940 ARRIVES VIA: Walk-In INFORMANT: Patient ED PROVIDER(S): Jeffrey Orta DO CHIEF COMPLAINT: Left-sided weakness HPI: Patient is an 84-year-old female with a past medical history of A-fib on Xarelto who presents to the ER for left-sided arm weakness and leg weakness as well as trouble talking. Her symptoms per the who provides additional history started last night around 9:00. She was having trouble talking and this did get better. She went to bed and then when she woke up this morning around 5 the left-sided weakness was still present. Patient admits to a headache. No change or loss of vision. No chest pain or shortness of breath. No vomiting or diarrhea. No dysuria, urgency, or frequency. No other exacerbating or remitting factors. ADDITIONAL HISTORY OBTAINED: Per HPI Chronic Medical/Social Conditions Affecting Care: Per HPI PAST MEDICAL HISTORY:See Below PAST SURGICAL HISTORY:See Below FAMILY HISTORY:See Below SOCIAL HISTORY:See Below HOME MEDICATIONS:See Below ALLERGIES:See Below VITALS:See Below PHYSICAL EXAMINATION: GENERAL: Sitting up in bed, alert, well appearing, well nourished, no distress, non-toxic EYE EXAM: normal conjunctiva. OROPHARYNX: no exudate, no erythema, lips, buccal mucosa, and tongue normal and mucous membranes are moist NECK: supple, no nuchal rigidity, no adenopathy, non-tender LUNGS: Clear to auscultation. Normal chest wall mechanics HEART: no murmurs, S1 normal and S2 normal ABDOMEN: abdomen soft, non-tender, normo-active bowel sounds, no masses, no rebound or guarding. BACK: Back is symmetrical on inspection and there is no deformity, no midline tenderness, no CVA tenderness. SKIN: no rashes and no bruising UPPER EXTREMITIES: upper extremities are grossly normal. LOWER EXTREMITIES: No pitting edema. NEURO EXAM: Normal sensorium, left-sided facial droop with slightly slurred speech and weakness in her left arm and left leg. MEDICAL DECISION MAKING: Patient is an 84-year-old female who presents to the ER for left-sided weakness. Upon arrival stroke alert was called and she was seen in C10. He was eventually discovered by that patient does take a blood thinner and she took them last night. Patient was taken emergently to CAT scan and we obtained a Noncon arounds. Following this they had difficulty obtaining an IV and she was eventually taken back for CT angios. She was seen and evaluated by telestroke Dr. Montes. After complete evaluation the decision was made as there is no LVO to admit her here to the hospitalist. Discussed case with the hospitalist for further evaluation management treatment. Will allow for permissive hypertension. Patient and family were updated at bedside. Not a TNK candidate at this time. No LVO for intervention. Consults/Care Managements Discussions: Per MDM Triage Nursing notes reviewed. Limited review of prior medical records performed Vital Signs: reviewed and remarkable for no significant abnormalities Differential diagnosis: Differential Diagnosis includes but is not limited to ischemic Stroke, hemorrhagic stroke, bells palsy, mass, neoplasm, migraine headache, seizure, subarachnoid hemorrhage, TIA, and transient global amnesia. ER treatment provided: See below Diagnostics interpreted by me include EKG and cardiac monitoring as listed below: -Cardiac Monitoring: An order was placed for continuous cardiac monitoring. The monitor shows a rate of 70 with A-fib rhythm. -ECG: A-fib rate of 79 Normal axis No PVCs ST depressions in the inferior leads QTc 511 -Laboratory studies:Interpreted by me as stated above in MDM and shown below. 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 Procedures:none Critical Care: I have personally spent 35 minutes of critical care time in the direct management of this patient. This includes bedside care, interpretation of diagnostic studies, and testing, discussion with consultants, patient, and family members, and other required patient management activities. This 35 minutes is in excess of all separately billable procedures. Past Med/Surg History Problem List (Updated 12/19/24 @ 13:05 by Jeffrey Orta DO) Acute left-sided muscle weakness (Acute) Acute CVA (cerebrovascular accident) (Acute) Atrial fibrillation (Acute) Hypertension (Acute) Nausea (Acute) Right sided abdominal pain (Acute) Myofascial pain Lumbar spinal stenosis Lumbar facet joint syndrome Sacroiliitis Change in bowel habits Encounter for pre-operative examination Elevated troponin (Acute) COVID-19 (Acute) Chest pain Cholelithiasis without obstruction (Chronic) Coronary artery disease longstanding, known occluded OM per [place] [facility] records Pneumonia (Acute) pt denies any history of having pneumonia Abnormal EKG (Acute) RUQ abdominal pain (Acute) Chest pain (Acute 02/21/14) Atrial fibrillation follows with Dr. Stewart. will "come and go" and managed with medication. Medical History History of anesthesia reaction afib seems to flare with anesthesia. Nausea and vomiting after administration of anesthetic agent Degenerative disc disease Chronic back pain epidural pain management injection March 2023 at [facility] [place]. Kidney cysts x1 cyst on the left kidney - monitoring On anticoagulant therapy GERD (gastroesophageal reflux disease) Anxiety History of cardioversion 2014, [facility] w/Dr. Young Hypothyroidism History of COVID-19 February 17, 2022 and treated at [facility] inpatient for 3 days. symptoms: n/v, severe headache, and fever. pt was not intubated.>resolved. History of IBS reason for upcoming procedures: hx esophagitis, suspected IBS... alternating constipation and diarrhea ongoing off and on for past yr. Recent ED visit [facility]. Hx of diverticulitis of colon last flare up in 2010, no problems since. SIRS (systemic inflammatory response syndrome) s/p colonoscopy (2-3 hours post op at [facility]). patient states her temperature increased post op when she went home, then treated at [facility] in ICU and treated for SIRS in 2010. possibly related to a diverticulitis flare up. Hypertension Osteoarthritis Hyperlipidemia Surgical History Stented coronary artery History of cholecystectomy History of esophagogastroduodenoscopy (EGD) History of colonoscopy History of cataract surgery bilateral History of tonsillectomy Status post cardiac catheterization x3 -- early 1999's at [facility], "2008 occluded obtuse marginal" at [facility]. and also had one "sometime at [facility]" -- pt reports no stents placed. 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 Beliefs That Will Affect Care: Oriental Orthodox Current Living Situation: Alone current occupation: Retired Feels Safe at Home: Yes Assistive Devices: None and Glasses Allergies Allergies Allergy/AdvReac Type Severity Reaction Status Date / Time ciprofloxacin Allergy Intermediate ITCHING Verified 12/15/24 19:38 WITH IV MEDICATION levofloxacin Allergy Intermediate ITCHING Verified 12/15/24 19:38 WITH IV MEDICATION [id number] Reductase AdvReac Severe Muscle Pain Verified 12/15/24 19:38 Inhibitor Home Meds Home Medications Medication Instructions Recorded Confirmed levothyroxine 50 mcg tablet 50 mcg PO QAM #90 tabs 06/24/19 12/19/24 rivaroxaban 20 mg tablet (Xarelto) 20 mg PO QAM #90 tabs 06/24/19 12/19/24 acetaminophen 500 mg tablet 1,000 mg PO UD PRN Pain 02/18/22 12/19/24 (Tylenol Extra Strength) losartan 100 mg tablet 100 mg PO QAM 02/20/22 12/19/24 tramadol 50 mg tablet 50 mg PO QID PRN Back Pain 04/15/23 12/19/24 sotalol 120 mg tablet 120 mg PO BID 01/14/24 12/19/24 sertraline 25 mg tablet 25 mg PO DAILY 09/14/24 12/19/24 Active Charcoal 1 dose PO QAM 12/15/24 12/19/24 Bifidobacterium longum 10 million 1 cell PO QAM 12/15/24 12/19/24 cell capsule (Align (B.longum)) cholecalciferol (vitamin D3) 125 125 mcg PO DAILY 12/15/24 12/19/24 mcg (5,000 unit) tablet (Vitamin D3) hydralazine 50 mg tablet 50 mg PO BID 12/15/24 12/19/24 psyllium husk 3.4 gram/5.4 gram 1 tbsp PO DAILY 12/15/24 12/19/24 oral powder (Metamucil) trazodone 50 mg tablet 50 mg PO QPM PRN Sleep 12/15/24 12/19/24 meloxicam 15 mg tablet 15 mg PO BID 12/19/24 12/19/24 Previous Rx's Medication Instructions Recorded ezetimibe 10 mg tablet (Zetia) 10 mg PO DAILY #90 tabs 05/29/24 omeprazole magnesium 20 mg 20 mg PO DAILY 28 days #28 tabs 12/15/24 tablet,delayed release (Prilosec OTC) promethazine 25 mg tablet 25 mg PO Q6H PRN nausea and 12/15/24 vomiting #12 tabs Results & Data (ED) Vital Signs Vital Signs - 24 hr 12/19/24 10:10 12/19/24 10:58 12/19/24 11:20 Temperature 36.6 C Temperature Source Temporal Artery Scan Pulse Rate 69 Pulse Rate [Left Finger] 68 65 Respiratory Rate 20 20 16 Respiratory Effort / Characteristics Non-Labored Respiratory Depth Normal Blood Pressure 184/95 H Blood Pressure [Left Arm] 231/115 H 188/86 H Blood Pressure Mean 124 Blood Pressure Mean [Left Arm] 153 120 Blood Pressure Position [Left Arm] Sitting Pulse Oximetry 96 97 98 Oxygen Delivery Method Room Air Sepsis Recent Fever Within 48 Hours No Sepsis New/Unexplained Change in Mental Status Yes Sepsis Action Taken by Nursing No Action Required 12/19/24 11:48 12/19/24 12:54 Temperature Temperature Source Pulse Rate 72 Pulse Rate [Left Finger] 58 L Respiratory Rate 20 Respiratory Effort / Characteristics Respiratory Depth Blood Pressure Blood Pressure [Left Arm] 182/68 H Blood Pressure Mean Blood Pressure Mean [Left Arm] 106 Blood Pressure Position [Left Arm] Pulse Oximetry 98 Oxygen Delivery Method Sepsis Recent Fever Within 48 Hours Sepsis New/Unexplained Change in Mental Status Sepsis Action Taken by Nursing Laboratory Data 12/19/24 10:32 12/19/24 11:13 Lab Results 12/19/24 12/19/24 12/19/24 Range/Units 10:32 10:34 11:01 WBC 8.65 (4.8-10.8) K/ul RBC 4.65 (4.20-5.40) M/uL Hgb 14.3 (12.0-16.0) g/dl POC Hgb 14.6 (12.0-16.0) g/dl Hct 42.4 (37.0-47.0) % POC Hct 43 (37-47) % MCV 91.2 (80.0-100.0) fL MCH 30.8 (25.0-34.0) pg MCHC 33.7 (32.0-36.0) g/dL RDW Std Deviation 46.9 H (36.4-46.3) fL RDW Coeff of Laney 14.0 (11.5-14.5) % Plt Count 287 (130-400) K/uL MPV 12.0 (9.4-12.4) fL Immature Gran % (Auto) 0.5 % Neut % (Auto) 71.3 % Lymph % (Auto) 18.7 % Webster % (Auto) 8.2 % Eos % (Auto) 0.7 % Baso % (Auto) 0.6 % Neut # (Auto) 6.17 (1.40-6.50) K/uL Lymph # (Auto) 1.62 (1.20-3.40) K/uL Webster # (Auto) 0.71 H (0.11-0.59) K/uL Eos # (Auto) 0.06 (0.00-0.50) K/uL Baso # (Auto) 0.05 (0.00-0.20) K/uL Immature Gran # (Auto) 0.04 (0.01-0.20) K/uL RBC Morphology Unremarkable PT Cancelled INR Cancelled APTT Cancelled PTT Ratio Cancelled POC Sodium 138 (135-144) mmol/L Sodium 139 (136-145) mmol/L POC Potassium 6.0 H (3.3-5.0) mmol/L Potassium TNP POC Chloride 106 (101-112) mmol/L Chloride 106 (98-107) mmol/L Carbon Dioxide 26 (21-32) mmol/L POC Total CO2 26 (24-31) mmol/L Anion Gap 7 (3-11) POC Anion Gap 13.0 L (16-25) mmol/L POC BUN 8 (7-18) mg/dl BUN 8 (6-23) mg/dl Creatinine 0.78 (0.6-1.2) mg/dl POC Creatinine 0.8 (0.6-1.3) mg/dl Est Cr Clr Drug Dosing 53.8 ml/min eGFR 75.32 BUN/Creatinine Ratio 10.3 (10-20) Glucose 150 H (70-99(Fasting)) mg/dl POC Glucose (other) 151 H (70-99) mg/dl Calcium 9.3 (8.6-10.3) mg/dl POC Ioniz Calcium Nolvia 1.04 L (1.12-1.32) mmol/l Magnesium 1.9 (1.7-2.4) mg/dl Total Bilirubin 0.7 (0.2-1.0) mg/dl AST TNP ALT 7 (7-52) U/L Alkaline Phosphatase 82 (34-104) U/L Troponin I High Sens 8.3 (0-14) pg/ml Total Protein 7.0 (6.0-8.3) gm/dl Albumin 4.2 (3.4-5.0) gm/dl Globulin 2.8 (2.5-4.0) gm/dl Albumin/Globulin Ratio 1.5 (0.9-2) Blood Type A Positive Antibody Screen NEGATIVE 12/19/24 12/19/24 Range/Units 11:13 11:14 WBC (4.8-10.8) K/ul RBC (4.20-5.40) M/uL Hgb (12.0-16.0) g/dl POC Hgb (12.0-16.0) g/dl Hct (37.0-47.0) % POC Hct (37-47) % MCV (80.0-100.0) fL MCH (25.0-34.0) pg MCHC (32.0-36.0) g/dL RDW Std Deviation (36.4-46.3) fL RDW Coeff of Laney (11.5-14.5) % Plt Count (130-400) K/uL MPV (9.4-12.4) fL Immature Gran % (Auto) % Neut % (Auto) % Lymph % (Auto) % Webster % (Auto) % Eos % (Auto) % Baso % (Auto) % Neut # (Auto) (1.40-6.50) K/uL Lymph # (Auto) (1.20-3.40) K/uL Webster # (Auto) (0.11-0.59) K/uL Eos # (Auto) (0.00-0.50) K/uL Baso # (Auto) (0.00-0.20) K/uL Immature Gran # (Auto) (0.01-0.20) K/uL RBC Morphology PT 13.6 H INR 1.3 H APTT 34 H PTT Ratio 1.3 POC Sodium (135-144) mmol/L Sodium (136-145) mmol/L POC Potassium (3.3-5.0) mmol/L Potassium 3.3 L POC Chloride (101-112) mmol/L Chloride (98-107) mmol/L Carbon Dioxide (21-32) mmol/L POC Total CO2 (24-31) mmol/L Anion Gap (3-11) POC Anion Gap (16-25) mmol/L POC BUN (7-18) mg/dl BUN (6-23) mg/dl Creatinine (0.6-1.2) mg/dl POC Creatinine (0.6-1.3) mg/dl Est Cr Clr Drug Dosing ml/min eGFR BUN/Creatinine Ratio (10-20) Glucose (70-99(Fasting)) mg/dl POC Glucose (other) (70-99) mg/dl Calcium (8.6-10.3) mg/dl POC Ioniz Calcium Nolvia (1.12-1.32) mmol/l Magnesium (1.7-2.4) mg/dl Total Bilirubin (0.2-1.0) mg/dl AST 10 L ALT (7-52) U/L Alkaline Phosphatase (34-104) U/L Troponin I High Sens (0-14) pg/ml Total Protein (6.0-8.3) gm/dl Albumin (3.4-5.0) gm/dl Globulin (2.5-4.0) gm/dl Albumin/Globulin Ratio (0.9-2) Blood Type Antibody Screen Administered Medications Discontinued Medications Ioversol (Optiray 320 125ml) 118 ml IV ONCE ONE Stop: 12/19/24 10:29 Last Admin: 12/19/24 10:28 Dose: 118 ml Documented By: JUAN M Imaging Data Radiologist's Impression: Head CT 12/19/24 10:21 HISTORY: Eli Shah I am reading the stroke head CT on the talk to Dr. Jeffrey Orta TECHNIQUE: CT of the head without contrast. Images are presented in axial, sagittal, and coronal reformats. COMPARISON: Head CT dated 06/17/2024. FINDINGS: No evidence of intracranial hemorrhage, abnormal extra-axial fluid collection, mass effect, or midline shift.Ventricular caliber is appropriate. Fourth ventricle is midline. Basal cisterns are patent.Rush-white differentiation is maintained. Intracranial atherosclerotic vascular calcifications.Tony Murphy that stroke head CT on Ayah's graphic the noncontrast head CT is negative but Globes and orbits are unremarkable.Soft tissues about the skull base and scalp are unremarkable.Paranasal sinuses and mastoid air cells are clear. No calvarial fracture. IMPRESSION: * No acute intracranial findings. If there is clinical concern for acute stroke, brain MRI with diffusion weighted imaging would provide more sensitive evaluation. Findings were discussed with the ordering provider Dr. Jeffrey Orta at 10:50 AM on 12/19/2024. Electronically signed by Arik Starr 12-19-2024 10:54 AM Head CTA 12/19/24 10:21 HISTORY: Left-sided facial droop. TECHNIQUE: CT Angiography of the head was performed following uneventful administration of 118 mL of Optiray 320 IV contrast.. Images are presented in axial, sagittal, coronal reformats. Coronal and sagittal 3D MIP reconstructions are provided. COMPARISON: Unenhanced head CT from the same day. FINDINGS: Angiography: The intradural vertebral arteries are patent. The basilar artery is patent. The posterior cerebral arteries are patent. Mild atherosclerotic plaque of the distal internal carotid arteries. Both A1 segments are present and patent. 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 The anterior cerebral artery branches are patent. The right M1 and proximal M2 segment branches are patent. The left M1 and proximal M2 segment branches are patent. The more distal MCA branches appear symmetric. Soft tissues: No enhancing intracranial mass or vascular malformation. The superior sagittal sinus and transverse sinuses appear patent. The soft tissues about the skull base and scalp are unremarkable. Bones: Paranasal sinuses and mastoid air cells are well aerated. IMPRESSION: * No evidence of central vessel occlusion or focal hemodynamically significant stenosis. 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 * Mild atherosclerotic vascular disease. Electronically signed by Arik Starr 12-19-2024 11:12 AM Neck CTA 12/19/24 10:21 HISTORY: Left-sided facial droop. TECHNIQUE: CT Angiography of the neck was performed following uneventful administration of 118 mL of Optiray 320 IV contrast. Images are presented in axial, sagittal, coronal reformats. Coronal and sagittal 3D MIP reconstructions are provided. COMPARISON: CT of the head and CTA of the head from the same day. FINDINGS: Angiography: Mild atherosclerotic vascular disease of the aortic arch and arch vessels. Mild stenosis of the proximal left subclavian artery. Common carotid arteries are patent. Atherosclerotic plaque at the carotid bifurcations with less than 50% stenosis of the internal carotid arteries. The internal carotid arteries are tortuous. There is fusiform dilation of the distal left internal carotid artery with luminal irregularity measuring up to 0.7 cm in diameter on series 4 image 254. The cervical internal carotid arteries are patent at the skull base. The cervical vertebral arteries are patent and relatively codominant. Soft tissues: Unremarkable. Lung apices: Unremarkable. Bones: Degenerative changes of the spine. Incomplete fusion of the posterior arch of C1. IMPRESSION: 1. No evidence of cervical arterial occlusion. 2. Fusiform dilation of the distal left internal carotid artery measuring up to 0.7 cm in diameter on series 4 image 254. 3. Luminal irregularity of the distal left internal carotid artery, which could reflect sequelae of fibromuscular dysplasia or vasospasm. 4. Atherosclerotic plaque at the carotid bifurcations and involving the proximal internal carotid arteries with less than 50% stenosis. This could be correlated with carotid Doppler ultrasound. The findings from both the CTA of the head and neck were discussed with the ordering provider Dr. Jeffrey Orta at 11:15 AM on 12/19/2024. Electronically signed by Arik Starr 12-19-2024 11:18 AM Discharge Plan Visit Data Chief Complaint: TIA Symptoms Stated Complaint: SPEECH IMPAIRMENT, LEFT SIDE FACIAL NUMBNESS ED Provider: Jeffrey Orta Discharge Problem: Acute CVA (cerebrovascular accident), Acute left-sided muscle weakness Forms Stand Alone Forms: [facility] Rhythmia Medical Prescriptions Prescriptions: No Action sertraline 25 mg tablet 25 mg PO DAILY levothyroxine 50 mcg tablet 50 mcg PO QAM Qty: 90 Xarelto 20 mg tablet 20 mg PO QAM Qty: 90 ezetimibe [Zetia] 10 mg tablet 10 mg PO DAILY Qty: 90 3RF acetaminophen [Tylenol Extra Strength] 500 mg Tablet 1,000 mg PO UD PRN (Reason: Pain) losartan 100 mg tablet 100 mg PO QAM Patient Comments: if systolic below 135 do not take , have been taking it. tramadol 50 mg tablet 50 mg PO QID PRN (Reason: Back Pain) Rx Instructions: Doesn't want to take this medication too much. Active Charcoal 1 dose PO QAM trazodone 50 mg tablet 50 mg PO QPM PRN (Reason: Sleep) hydralazine 50 mg tablet 50 mg PO BID cholecalciferol (vitamin D3) [Vitamin D3] 125 mcg (5,000 unit) Tablet 125 mcg PO DAILY Metamucil 3.4 gram/5.4 gram Powder 1 tbsp PO DAILY Rx Instructions: mix into at least 8 oz of water or juice before administering Align (B.longum) 10 million cell Capsule 1 cell PO QAM promethazine 25 mg tablet 25 mg PO Q6H PRN (Reason: nausea and vomiting) Qty: 12 0RF omeprazole magnesium [Prilosec OTC] 20 mg tablet,delayed release (DR/EC) 20 mg PO DAILY 28 Days Qty: 28 2RF sotalol 120 mg tablet 120 mg PO BID meloxicam 15 mg tablet 15 mg PO BID Rx Instructions: filled 12/17 Referrals Referrals: Vickey Medina [Primary Care Provider] -
[2024-12-19] MEDS: OPTIRAY 320 125ml IV ONE (10:28)
[2024-12-19 10:46] LABS: iSTAT Creatinine 0.8 mg/dl (0.6-1.3); iSTAT Hemoglobin 14.6 g/dl (12.0-16.0); iSTAT Ionized Calcium 1.04 mmol/l (1.12-1.32)
--- NOTE | 2024-12-19 10:55 | CT Scan Report ---
HISTORY: Eli Shah I am reading the stroke head CT on the talk to Dr. Jeffrey Orta TECHNIQUE: CT of the head without contrast. Images are presented in axial, sagittal, and coronal reformats. COMPARISON: Head CT dated 06/17/2024. FINDINGS: No evidence of intracranial hemorrhage, abnormal extra-axial fluid collection, mass effect, or midline shift.Ventricular caliber is appropriate. Fourth ventricle is midline. Basal cisterns are patent.Rush-white differentiation is maintained. Intracranial atherosclerotic vascular calcifications.Tony Murphy that stroke head CT on Ayah's graphic the noncontrast head CT is negative but Globes and orbits are unremarkable.Soft tissues about the skull base and scalp are unremarkable.Paranasal sinuses and mastoid air cells are clear. No calvarial fracture. IMPRESSION: * No acute intracranial findings. If there is clinical concern for acute stroke, brain MRI with diffusion weighted imaging would provide more sensitive evaluation. Findings were discussed with the ordering provider Dr. Jeffrey Orta at 10:50 AM on 12/19/2024. Electronically signed by Arik Starr 12-19-2024 10:54 AM
[2024-12-19 11:00] LABS: Basophils # (auto) 0.05 K/uL (0.00-0.20); Basophils % (auto) 0.6 %; Eosinophils # (auto) 0.06 K/uL (0.00-0.50); Eosinophils % (auto) 0.7 %; Hematocrit (blood only) 42.4 % (37.0-47.0); Hemoglobin 14.3 g/dl (12.0-16.0); Immature Granulocytes # (auto) 0.04 K/uL (0.01-0.20); Immature Granulocytes % (auto) 0.5 %; Lymphocytes # (auto) 1.62 K/uL (1.20-3.40); Lymphocytes % (auto) 18.7 %; Mean Corpuscular Hemoglobin 30.8 pg (25.0-34.0); Mean Corpuscular Hgb Conc 33.7 g/dL (32.0-36.0); Mean Corpuscular Volume 91.2 fL (80.0-100.0); Monocytes # (auto) 0.71 K/uL (0.11-0.59); Monocytes % (auto) 8.2 %; Neutrophils # (auto) 6.17 K/uL (1.40-6.50); Neutrophils % (auto) 71.3 %; Platelet Count 287 K/uL (130-400); RBC Morphology Unremarkable; RDW Standard Deviation 46.9 fL (36.4-46.3); Red Blood Count 4.65 M/uL (4.20-5.40); White Blood Count 8.65 K/ul (4.8-10.8)
[2024-12-19 11:08] LABS: Alanine Aminotransferase 7 U/L (7-52); Albumin Globulin Ratio 1.5 (0.9-2); Albumin Level 4.2 gm/dl (3.4-5.0); Alkaline Phosphatase 82 U/L (34-104); Anion Gap 7 (3-11); BUN Creatinine Ratio 10.3 (10-20); Bilirubin,Total 0.7 mg/dl (0.2-1.0); Blood Urea Nitrogen 8 mg/dl (6-23); Calcium 9.3 mg/dl (8.6-10.3); Carbon Dioxide 26 mmol/L (21-32); Chloride 106 mmol/L (98-107); Creatinine Clr Calc Pharmacy 53.8 ml/min; Globulin 2.8 gm/dl (2.5-4.0); Glucose 150 mg/dl (70-99(Fasting)); Magnesium 1.9 mg/dl (1.7-2.4); Sodium 139 mmol/L (136-145)
[2024-12-19 11:11] LABS: Troponin I High Sensitivity 8.3 pg/ml (0-14)
--- NOTE | 2024-12-19 11:13 | CT Scan Report ---
HISTORY: Left-sided facial droop. TECHNIQUE: CT Angiography of the head was performed following uneventful administration of 118 mL of Optiray 320 IV contrast.. Images are presented in axial, sagittal, coronal reformats. Coronal and sagittal 3D MIP reconstructions are provided. COMPARISON: Unenhanced head CT from the same day. FINDINGS: Angiography: The intradural vertebral arteries are patent. The basilar artery is patent. The posterior cerebral arteries are patent. Mild atherosclerotic plaque of the distal internal carotid arteries. Both A1 segments are present and patent. 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 The anterior cerebral artery branches are patent. The right M1 and proximal M2 segment branches are patent. The left M1 and proximal M2 segment branches are patent. The more distal MCA branches appear symmetric. Soft tissues: No enhancing intracranial mass or vascular malformation. The superior sagittal sinus and transverse sinuses appear patent. The soft tissues about the skull base and scalp are unremarkable. Bones: Paranasal sinuses and mastoid air cells are well aerated. IMPRESSION: * No evidence of central vessel occlusion or focal hemodynamically significant stenosis. 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 * Mild atherosclerotic vascular disease. Electronically signed by Arik Starr 12-19-2024 11:12 AM
--- NOTE | 2024-12-19 11:18 | CT Scan Report ---
HISTORY: Left-sided facial droop. TECHNIQUE: CT Angiography of the neck was performed following uneventful administration of 118 mL of Optiray 320 IV contrast. Images are presented in axial, sagittal, coronal reformats. Coronal and sagittal 3D MIP reconstructions are provided. COMPARISON: CT of the head and CTA of the head from the same day. FINDINGS: Angiography: Mild atherosclerotic vascular disease of the aortic arch and arch vessels. Mild stenosis of the proximal left subclavian artery. Common carotid arteries are patent. Atherosclerotic plaque at the carotid bifurcations with less than 50% stenosis of the internal carotid arteries. The internal carotid arteries are tortuous. There is fusiform dilation of the distal left internal carotid artery with luminal irregularity measuring up to 0.7 cm in diameter on series 4 image 254. The cervical internal carotid arteries are patent at the skull base. The cervical vertebral arteries are patent and relatively codominant. Soft tissues: Unremarkable. Lung apices: Unremarkable. Bones: Degenerative changes of the spine. Incomplete fusion of the posterior arch of C1. IMPRESSION: 1. No evidence of cervical arterial occlusion. 2. Fusiform dilation of the distal left internal carotid artery measuring up to 0.7 cm in diameter on series 4 image 254. 3. Luminal irregularity of the distal left internal carotid artery, which could reflect sequelae of fibromuscular dysplasia or vasospasm. 4. Atherosclerotic plaque at the carotid bifurcations and involving the proximal internal carotid arteries with less than 50% stenosis. This could be correlated with carotid Doppler ultrasound. The findings from both the CTA of the head and neck were discussed with the ordering provider Dr. Jeffrey Orta at 11:15 AM on 12/19/2024. Electronically signed by Arik Starr 12-19-2024 11:18 AM
[2024-12-19 11:45] LABS: Potassium 3.3 mmol/L (3.5-5.1)
[2024-12-19 12:11] LABS: INR 1.3 (0.9-1.1); Partial Thromboplastin Ratio 1.3; Partial Thromboplastin Time 34 Seconds (21-31); Prothrombin Time 13.6 Seconds (9.0-12.0)
[2024-12-19] MEDS: LACTATED RINGER'S 1,000 ML IV SCH (13:12)
[2024-12-19] MEDS ORDERED: traMADol HCL 50 MG TABLET PO PRN (14:04)
[2024-12-19] MEDS ORDERED: traZODone HCL 50 MG TAB PO PRN (14:04)
--- NOTE | 2024-12-19 14:37 | History & Physical Report ---
Date of Service December 19, 2024 Assessment & Plan (1) Acute left-sided muscle weakness: (2) GERD (gastroesophageal reflux disease): (3) Anxiety: (4) History of cardioversion: (5) Hypertension: (6) Atrial fibrillation: (7) Coronary artery disease: Plan The patient is an 84-year-old female with a past medical history of HTN, AF, depression, hypothyroidism, HLD who presents to the ED on 12/19/24 with complaints of slurred speech and left facial and left hand numbness/tingling Dysarthria/left-sided numbness/tingling Rule out CVA head CT negative, head/neck CTA without significant stenosis Hold Xarelto, start aspirin daily, patient refused statin due to intolerance Check echo, consult neuro, permissive hypertension Slurred speech has resolved, still with some left facial and hand numbness/tingling Hx hypothyroidism: Continue Synthroid Hx HTN/AF/HLD: Hold hydralazine/losartan, continue sotalol/Zetia, hold Xarelto A total of 60 minutes was spent on chart review/reviewing diagnostic data/facilitating plan of care/discussion with consultants Full code DVT prophylaxis: SCDs, hold Xarelto until stroke ruled out Admission and Anticipated Discharge Date Admission Date: December 19, 2024 History of Present Illness Chief Complaint: slurred speech, left arm and hand numbness/tingling Primary Care Provider: Vickey Medina The patient is an 84-year-old female with a past medical history of HTN, AF on AC, CAD, GERD, depression who presents to the ED on 12/19/2024 with concern of possible strokelike symptoms. Patient reports developing some slurred speech last night around 9 PM. She reports going to sleep at this time. She woke up at 3 AM with some concerns of left facial numbness and left arm numbness/tingling. Reports some chronic left leg weakness. Denies any other neurodeficits. Denies any facial droop. Denies any recent respiratory illness. Denies nausea/vomiting/diarrhea/chest pain/shortness of breath. Stroke in the past. Reports compliance with taking blood thinner at home. On arrival to the ED, labs remarkable for INR 1.3, PTT 34, potassium 3.3, anion gap 13, glucose [address] was negative Head CTA showed: * No evidence of central vessel occlusion or focal hemodynamically significant stenosis. 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 * Mild atherosclerotic vascular disease. Neck CTA showed: 1. No evidence of cervical arterial occlusion. 2. Fusiform dilation of the distal left internal carotid artery measuring up to 0.7 cm in diameter on series 4 image 254. 3. Luminal irregularity of the distal left internal carotid artery, which could reflect sequelae of fibromuscular dysplasia or vasospasm. 4. Atherosclerotic plaque at the carotid bifurcations and involving the proximal internal carotid arteries with less than 50% stenosis. This could be correlated with carotid Doppler ultrasound. The patient will be admitted for stroke workup Allergies Allergy/AdvReac Type Severity Reaction Status Date / Time ciprofloxacin Allergy Intermediate ITCHING Verified 12/15/24 19:38 WITH IV MEDICATION levofloxacin Allergy Intermediate ITCHING Verified 12/15/24 19:38 WITH IV MEDICATION [id number]-GcA Reductase AdvReac Severe Muscle Pain Verified 12/15/24 19:38 Inhibitor Home Medications Medication Instructions Recorded Confirmed Type levothyroxine 50 mcg tablet 50 mcg PO QAM #90 tabs 06/24/19 12/19/24 History rivaroxaban 20 mg tablet (Xarelto) 20 mg PO QAM #90 tabs 06/24/19 12/19/24 History acetaminophen 500 mg tablet 1,000 mg PO UD PRN Pain 02/18/22 12/19/24 History (Tylenol Extra Strength) losartan 100 mg tablet 100 mg PO QAM 02/20/22 12/19/24 History tramadol 50 mg tablet 50 mg PO QID PRN Back Pain 04/15/23 12/19/24 History sotalol 120 mg tablet 120 mg PO BID 01/14/24 12/19/24 History ezetimibe 10 mg tablet (Zetia) 10 mg PO DAILY #90 tabs 05/29/24 12/19/24 Rx sertraline 25 mg tablet 25 mg PO DAILY 09/14/24 12/19/24 History Active Charcoal 1 dose PO QAM 12/15/24 12/19/24 History Bifidobacterium longum 10 million 1 cell PO QAM 12/15/24 12/19/24 History cell capsule (Align (B.longum)) cholecalciferol (vitamin D3) 125 125 mcg PO DAILY 12/15/24 12/19/24 History mcg (5,000 unit) tablet (Vitamin D3) hydralazine 50 mg tablet 50 mg PO BID 12/15/24 12/19/24 History omeprazole magnesium 20 mg 20 mg PO DAILY 28 days #28 tabs 12/15/24 12/19/24 Rx tablet,delayed release (Prilosec OTC) promethazine 25 mg tablet 25 mg PO Q6H PRN nausea and 12/15/24 12/19/24 Rx vomiting #12 tabs psyllium husk 3.4 gram/5.4 gram 1 tbsp PO DAILY 12/15/24 12/19/24 History oral powder (Metamucil) trazodone 50 mg tablet 50 mg PO QPM PRN Sleep 12/15/24 12/19/24 History meloxicam 15 mg tablet 15 mg PO BID 12/19/24 12/19/24 History Past Med/Surg History Problem List (Updated 12/19/24 @ 13:05 by Jeffrey Orta DO) Acute left-sided muscle weakness (Acute) Acute CVA (cerebrovascular accident) (Acute) Atrial fibrillation (Acute) Hypertension (Acute) Nausea (Acute) Right sided abdominal pain (Acute) Myofascial pain Lumbar spinal stenosis Lumbar facet joint syndrome Sacroiliitis Change in bowel habits Encounter for pre-operative examination Elevated troponin (Acute) COVID-19 (Acute) Chest pain Cholelithiasis without obstruction (Chronic) Coronary artery disease longstanding, known occluded OM per [place] [facility] records Pneumonia (Acute) pt denies any history of having pneumonia Abnormal EKG (Acute) RUQ abdominal pain (Acute) Chest pain (Acute 02/21/14) Atrial fibrillation follows with Dr. Stewart. will "come and go" and managed with medication. Medical History History of anesthesia reaction afib seems to flare with anesthesia. Nausea and vomiting after administration of anesthetic agent Degenerative disc disease Chronic back pain epidural pain management [facility] Kidney cysts x1 cyst on the left kidney - monitoring On anticoagulant therapy GERD (gastroesophageal reflux disease) Anxiety History of cardioversion 2014, [facility] w/Dr. Young Hypothyroidism History of COVID-19 February 17, 2022 and treated at [facility] inpatient for 3 days. symptoms: n/v, severe headache, and fever. pt was not intubated.>resolved. History of IBS reason for upcoming procedures: hx esophagitis, suspected IBS... alternating constipation and diarrhea ongoing off and on for past yr. Recent ED visit [facility]. Hx of diverticulitis of colon last flare up in 2010, no problems since. SIRS (systemic inflammatory response syndrome) s/p colonoscopy (2-3 hours post op at [facility]). patient states her temperature increased post op when she went home, then treated at [facility] in ICU and treated for SIRS in 2010. possibly related to a diverticulitis flare up. Hypertension Osteoarthritis Hyperlipidemia Surgical History Stented coronary artery History of cholecystectomy History of esophagogastroduodenoscopy (EGD) History of colonoscopy History of cataract surgery bilateral History of tonsillectomy Status post cardiac catheterization x3 -- early 1999's at [facility], "2008 occluded obtuse marginal" at [facility]. and also had one "sometime at [facility]" -- pt reports no stents placed. Family History Other No family history of adverse response to anesthesia Social History Smoking Status: Never smoker Second Hand Exposure: No; Do You Dip or Chew Tobacco: No; Tobacco Cessation Education Requested by Patient: No Hx Alcohol Use: No Hx Substance Use: No Preferred Language: Khmer Communication Ability: Effective Hearing Ability: Hard of Hearing Hr Specialist Required: No Beliefs That Will Affect Care: None Current Living Situation: Spouse current occupation: Retired Other Information That Helps Us Care for You: No Feels Safe at Home: Yes Safety Concerns: Feels Safe At This Time Assistive Devices: None Review of Systems Review of Systems: All systems reviewed & are unremarkable except as noted in HPI & below Physical Exam Constitutional: WD/WN, vitals as above Eyes: PERRL, conjunctivae normal, anicteric sclerae ENMT: external ear and nose normal, oropharynx normal Neck: trachea midline, no thyromegaly Respiratory: normal respiratory effort, lungs clear to auscultation Cardiovascular: RRR, no murmur, no edema Gastrointestinal (Abdomen): normal bowel sounds, soft, nontender, no hepatosplenomegaly Musculoskeletal: no cyanosis or clubbing, extremities motor strength 5/5 Skin: no rashes, warm and dry Neurologic: PERRL, EOMI, accommodation nl, no face palsy, no dysarthria ( left face tingling/numbness, left hand tingling/numbness, chronic left leg) Psychiatric: A+Ox3, euthymic affect Lymphatic: no cervical or axillary lymphadenopathy Results & Data Results & Data Vital Signs (Past 12 Hours) Vital Signs Temp Pulse Pulse Resp BP BP Pulse Ox 12/19/24 12:54 58 L 20 182/68 H 98 12/19/24 11:48 72 12/19/24 11:20 65 16 188/86 H 98 12/19/24 10:58 68 20 231/115 H 97 12/19/24 10:10 36.6 C 69 20 184/95 H 96 O2 Del Method 12/19/24 12:54 12/19/24 11:48 12/19/24 11:20 12/19/24 10:58 12/19/24 10:10 Room Air Diagnostic Findings Laboratory Results WBC 8.65 K/ul (4.8-10.8) 12/19/24 10:32 RBC 4.65 M/uL (4.20-5.40) 12/19/24 10:32 Hgb 14.3 g/dl (12.0-16.0) 12/19/24 10:32 POC Hgb 14.6 g/dl (12.0-16.0) 12/19/24 10:34 Hct 42.4 % (37.0-47.0) 12/19/24 10:32 POC Hct 43 % (37-47) 12/19/24 10:34 MCV 91.2 fL (80.0-100.0) 12/19/24 10:32 MCH 30.8 pg (25.0-34.0) 12/19/24 10:32 MCHC 33.7 g/dL (32.0-36.0) 12/19/24 10:32 RDW Std Deviation 46.9 fL (36.4-46.3) H 12/19/24 10:32 RDW Coeff of Laney 14.0 % (11.5-14.5) 12/19/24 10:32 Plt Count 287 K/uL (130-400) 12/19/24 10:32 MPV 12.0 fL (9.4-12.4) 12/19/24 10:32 Immature Gran % (Auto) 0.5 % 12/19/24 10:32 Neut % (Auto) 71.3 % 12/19/24 10:32 Lymph % (Auto) 18.7 % 12/19/24 10:32 Sargent % (Auto) 8.2 % 12/19/24 10:32 Eos % (Auto) 0.7 % 12/19/24 10:32 Baso % (Auto) 0.6 % 12/19/24 10:32 Neut # (Auto) 6.17 K/uL (1.40-6.50) 12/19/24 10:32 Lymph # (Auto) 1.62 K/uL (1.20-3.40) 12/19/24 10:32 Sargent # (Auto) 0.71 K/uL (0.11-0.59) H 12/19/24 10:32 Eos # (Auto) 0.06 K/uL (0.00-0.50) 12/19/24 10:32 Baso # (Auto) 0.05 K/uL (0.00-0.20) 12/19/24 10:32 Immature Gran # (Auto) 0.04 K/uL (0.01-0.20) 12/19/24 10:32 RBC Morphology Unremarkable 12/19/24 10:32 PT 13.6 Seconds (9.0-12.0) H 12/19/24 11:14 INR 1.3 (0.9-1.1) H 12/19/24 11:14 APTT 34 Seconds (21-31) H 12/19/24 11:14 PTT Ratio 1.3 12/19/24 11:14 POC Sodium 138 mmol/L (135-144) 12/19/24 10:34 Sodium 139 mmol/L (136-145) 12/19/24 10:32 POC Potassium 6.0 mmol/L (3.3-5.0) H 12/19/24 10:34 Potassium 3.3 mmol/L (3.5-5.1) L 12/19/24 11:13 POC Chloride 106 mmol/L (101-112) 12/19/24 10:34 Chloride 106 mmol/L (98-107) 12/19/24 10:32 Carbon Dioxide 26 mmol/L (21-32) 12/19/24 10:32 POC Total CO2 26 mmol/L (24-31) 12/19/24 10:34 Anion Gap 7 (3-11) 12/19/24 10:32 POC Anion Gap 13.0 mmol/L (16-25) L 12/19/24 10:34 POC BUN 8 mg/dl (7-18) 12/19/24 10:34 BUN 8 mg/dl (6-23) 12/19/24 10:32 Creatinine 0.78 mg/dl (0.6-1.2) 12/19/24 10:32 POC Creatinine 0.8 mg/dl (0.6-1.3) 12/19/24 10:34 Est Cr Clr Drug Dosing 53.8 ml/min 12/19/24 10:32 eGFR 75.32 12/19/24 10:32 BUN/Creatinine Ratio 10.3 (10-20) 12/19/24 10:32 Glucose 150 mg/dl (70-99(Fasting)) H 12/19/24 10:32 POC Glucose (other) 151 mg/dl (70-99) H 12/19/24 10:34 Calcium 9.3 mg/dl (8.6-10.3) 12/19/24 10:32 POC Ioniz Calcium Nolvia 1.04 mmol/l (1.12-1.32) L 12/19/24 10:34 Magnesium 1.9 mg/dl (1.7-2.4) 12/19/24 10:32 Total Bilirubin 0.7 mg/dl (0.2-1.0) 12/19/24 10:32 AST 10 U/L (13-39) L 12/19/24 11:13 ALT 7 U/L (7-52) 12/19/24 10:32 Alkaline Phosphatase 82 U/L (34-104) 12/19/24 10:32 Troponin I High Sens 8.3 pg/ml (0-14) 12/19/24 10:32 Total Protein 7.0 gm/dl (6.0-8.3) 12/19/24 10:32 Albumin 4.2 gm/dl (3.4-5.0) 12/19/24 10:32 Globulin 2.8 gm/dl (2.5-4.0) 12/19/24 10:32 Albumin/Globulin Ratio 1.5 (0.9-2) 12/19/24 10:32 Blood Type A Positive 12/19/24 11:01 Antibody Screen NEGATIVE 12/19/24 11:[address] 12/19/24 10:21 HISTORY: Eli Shah I am reading the stroke head CT on the talk to Dr. Jeffrey Orta TECHNIQUE: CT of the head without contrast. Images are presented in axial, sagittal, and coronal reformats. COMPARISON: Head CT dated 06/17/2024. FINDINGS: No evidence of intracranial hemorrhage, abnormal extra-axial fluid collection, mass effect, or midline shift.Ventricular caliber is appropriate. Fourth ventricle is midline. Basal cisterns are patent.Rush-white differentiation is maintained. Intracranial atherosclerotic vascular calcifications.Tony Murphy that stroke head CT on Ayah's graphic the noncontrast head CT is negative but Globes and orbits are unremarkable.Soft tissues about the skull base and scalp are unremarkable.Paranasal sinuses and mastoid air cells are clear. No calvarial fracture. IMPRESSION: * No acute intracranial findings. If there is clinical concern for acute stroke, brain MRI with diffusion weighted imaging would provide more sensitive evaluation. Findings were discussed with the ordering provider Dr. Jeffrey Orta at 10:50 AM on 12/19/2024. Electronically signed by Arik Starr 12-19-2024 10:54 AM Head CTA 12/19/24 10:21 HISTORY: Left-sided facial droop. TECHNIQUE: CT Angiography of the head was performed following uneventful administration of 118 mL of Optiray 320 IV contrast.. Images are presented in axial, sagittal, coronal reformats. Coronal and sagittal 3D MIP reconstructions are provided. COMPARISON: Unenhanced head CT from the same day. FINDINGS: Angiography: The intradural vertebral arteries are patent. The basilar artery is patent. The posterior cerebral arteries are patent. Mild atherosclerotic plaque of the distal internal carotid arteries. Both A1 segments are present and patent. 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 The anterior cerebral artery branches are patent. The right M1 and proximal M2 segment branches are patent. The left M1 and proximal M2 segment branches are patent. The more distal MCA branches appear symmetric. Soft tissues: No enhancing intracranial mass or vascular malformation. The superior sagittal sinus and transverse sinuses appear patent. The soft tissues about the skull base and scalp are unremarkable. Bones: Paranasal sinuses and mastoid air cells are well aerated. IMPRESSION: * No evidence of central vessel occlusion or focal hemodynamically significant stenosis. 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 * Mild atherosclerotic vascular disease. Electronically signed by Arik Starr 12-19-2024 11:12 AM Neck CTA 12/19/24 10:21 HISTORY: Left-sided facial droop. TECHNIQUE: CT Angiography of the neck was performed following uneventful administration of 118 mL of Optiray 320 IV contrast. Images are presented in axial, sagittal, coronal reformats. Coronal and sagittal 3D MIP reconstructions are provided. COMPARISON: CT of the head and CTA of the head from the same day. FINDINGS: Angiography: Mild atherosclerotic vascular disease of the aortic arch and arch vessels. Mild stenosis of the proximal left subclavian artery. Common carotid arteries are patent. Atherosclerotic plaque at the carotid bifurcations with less than 50% stenosis of the internal carotid arteries. The internal carotid arteries are tortuous. There is fusiform dilation of the distal left internal carotid artery with luminal irregularity measuring up to 0.7 cm in diameter on series 4 image 254. The cervical internal carotid arteries are patent at the skull base. The cervical vertebral arteries are patent and relatively codominant. Soft tissues: Unremarkable. Lung apices: Unremarkable. Bones: Degenerative changes of the spine. Incomplete fusion of the posterior arch of C1. IMPRESSION: 1. No evidence of cervical arterial occlusion. 2. Fusiform dilation of the distal left internal carotid artery measuring up to 0.7 cm in diameter on series 4 image 254. 3. Luminal irregularity of the distal left internal carotid artery, which could reflect sequelae of fibromuscular dysplasia or vasospasm. 4. Atherosclerotic plaque at the carotid bifurcations and involving the proximal internal carotid arteries with less than 50% stenosis. This could be correlated with carotid Doppler ultrasound. The findings from both the CTA of the head and neck were discussed with the ordering provider Dr. Jfefrey Orta at 11:15 AM on 12/19/2024. Electronically signed by Arik Starr 12-19-2024 11:18 AM Supervising Physician Co-Signing Physician Notes Patient seen and examined at bedside. Patient deficits have mostly resolved at time of evaluations. Daughter and present, have concerns over patients overall health. State that she has constant diarrhea and constipation, chronic pain throughout body, and cries every morning. Also has headaches every morning and frequent stomach pain despite being on PPI. She states she has been having issues with palpitatins and her atrial fibrillation at home. They have concerns regarding her ability to thrive at home. Of note, she states her left hand tingling is chronic and has been going on for months. Headaches likely secondary to uncontrolled labile hypertension. On exam, no focal deficits identified. No word finding difficutlies or issues with comprehension, no sensation or strength deficits. Irregular rhythm, regular rate. Patient likely had TIA given imaging unremarkable for acute infarct. Other differential includes complex migraine, seizure (less likely given not consistent with history), hyperactive delirium. Treat with stroke workup, neurology consult in AM, patient cannot take statins due to side effects, aspirin 81 mg. Permissive hypertension in inpatient setting, will order DVT prophylaxis. In addition, due to complex IBS symptoms and failure to thrive, family and patient requesting workup of worsening IBS symptoms. Will add on malabsorption workup given persistent diarrhea, GI consult could be considered inpatient given persistent stomach pain despite treatment with PPI, and overall effect of IBS on quality of life. I have seen and discussed the case with the collaborating advanced practitioner. I agree with the above H&P. I have reviewed and confirmed the patients medical history, the findings on physical examination, and the patients diagnosis and treatment plan with Phil Paiz NP and agree with the information documented. I spent a total of 30 minutes coordinating, documenting, and providing care for this patient excluding time spent in the performance of separately billed services. All of the aforementioned completed outside of collaborating with the assigned advanced practitioner for a full treatment plan. I have reviewed the advanced practitioner's documentation, and I agree with, and take responsibility for the plan of care (6) Atrial fibrillation Atrial fibrillation type: paroxysmal Qualified Code(s): I48.0 - Paroxysmal atrial fibrillation
[2024-12-19] MEDS ORDERED: PHARMACIST DISCHARGE MED REC CONSULT PRN (15:12)
[2024-12-19] MEDS: ASPIRIN CHEW 324 MG PO STA (15:51)
--- NOTE | 2024-12-19 16:08 | Magnetic Resonance Report ---
EXAM: MR brain wo con CLINICAL HISTORY: R/o cva. TECHNIQUE: MRI of the brain was performed without contrast with multiplanar sequences obtained. COMPARISON: 06/17/2024. FINDINGS: Brain Parenchyma: Age-related brain atrophic changes with periventricular chronic microvascular ischemic changes. No evidence of acute infarction or hemorrhage. Normal reza-white matter differentiation. No mass lesions or focal cortical abnormalities identified. Ventricles and Sulci: Enlarged in size with preserved configuration of the lateral ventricles, third ventricle, and fourth ventricle. No evidence of hydrocephalus. Sylvian fissures, sulci, and cisterns are dilated. Posterior Fossa: Cerebellum and brainstem appear normal without evidence of mass lesions or signal abnormalities. Cranial Nerves: Normal course and appearance of cranial nerves identified. Vessels: No evidence of vascular malformations or aneurysms. Intracranial arteries and veins appear normal without evidence of stenosis or occlusion. Orbits and Skull Base: Orbits and skull base structures are normal without evidence of abnormalities. IMPRESSION: - Age-related brain atrophic changes evident by dilated ventricles and extra-axial CSF spaces. - Chronic microvascular ischemic changes. - No acute infarction or hemorrhage. - No interval changes. The report was ready at 02:57 PM [facility], 12/19/2024 and the call was completed at at 03:04 PM [facility], 12/19/[address] Fransisco Botello, was informed regarding the Negative stroke results. Electronically signed by French Osorio 12-19-2024 4:07 PM
[2024-12-19] MEDS: SOTALOL HCL 80 MG TAB PO SCH (20:27)
[2024-12-19] MEDS ORDERED: POLYETHYLENE (MIRALAX) 17 GM PACK PO PRN (20:44)
[2024-12-19 21:26] LABS: Thyroid Stimulating Hormone 2.766 uIu/ml (0.300-4.500)
[2024-12-19 21:31] LABS: Ferritin 18.7 ng/ml (8-388)
[2024-12-19 22:40] LABS: Folate (Folic Acid),Ser orPlas 17.47 ng/ml (>5.38)
[2024-12-20] MEDS: ACETAMINOPHEN 325 MG TAB PO PRN (05:46)
[2024-12-20] MEDS: LEVOTHYROXINE SODIUM 50 MCG TABLET PO SCH (05:47)
[2024-12-20 07:55] LABS: Basophils # (auto) 0.04 K/uL (0.00-0.20); Basophils % (auto) 0.8 %; Eosinophils # (auto) 0.06 K/uL (0.00-0.50); Eosinophils % (auto) 1.2 %; Hematocrit (blood only) 33.8 % (37.0-47.0); Hemoglobin 11.5 g/dl (12.0-16.0); Immature Granulocytes # (auto) 0.01 K/uL (0.01-0.20); Immature Granulocytes % (auto) 0.2 %; Lymphocytes # (auto) 1.56 K/uL (1.20-3.40); Lymphocytes % (auto) 31.8 %; Mean Corpuscular Hemoglobin 31.6 pg (25.0-34.0); Mean Corpuscular Volume 92.9 fL (80.0-100.0); Mean Platelet Volume 12.5 fL (9.4-12.4); Monocytes # (auto) 0.58 K/uL (0.11-0.59); Monocytes % (auto) 11.8 %; Neutrophils # (auto) 2.65 K/uL (1.40-6.50); Neutrophils % (auto) 54.2 %; Platelet Count 211 K/uL (130-400); RDW Coefficient of Variation 13.7 % (11.5-14.5); RDW Standard Deviation 47.2 fL (36.4-46.3); Red Blood Count 3.64 M/uL (4.20-5.40)
[2024-12-20 08:19] LABS: BUN Creatinine Ratio 12.3 (10-20); Calcium 8.1 mg/dl (8.6-10.3); Potassium 3.1 mmol/L (3.5-5.1)
[2024-12-20 08:33] LABS: Estimated Average Glucose 126 mg/dl
[2024-12-20] MEDS: ASPIRIN 81 MG ECTAB PO SCH (09:16)
[2024-12-20] MEDS: CHOLECALCIFEROL 125 MCG (5,000 UNITS) TAB PO SCH (09:16)
[2024-12-20] MEDS: PANTOprazole 40 MG TAB PO SCH (09:16)
[2024-12-20] MEDS: EZETIMIBE 10 MG TAB PO SCH (09:16)
[2024-12-20] MEDS: SERTRALINE HCL 50 MG TABLET PO SCH (09:17)
[2024-12-20] MEDS: RIVAROXABAN 20 MG TAB PO SCH (09:26)
--- NOTE | 2024-12-20 10:13 | Hospitalist Progress Note ---
Date of Service December 20, 2024 Assessment & Plan (1) Acute left-sided muscle weakness: (2) GERD (gastroesophageal reflux disease): (3) Anxiety: (4) History of cardioversion: (5) Hypertension: (6) Atrial fibrillation: (7) Coronary artery disease: Plan 84-year-old female with a past medical history of HTN, AF, depression, hypothyroidism, HLD who presents to the ED on 12/19/24 with complaints of slurred speech and left facial and left hand numbness/tingling Dysarthria/left-sided numbness/tingling Transient Ischemic Attack Head CT negative, head/neck CTA without significant stenosis MRI brain did not show acute infarct or hemorrhage but noted age related atrophic changes Discussed with Neurologist who recommends stopping ASA 81mg and 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 She reported she had called her Cardiology office over the week and was told to make appt or come to the ER if symptomatic. She is requesting Cardiology eval inpatient Cardiology consulted. Will follow up recommendations Hypokalemia Replete and monitor Check Mag level Prediabetes HbA1c is 6 Education provided Hypothyroidism: Continue Synthroid Full code DVT prophylaxis: Lula I spent a total of 50 minutes coordinating, documenting and providing care for this patient excluding time spent in performance of separately billed services Admission and Anticipated Discharge Date Admission Date: December 19, 2024 Subjective Patient seen and examined Reported some slurred speech/word finding difficulty saturday night that lasted for about a minute Reports chronic left leg weakness, unchanged Reports chronic IBS usually associated with nausea, occasional abd pain/diar edmond/constipation Reports symptomatic Afib with palpitations especially when HR is above 80s Currently denies any new symptoms Physical Exam Constitutional: + well hydrated; no acute distress Eyes: PERRL, conjunctivae normal, anicteric sclerae ENMT: external ear and nose normal, oropharynx normal Respiratory: normal respiratory effort, lungs clear to auscultation Cardiovascular: Rate/Rhythm: + irregularly irregular Gastrointestinal (Abdomen): normal bowel sounds, soft, nontender, no hepatosplenomegaly Musculoskeletal: No pedal edema Neurologic: PERRL, EOMI, accommodation nl, no face palsy, no dysarthria Power is equal across knee/ankle as well as in UE Psychiatric: A+Ox3, euthymic affect Results & Data Results & Data Vital Signs (Past 12 Hours) Vital Signs Temp Pulse Pulse Resp BP Pulse Ox O2 Del Method 12/20/24 08:00 36.8 C 67 18 173/77 H 96 Room Air 12/20/24 07:48 63 12/20/24 04:32 36.6 C 57 L 16 127/68 96 Room Air 12/20/24 00:23 36.9 C 66 16 118/53 L 95 Room Air Laboratory Results Abnormal lab results 12/19/24 12/19/24 12/19/24 Range/Units 10:32 10:34 11:13 RBC (4.20-5.40) M/uL Hgb (12.0-16.0) g/dl Hct (37.0-47.0) % RDW Std Deviation 46.9 H (36.4-46.3) fL MPV (9.4-12.4) fL [place] # (Auto) 0.71 H (0.11-0.59) K/uL PT (9.0-12.0) Seconds INR (0.9-1.1) APTT (21-31) Seconds POC Potassium 6.0 H (3.3-5.0) mmol/L Potassium 3.3 L (3.5-5.1) mmol/L Chloride (98-107) mmol/L POC Anion Gap 13.0 L (16-25) mmol/L Glucose 150 H (70-99(Fasting)) mg/dl POC Glucose (other) 151 H (70-99) mg/dl Hemoglobin A1c (4.5-5.6) % Calcium (8.6-10.3) mg/dl POC Ioniz Calcium [place] 1.04 L (1.12-1.32) mmol/l AST 10 L (13-39) U/L Triglycerides (0-150) mg/dl VLDL Cholesterol, Calc (0-30) mg/dl 12/19/24 12/20/24 Range/Units 11:14 07:20 RBC 3.64 L (4.20-5.40) M/uL Hgb 11.5 L (12.0-16.0) g/dl Hct 33.8 L (37.0-47.0) % RDW Std Deviation 47.2 H (36.4-46.3) fL MPV 12.5 H (9.4-12.4) fL [place] # (Auto) (0.11-0.59) K/uL PT 13.6 H (9.0-12.0) Seconds INR 1.3 H (0.9-1.1) APTT 34 H (21-31) Seconds POC Potassium (3.3-5.0) mmol/L Potassium 3.1 L (3.5-5.1) mmol/L Chloride 108 H (98-107) mmol/L POC Anion Gap (16-25) mmol/L Glucose 112 H (70-99(Fasting)) mg/dl POC Glucose (other) (70-99) mg/dl Hemoglobin A1c 6.0 H (4.5-5.6) % Calcium 8.1 L (8.6-10.3) mg/dl POC Ioniz Calcium [place] (1.12-1.32) mmol/l AST (13-39) U/L Triglycerides 161 H (0-150) mg/dl VLDL Cholesterol, Calc 32 H (0-30) mg/dl (6) Atrial fibrillation Atrial fibrillation type: paroxysmal Qualified Code(s): I48.0 - Paroxysmal atrial fibrillation
[2024-12-20] MEDS: LOSARTAN POTASSIUM 50 MG TAB PO ONE (10:20)
--- NOTE | 2024-12-20 10:26 | Neurology Consultation ---
Date of Consultation December 20, 2024 Assessment & Plan (1) Transient ischemic attack (TIA): Plan TIA A 84 yo F w possible TIA in the setting of known Afib on Xarelto. MRI brain Negative. Symptoms resolved. Recommend to continue anticoagulation. Agree with switching Xarelto to ELiquis. Outpatient follow up w Neurology. History of Present Illness Reason for Consultation: Transient dysarthria , numbness Requesting Physician: Charity Bonilla MD Attending Physician: Charity Bonilla MD History of Present Illness An 84-year-old female with a past medical history of HTN, AF on Xarelto, CAD, GERD, depression who presents to the ED on 12/19/2024 with transient slurred speech on 12/18/24 around 9 PM. She reports going to sleep at this time. She woke up at 3 AM with some concerns of left facial numbness and left arm numbness/tingling. Reports some chronic left leg weakness. Symptoms have since resolved. Denies any facial droop. Denies any recent respiratory illness. Denies nausea/vomiting/diarrhea/chest pain/shortness of breath. Stroke in the past. Reports compliance with taking blood thinner at home. Allergies Allergy/AdvReac Type Severity Reaction Status Date / Time ciprofloxacin Allergy Intermediate ITCHING Verified 12/15/24 19:38 WITH IV MEDICATION levofloxacin Allergy Intermediate ITCHING Verified 12/15/24 19:38 WITH IV MEDICATION Tadumkg-GXG-AoY Reductase AdvReac Severe Muscle Pain Verified 12/15/24 19:38 Inhibitor Home Medications Medication Instructions Recorded Confirmed Type levothyroxine 50 mcg tablet 50 mcg PO QAM #90 tabs 06/24/19 12/19/24 History rivaroxaban 20 mg tablet (Xarelto) 20 mg PO QAM #90 tabs 06/24/19 12/19/24 History acetaminophen 500 mg tablet 1,000 mg PO UD PRN Pain 02/18/22 12/19/24 History (Tylenol Extra Strength) losartan 100 mg tablet 100 mg PO QAM 02/20/22 12/19/24 History tramadol 50 mg tablet 50 mg PO QID PRN Back Pain 04/15/23 12/19/24 History sotalol 120 mg tablet 120 mg PO BID 01/14/24 12/19/24 History ezetimibe 10 mg tablet (Zetia) 10 mg PO DAILY #90 tabs 05/29/24 12/19/24 Rx sertraline 25 mg tablet 25 mg PO DAILY 09/14/24 12/19/24 History Active Charcoal 1 dose PO QAM 12/15/24 12/19/24 History Bifidobacterium longum 10 million 1 cell PO QAM 12/15/24 12/19/24 History cell capsule (Align (B.longum)) cholecalciferol (vitamin D3) 125 125 mcg PO DAILY 12/15/24 12/19/24 History mcg (5,000 unit) tablet (Vitamin D3) hydralazine 50 mg tablet 50 mg PO BID 12/15/24 12/19/24 History omeprazole magnesium 20 mg 20 mg PO DAILY 28 days #28 tabs 12/15/24 12/19/24 Rx tablet,delayed release (Prilosec OTC) promethazine 25 mg tablet 25 mg PO Q6H PRN nausea and 12/15/24 12/19/24 Rx vomiting #12 tabs psyllium husk 3.4 gram/5.4 gram 1 tbsp PO DAILY 12/15/24 12/19/24 History oral powder (Metamucil) trazodone 50 mg tablet 50 mg PO QPM PRN Sleep 12/15/24 12/19/24 History meloxicam 15 mg tablet 15 mg PO BID 12/19/24 12/19/24 History Patient History Medical History History of anesthesia reaction afib seems to flare with anesthesia. Nausea and vomiting after administration of anesthetic agent Degenerative disc disease Chronic back pain [facility] Kidney cysts x1 cyst on the left kidney - monitoring On anticoagulant therapy GERD (gastroesophageal reflux disease) Anxiety History of cardioversion 2014, [facility] w/Dr. Young Hypothyroidism History of COVID-19 February 17, 2022 and treated at [facility] inpatient for 3 days. symptoms: n/v, severe headache, and fever. pt was not intubated.>resolved. History of IBS reason for upcoming procedures: hx esophagitis, suspected IBS... alternating constipation and diarrhea ongoing off and on for past yr. Recent ED visit [facility]. Hx of diverticulitis of colon last flare up in 2010, no problems since. SIRS (systemic inflammatory response syndrome) s/p colonoscopy (2-3 hours post op at [facility]). patient states her temperature increased post op when she went home, then treated at [facility] in ICU and treated for SIRS in 2010. possibly related to a diverticulitis flare up. Hypertension Osteoarthritis Hyperlipidemia Surgical History Stented coronary artery History of cholecystectomy History of esophagogastroduodenoscopy (EGD) History of colonoscopy History of cataract surgery bilateral History of tonsillectomy Status post cardiac catheterization x3 -- early 1999's at [facility], "2008 occluded obtuse marginal" at [facility]. and also had one "sometime at [facility]" -- pt reports no stents placed. Family History Other No family history of adverse response to anesthesia Social History Smoking Status: Never smoker Second Hand Exposure: No; Do You Dip or Chew Tobacco: No; Tobacco Cessation Education Requested by Patient: No Hx Alcohol Use: No Hx Substance Use: No Preferred Language: Bengali Communication Ability: Effective Hearing Ability: Hard of Hearing Director Instrumentation Required: No Beliefs That Will Affect Care: None Current Living Situation: Spouse current occupation: Retired Other Information That Helps Us Care for You: No Feels Safe at Home: Yes Safety Concerns: Feels Safe At This Time Assistive Devices: None Physical Exam Physical Exam: EXAM: Constitutional: appearance normally developed Face: normocephalic and atraumatic Eyes: normal lids, normal conjunctiva Neck: supple Respiratory: normal effort Abdomen: non distended Skin: no rashes, lesions, or ulcers noted Psychiatric: normal mood and normal affect NEUROLOGIC EXAMINATION: Appearance: no acute distress Orientation: awake, alert and oriented x 3 Mental Status: alert Attention: normal Knowledge: appropriate Language: no aphasia Speech: no dysarthria Cranial Nerves: CN 2 - no visual defect on confrontation and pupils round, equal CN 3, 4, 6 - extra-ocular movements intact CN 5 - facial sensation intact CN 7 - no facial asymmetry CN 8 - intact hearing CN 9, 10 - palate symmetric CN 11 - good shoulder shrug CN 12 - tongue midline Gait: deferred Coordination: no ataxia with finger to nose testing Sensory: intact and symmetric to light touch SEVERITY SCORES: National [place] of Health Stroke Scale: 1A. LOC: 0 1B. Question: 0 1C. Commands: 0 2. Gaze: 0 3. Visual [place]: 0 4. Facial Palsy: 0 5A. Arm Left: 0 5B. Arm Right: 0 6A. Leg Left: 0 6B. Leg Right: 0 7. Ataxia: 0 8. Sensory: 0 9. Aphasia: 0 10. Dysarthria: 0 11. Extinction: 0 Total: 0 Results & Data Vital Signs (Past 12 Hours) Vital Signs Temp Pulse Pulse Resp BP Pulse Ox O2 Del Method 12/20/24 08:00 36.8 C 67 18 173/77 H 96 Room Air 12/20/24 07:48 63 12/20/24 04:32 36.6 C 57 L 16 127/68 96 Room Air 12/20/24 00:23 36.9 C 66 16 118/53 L 95 Room Air Diagnostic Findings MRI brain reviewed. No acute stroke or acute intracranial abnormality.
[2024-12-20 10:59] LABS: Magnesium 1.7 mg/dl (1.7-2.4)
[2024-12-20] MEDS: POTASSIUM CHLORIDE CRTAB 20 MEQ TABCR PO STA (11:36)
--- NOTE | 2024-12-20 11:44 | Cardiology Consultation ---
Date of Consultation December 20, 2024 Assessment & Plan (1) Transient ischemic attack (TIA): -Fortunately, her symptoms have resolved. -Question if this represents a Xarelto failure. -Could consider a change to Eliquis from Xarelto. -Dr. Stewart to assume her care tomorrow. (2) PAF (paroxysmal atrial fibrillation): -Ventricular spots adequately controlled. -As above, consider change to Eliquis. -Patient would like to discuss a cardioversion with Dr. Stewart. (3) Coronary artery disease: -s/p RPDA RADHA, January 2024. -Subtotal occlusion of D2, January 2024 -Quiescent on current medical regimen. History of Present Illness Attending Physician: Charity Bonilla MD History of Present Illness Mrs. Brar is an 84-year-old female admitted yesterday with neurologic symptoms. This consultation was ordered to assist in her cardiac management. Of note, the patient typically follows with Dr. Stewart in the outpatient setting. The patient was in her usual state of health until the evening prior to presentation. At approximately 9 PM, she noted some slurring of her speech. She was able to sleep, however, woke up at 3 AM on the day of presentation with left facial and left upper extremity paresthesias. She presented to the emergency room for evaluation. On arrival here, the patient's symptoms persisted. CT scan of the head failed to show an acute CVA. She eventually had an MRI of the brain which showed no evidence of infarction or occlusion. There were ischemic changes seen within the microvasculature. This was unchanged from a study performed in June 2024. Her symptoms have since resolved. Her only complaint today is that of palpitations. She is noted to be in rate controlled atrial fibrillation. We have discussed the possibility of a Xarelto failure resulting in her TIA symptoms. She does carry history of coronary artery disease having undergone gone a PCI of the right PDA in January 2024. She has been asymptomatic since that time. Currently, patient is resting comfortably in bed without complaints. Past medical and surgical history 1. Coronary artery disease 2. Right PDA DESApril 2023 3. Subtotal I2Wfupk 2023 4. Hypertension 5. Hypercholesterolemia 6. Paroxysmal atrial fibrillation 7. Cerebrovascular disease 8. GERD 9. Hypothyroidism 10. Irritable bowel syndrome 11. Diverticulosis 12. DJD 13. Cholecystectomy 14. Intraocular lens implants 15. Tonsillectomy Social history and lives with her and [place] Retired RN from [employer] No tobacco or alcohol Family history Noncontributory Review of systems A 10 point review of system was undertaken and negative except for that described above. Allergies Allergy/AdvReac Type Severity Reaction Status Date / Time ciprofloxacin Allergy Intermediate ITCHING Verified 12/15/24 19:38 WITH IV MEDICATION levofloxacin Allergy Intermediate ITCHING Verified 12/15/24 19:38 WITH IV MEDICATION Czzljtr-QHT-[id number] Reductase AdvReac Severe Muscle Pain Verified 12/15/24 19:38 Inhibitor Home Medications Medication Instructions Recorded Confirmed Type levothyroxine 50 mcg tablet 50 mcg PO QAM #90 tabs 06/24/19 12/19/24 History rivaroxaban 20 mg tablet (Xarelto) 20 mg PO QAM #90 tabs 06/24/19 12/19/24 History acetaminophen 500 mg tablet 1,000 mg PO UD PRN Pain 02/18/22 12/19/24 History (Tylenol Extra Strength) losartan 100 mg tablet 100 mg PO QAM 02/20/22 12/19/24 History tramadol 50 mg tablet 50 mg PO QID PRN Back Pain 04/15/23 12/19/24 History sotalol 120 mg tablet 120 mg PO BID 01/14/24 12/19/24 History ezetimibe 10 mg tablet (Zetia) 10 mg PO DAILY #90 tabs 05/29/24 12/19/24 Rx sertraline 25 mg tablet 25 mg PO DAILY 09/14/24 12/19/24 History Active Charcoal 1 dose PO QAM 12/15/24 12/19/24 History Bifidobacterium longum 10 million 1 cell PO QAM 12/15/24 12/19/24 History cell capsule (Align (B.longum)) cholecalciferol (vitamin D3) 125 125 mcg PO DAILY 12/15/24 12/19/24 History mcg (5,000 unit) tablet (Vitamin D3) hydralazine 50 mg tablet 50 mg PO BID 12/15/24 12/19/24 History omeprazole magnesium 20 mg 20 mg PO DAILY 28 days #28 tabs 12/15/24 12/19/24 Rx tablet,delayed release (Prilosec OTC) promethazine 25 mg tablet 25 mg PO Q6H PRN nausea and 12/15/24 12/19/24 Rx vomiting #12 tabs psyllium husk 3.4 gram/5.4 gram 1 tbsp PO DAILY 12/15/24 12/19/24 History oral powder (Metamucil) trazodone 50 mg tablet 50 mg PO QPM PRN Sleep 12/15/24 12/19/24 History meloxicam 15 mg tablet 15 mg PO BID 12/19/24 12/19/24 History Patient History Medical History History of anesthesia reaction afib seems to flare with anesthesia. Nausea and vomiting after administration of anesthetic agent Degenerative disc disease Chronic back pain [place]ural pain management [place] [facility] [place] Kidney cysts x1 cyst on the left kidney - monitoring On anticoagulant therapy GERD (gastroesophageal reflux disease) Anxiety History of cardioversion 2014, [facility] w/Dr. Young Hypothyroidism History of COVID-February 17, 2022 and treated at [facility] inpatient for 3 days. symptoms: n/v, severe headache, and fever. pt was not intubated.>resolved. History of IBS reason for upcoming procedures: hx esophagitis, suspected IBS... alternating constipation and diarrhea ongoing off and on for past yr. Recent ED visit [facility]. Hx of diverticulitis of colon last flare up in 2010, no problems since. SIRS (systemic inflammatory response syndrome) s/p colonoscopy (2-3 hours post op at [facility]). patient states her temperature increased post op when she went home, then treated at [facility] in ICU and treated for SIRS in 2010. possibly related to a diverticulitis flare up. Hypertension Osteoarthritis Hyperlipidemia Surgical History Stented coronary artery History of cholecystectomy History of esophagogastroduodenoscopy (EGD) History of colonoscopy History of cataract surgery bilateral History of tonsillectomy Status post cardiac catheterization x3 -- early 1999's at [facility], "2008 occluded obtuse marginal" at [facility]. and also had one "sometime at [facility]" -- pt reports no stents placed. 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 HEENT exam is negative. Neck reveals normal carotid upstrokes without bruits. Jugular venous pressure is flat at 90. There is no thyromegaly. Card iovascular exam reveals an irregularly irregular rhythm with distant heart sounds. No obvious murmurs. Lungs are clear without rales, rhonchi, or wheezes. Abdomen is soft without bruits. Extremities reveal intact radial artery and posterior tibial pulses bilaterally. There is no peripheral edema. Results & Data Vital Signs (Past 12 Hours) Vital Signs Temp Pulse Pulse Resp BP Pulse Ox O2 Del Method 12/20/24 11:30 36.8 C 68 20 178/84 H 97 Room Air 12/20/24 08:00 36.8 C 67 18 173/77 H 96 Room Air 12/20/24 07:48 63 12/20/24 04:32 36.6 C 57 L 16 127/68 96 Room Air 12/20/24 00:23 36.9 C 66 16 118/53 L 95 Room Air Laboratory Results CBC notes hemoglobin of 11.5, hematocrit 33.8, white count 4.9, and platelet count of 211,000. Electrolytes noted sodium of 141, potassium 3.1, chloride 108, bicarb 27, BUN 8, creatinine 0.65, glucose of 112. High-sensitivity troponin normal at 8.3. TSH normal at 2.76. Diagnostic Findings EKG notes atrial fibrillation with a ventricular sponsor 58 bpm. Echocardiogram notes normal left ventricular systolic function with an ejection fraction of 55 to 60%. There is mild LVH along with aortic valve sclerosis. Mild to moderate mitral regurgitation. Negative agitated saline study. PG Care Time/CCT Total # of Minutes Spent Total Time Spent with Patient: Total time spent is greater than 50% in coordination of care (as documented) at patient's floor/unit and/or counseling patient: Coding Level of Care Code 96711 INT INP/OBS CARE MIN Diagnoses Transient ischemic attack (TIA) G45.9 PAF (paroxysmal atrial fibrillation) I48.0 Coronary artery disease I25.10
--- NOTE | 2024-12-20 11:57 | Electrocardiogram Report ---
Test Reason : Blood Pressure : */* mmHG Vent. Rate : 79 BPM Atrial Rate : * BPM P-R Int : * ms QRS Dur : 90 ms QT Int : 446 ms P-R-T Axes : * 27 -77 degrees QTcB Int : 511 ms Atrial fibrillation Prolonged QT Abnormal ECG When compared with ECG of 15-Dec-2024 18:37, QT has lengthened Confirmed by Bill Lazar ([id number]) on 12/20/2024 11:56:42 AM Referred By: Confirmed By: Bill Lazar
--- NOTE | 2024-12-20 12:14 | Electrocardiogram Report ---
Test Reason : Blood Pressure : */* mmHG Vent. Rate : 58 BPM Atrial Rate : * BPM P-R Int : * ms QRS Dur : 94 ms QT Int : 482 ms P-R-T Axes : * 20 -82 degrees QTcB Int : 473 ms Atrial fibrillation with slow ventricular response Abnormal ECG When compared with ECG of 19-Dec-2024 10:18, (unconfirmed) T wave inversion more evident in Lateral leads Confirmed by Bill Lazar ([id number]) on 12/20/2024 12:14:12 PM Referred By: REFERRED SELF Confirmed By: Bill Lazar
[2024-12-20] MEDS ORDERED: RIVAROXABAN 20 MG TAB PO SCH (16:30)
[2024-12-21 06:31] LABS: Hematocrit (blood only) 33.9 % (37.0-47.0); Hemoglobin 11.3 g/dl (12.0-16.0); Mean Corpuscular Hgb Conc 33.3 g/dL (32.0-36.0); Mean Corpuscular Volume 92.9 fL (80.0-100.0); Mean Platelet Volume 12.2 fL (9.4-12.4); Platelet Count 204 K/uL (130-400); RDW Coefficient of Variation 13.6 % (11.5-14.5); Red Blood Count 3.65 M/uL (4.20-5.40); White Blood Count 5.95 K/ul (4.8-10.8)
[2024-12-21 07:15] LABS: BUN Creatinine Ratio 9.3 (10-20); Calcium 8.2 mg/dl (8.6-10.3); Creatinine Clr Calc Pharmacy 53.7 ml/min; Magnesium 1.7 mg/dl (1.7-2.4); Phosphorus 3.8 mg/dl (2.5-4.9); Potassium 3.5 mmol/L (3.5-5.1)
[2024-12-21] MEDS: APIXABAN 5 MG TABLET PO SCH (08:47)
[2024-12-21] MEDS: LOSARTAN POTASSIUM 50 MG TAB PO SCH (08:47)
[2024-12-21] MEDS: hydrALAZINE TAB 50 MG TAB PO SCH (08:55)
--- NOTE | 2024-12-21 10:06 | Pharmacy Report ---
- Date of Service December 21, 2024 - Pharmacy CVA/TIA Medication Review Medications to Prevent Stroke handout has been added to the patients discharge packet. Antiplatelet(s) * Antiplatelet therapy deferred; anticoagulation Cholesterol * High intensity statin deferred due to history of intolerance DVT Prophylaxis * SCD thigh Therapeutic Anticoagulation * Hx Afib/Aflutter noted, and patient is currently receiving Eliquis (changed from xarelto) Type 2 Diabetes * Patient does not have T2DM
--- NOTE | 2024-12-21 10:28 | Hospitalist Progress Note ---
Date of Service December 21, 2024 Assessment & Plan (1) Acute left-sided muscle weakness: (2) GERD (gastroesophageal reflux disease): (3) Anxiety: (4) History of cardioversion: (5) Hypertension: (6) Atrial fibrillation: (7) Coronary artery disease: Plan 84-year-old female with a past medical history of HTN, AF, depression, hypothyroidism, HLD who presents to the ED on 12/19/24 with complaints of slurred speech and left facial and left hand numbness/tingling Dysarthria/left-sided numbness/tingling Transient Ischemic Attack Head CT negative, head/neck CTA without significant stenosis MRI brain did not show acute infarct or hemorrhage but noted age related atrophic changes Neurologist recommended stopping ASA 81mg and changing MACHINE ROOM OPERATOR xarelto to eliquis Patient reported statin intolerance Continue zetia TTE noted EF 55-60%, mild conc LVH, mild to mod MR, mod dil LA, intact interatrial septum BP elevated Resumed home losartan and hydralazine at MACHINE ROOM OPERATOR doses PT/OT eval noted Atrial Fibrillation Continue sotalol, eliquis Patient reports significant palpitation for her Afib once HR is above 80s. She reported she had called her Cardiology office over the week and was told to make appt or come to the ER if symptomatic. Cardiology eval noted. Courier Driver yesterday noted Dr Stewart will assume care today and discuss cardioversion with patient. Will follow up plan today Hypokalemia K was 3.1 yesterday, 3.5 today Will give some repletion today and monitor Prediabetes HbA1c is 6 Education provided Hypothyroidism: Continue Synthroid Full code DVT prophylaxis: Eliquis Updated and daughter at bedside I spent a total of 50 minutes coordinating, documenting and providing care for this patient excluding time spent in performance of separately billed services Admission and Anticipated Discharge Date Admission Date: December 19, 2024 Subjective Patient seen and examined Reported some headache and nausea earlier but headache has resolved Denied vomiting, abd pain Denied cough, SOB, chest pain Physical Exam Constitutional: + well hydrated; no acute distress Eyes: PERRL, conjunctivae normal, anicteric sclerae ENMT: external ear and nose normal, oropharynx normal Respiratory: normal respiratory effort, lungs clear to auscultation Cardiovascular: Rate/Rhythm: + irregularly irregular Gastrointestinal (Abdomen): normal bowel sounds, soft, nontender, no hepatosplenomegaly Musculoskeletal: No pedal edema Neurologic: PERRL, EOMI, accommodation nl, no face palsy, no dysarthria Psychiatric: A+Ox3, euthymic affect Results & Data Results & Data Vital Signs (Past 12 Hours) Vital Signs Temp Pulse Pulse Resp BP Pulse Ox O2 Del Method 12/21/24 09:39 Room Air 12/21/24 07:22 59 L 12/21/24 07:00 36.6 C 68 18 172/90 H 98 Room Air 12/21/24 04:45 150/72 H 12/21/24 04:12 36.8 C 66 16 171/93 H 96 Room Air 12/20/24 23:46 36.8 C 68 16 146/67 H 96 Room Air Laboratory Results Abnormal lab results 12/21/24 Range/Units 05:58 RBC 3.65 L (4.20-5.40) M/uL Hgb 11.3 L (12.0-16.0) g/dl Hct 33.9 L (37.0-47.0) % RDW Std Deviation 47.0 H (36.4-46.3) fL Chloride 109 H (98-107) mmol/L BUN/Creatinine Ratio 9.3 L (10-20) Glucose 129 H (70-99(Fasting)) mg/dl Calcium 8.2 L (8.6-10.3) mg/dl (6) Atrial fibrillation Atrial fibrillation type: paroxysmal Qualified Code(s): I48.0 - Paroxysmal atrial fibrillation
[2024-12-21 10:44] VITALS: TEMP 98.2; O2SAT 96
[2024-12-21] MEDS: POTASSIUM CHLORIDE CRTAB 20 MEQ TABCR PO STA (12:44)
--- NOTE | 2024-12-21 13:27 | Cardiology Progress Note ---
Date of Service December 21, 2024 Assessment & Plan (1) Transient ischemic attack (TIA): Plan: CT scan and MRI did not demonstrate any acute infarct or hemorrhage. Some concern about a transient event that could be related to thromboembolus. Xarelto switched to Eliquis. (2) PAF (paroxysmal atrial fibrillation): Plan: She has adequate rate control and has been switched to Eliquis for anticoagulation. This is probably better in her demographic as there is less incidence of bleeding. She requested a cardioversion as she feels poorly when she is in atrial fibrillation. I cautioned her against a cardioversion given the presumed "failure" of Xarelto. I suggested waiting 21 days prior to cardioversion. Alternatively, JERMAN and cardioversion could be considered. She prefers Dr. Stewart perform the procedure himself and I will notify him of her request. (3) Coronary artery disease: Plan: -s/p RPDA RADHA, January 2024. -Subtotal occlusion of D2, January 2024 -Quiescent on current medical regimen. Admission and Anticipated Discharge Date Admission Date: December 19, 2024 Subjective This afternoon the patient continued to have symptoms of palpitations, "heart pounding" and generally feeling unwell. According to her daughter was also present she has some generalized aches and pains and weakness. Review of Systems Review of Systems: Per HPI Physical Exam Physical Exam: She is alert and oriented x3. Mood affect appear normal. She answered all questions appropriately. HEENT: Sclerae are anicteric. Pupils are equal and reactive to light and accommodation. Extraocular movements were intact. Neuro: Cranial nerves intact Lungs: Lungs are clear to auscultation bilaterally. There are no rales wheezes or rhonchi. She has normal respiratory effort without use of accessory muscles. There is normal pulmonary excursion. Cardiac: The rhythm was irregular. S1 and S2 were normal. There are no murmurs on examination. The PMI was not markedly displaced on palpation. Extremities: Patient has bilateral radial pulses that are equal in intensity. There is no evidence cyanosis or clubbing. There was no evidence of significant peripheral edema bilaterally. Skin: There are no rashes noted on examination today. Results & Data Vital Signs (Past 12 Hours) Vital Signs Temp Pulse Pulse Resp BP Pulse Ox O2 Del Method 12/21/24 10:43 36.8 C 70 20 137/78 96 Room Air 12/21/24 09:39 Room Air 12/21/24 07:22 59 L 12/21/24 07:00 36.6 C 68 18 172/90 H 98 Room Air 12/21/24 04:45 150/72 H 12/21/24 04:12 36.8 C 66 16 171/93 H 96 Room Air Laboratory Results Abnormal Lab Results 12/21/24 05:58 WBC 5.95 RBC 3.65 L Hgb 11.3 L Hct 33.9 L MCV 92.9 MCH 31.0 MCHC 33.3 RDW Std Deviation 47.0 H RDW Coeff of [place]y 13.6 Plt Count 204 MPV 12.2 Sodium 140 Potassium 3.5 Chloride 109 H Carbon Dioxide 28 Anion Gap 3 BUN 7 Creatinine 0.75 Est Cr Clr Drug Dosing 53.7 eGFR 78.95 BUN/Creatinine Ratio 9.3 L Glucose 129 H Calcium 8.2 L Phosphorus 3.8 Magnesium 1.7 PG Care Time/CCT Total # of Minutes Spent Total Time Spent with Patient: Total time spent is greater than 50% in coordination of care (as documented) at patient's floor/unit and/or counseling patient: Coding Level of Care Code 42129 SUB INP/OBS CARE 2/35MIN Diagnoses Transient ischemic attack (TIA) G45.9 PAF (paroxysmal atrial fibrillation) I48.0 Coronary artery disease I25.10
--- NOTE | 2024-12-21 14:42 | Electrocardiogram Report ---
Test Reason : Blood Pressure : */* mmHG Vent. Rate : 64 BPM Atrial Rate : * BPM P-R Int : * ms QRS Dur : 92 ms QT Int : 464 ms P-R-T Axes : * 17 -77 degrees QTcB Int : 478 ms Atrial fibrillation Nonspecific ST abnormality Abnormal ECG When compared with ECG of 20-Dec-2024 06:37, No significant change was found Confirmed by Hong Manzano ([id number]) on 12/21/2024 2:42:01 PM Referred By: REFERRED SELF Confirmed By: Hong Manzano
[2024-12-21 15:17] VITALS: BP 131/62; PULSE 78; RESP 16
--- NOTE | 2024-12-21 15:41 | Discharge Summary ---
Date of Service December 21, 2024 Admission HPI Per Admitting Provider The patient is an 84-year-old female with a past medical history of HTN, AF on AC, CAD, GERD, depression who presents to the ED on 12/19/2024 with concern of possible strokelike symptoms. Patient reports developing some slurred speech last night around 9 PM. She reports going to sleep at this time. She woke up at 3 AM with some concerns of left facial numbness and left arm numbness/tingling. Reports some chronic left leg weakness. Denies any other neurodeficits. Denies any facial droop. Denies any recent respiratory illness. Denies nausea/vomiting/diarrhea/chest pain/shortness of breath. Stroke in the past. Reports compliance with taking blood thinner at home. On arrival to the ED, labs remarkable for INR 1.3, PTT 34, potassium 3.3, anion gap 13, glucose [address] was negative Head CTA showed: * No evidence of central vessel occlusion or focal hemodynamically significant stenosis. 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 * Mild atherosclerotic vascular disease. Neck CTA showed: 1. No evidence of cervical arterial occlusion. 2. Fusiform dilation of the distal left internal carotid artery measuring up to 0.7 cm in diameter on series 4 image 254. 3. Luminal irregularity of the distal left internal carotid artery, which could reflect sequelae of fibromuscular dysplasia or vasospasm. 4. Atherosclerotic plaque at the carotid bifurcations and involving the proximal internal carotid arteries with less than 50% stenosis. This could be correlated with carotid Doppler ultrasound. The patient will be admitted for stroke workup Admission Exam Per Admitting Provider Eyes: PERRL, conjunctivae normal, anicteric sclerae ENMT: external ear and nose normal, oropharynx normal Neck: trachea midline, no thyromegaly Respiratory: normal respiratory effort, lungs clear to auscultation Cardiovascular: RRR, no murmur, no edema Gastrointestinal (Abdomen): normal bowel sounds, soft, nontender, no hepatosplenomegaly Musculoskeletal: no cyanosis or clubbing, extremities motor strength 5/5 Skin: no rashes, warm and dry Neurologic: PERRL, EOMI, accommodation nl, no face palsy, no dysarthria ( left face tingling/numbness, left hand tingling/numbness, chronic left leg) Psychiatric: A+Ox3, euthymic affect Lymphatic: no cervical or axillary lymphadenopathy Principal Diagnosis Transient ischemic attack Discharge Exam Constitutional + well hydrated; no acute distress Eyes PERRL, conjunctivae normal, anicteric sclerae ENMT external ear and nose normal, oropharynx normal Respiratory normal respiratory effort, lungs clear to auscultation Cardiovascular Rate/Rhythm: + irregularly irregular Gastrointestinal (Abdomen) normal bowel sounds, soft, nontender, no hepatosplenomegaly Musculoskeletal No pedal edema Neurologic PERRL, EOMI, accommodation nl, no face palsy, no dysarthria Psychiatric A+Ox3, euthymic affect Discharge Data Allergies Allergy/AdvReac Type Severity Reaction Status Date / Time ciprofloxacin Allergy Intermediate ITCHING Verified 12/15/24 19:38 WITH IV MEDICATION levofloxacin Allergy Intermediate ITCHING Verified 12/15/24 19:38 WITH IV MEDICATION [id number] Reductase AdvReac Severe Muscle Pain Verified 12/15/24 19:38 Inhibitor Consultations 12/19/24 11:32 ED Decision to Admit Stat 12/19/24 14:04 Consult Neurology Routine 12/20/24 09:51 Consult Cardiology Routine Ordered Studies 12/19/24 10:21 CT angio head w con Stat CT angio neck with con Stat CT head/brain wo con Stat 12/19/24 14:04 MR brain wo con Routine Hospital Course (1) Acute left-sided muscle weakness: (2) GERD (gastroesophageal reflux disease): (3) Anxiety: (4) History of cardioversion: (5) Hypertension: (6) Atrial fibrillation: (7) Coronary artery disease: Plan 84-year-old female with a past medical history of HTN, AF, depression, hypothyroidism, HLD who presents to the ED on 12/19/24 with complaints of slurred speech and left facial and left hand numbness/tingling Dysarthria/left-sided numbness/tingling Transient Ischemic Attack Head CT negative, head/neck CTA without significant stenosis MRI brain did not show acute infarct or hemorrhage but noted age related atrophic changes Symptoms all resolved Neurologist recommended changing INFECTION CONTROL NURSE xarelto to eliquis Patient reported statin intolerance Continue zetia TTE noted EF 55-60%, mild conc LVH, mild to mod MR, mod dil LA, intact interatrial septum Continue home losartan and hydralazine at INFECTION CONTROL NURSE doses Atrial Fibrillation Continue sotalol, eliquis Patient reports significant palpitation for her Afib once HR is above 80s. Mineral Wool Insulation Supervisor evaluated and recommended outpatient follow up for possible cardioversion after about 3 weeks of eliquis Prediabetes HbA1c is 6 Education provided Total Time Total Time Spent Total Time Spent (In Minutes): 45 Total Time Includes: Examination of the Patient, Discharge Planning, Medication Reconciliation, Communication With Other Providers and Other Discharge Plan Discharge Items Patient Disposition: Home - Self-Care Reason For Visit: Slurred speech Discharge Diagnosis: Transient ischemic attack Atrial fibrillation Activity: Resume your previous activity Non-emergency contact: Primary Care Provider and Mineral Wool Insulation Supervisor Call non-emergency contact if: you have any medication questions Follow-up/Referrals: Vickey Medina [Primary Care Provider] - 12/29/24 2:00 pm Diet: Heart Healthy Addtl Attending Provider Instructions: Mrs Brar You were hospitalized and managed for Transient Ischemic Attack. Your blood thinner was changed from Xarelto to eliquis. Please ensure follow up with your Mineral Wool Insulation Supervisor for evaluation for possible cardioversion. It was a pleasure taking care of you Pending Studies at Discharge: No Stand-Alone Forms: My [facility] [employer] Insurance, Smoking Cessation Medications and DC Order Prescriptions: New Eliquis 5 mg Tablet 5 mg PO BID Qty: 60 0RF Continued sertraline 25 mg tablet 25 mg PO DAILY levothyroxine 50 mcg tablet 50 mcg PO QAM Qty: 90 ezetimibe [Zetia] 10 mg tablet 10 mg PO DAILY Qty: 90 3RF acetaminophen [Tylenol Extra Strength] 500 mg Tablet 1,000 mg PO UD PRN (Reason: Pain) losartan 100 mg tablet 100 mg PO QAM Patient Comments: if systolic below 135 do not take , have been taking it. tramadol 50 mg tablet 50 mg PO QID PRN (Reason: Back Pain) Rx Instructions: Doesn't want to take this medication too much. Active Charcoal 1 dose PO QAM trazodone 50 mg tablet 50 mg PO QPM PRN (Reason: Sleep) hydralazine 50 mg tablet 50 mg PO BID cholecalciferol (vitamin D3) [Vitamin D3] 125 mcg (5,000 unit) Tablet 125 mcg PO DAILY Metamucil 3.4 gram/5.4 gram Powder 1 tbsp PO DAILY Rx Instructions: mix into at least 8 oz of water or juice before administering Align (B.longum) 10 million cell Capsule 1 cell PO QAM promethazine 25 mg tablet 25 mg PO Q6H PRN (Reason: nausea and vomiting) Qty: 12 0RF omeprazole magnesium [Prilosec OTC] 20 mg tablet,delayed release (DR/EC) 20 mg PO DAILY 28 Days Qty: 28 2RF sotalol 120 mg tablet 120 mg PO BID Discontinued Xarelto 20 mg tablet 20 mg PO QAM Qty: 90 meloxicam 15 mg tablet 15 mg PO BID Rx Instructions: filled 12/17 Discharge Orders: Discharge Order (Routine); Ordered 12/21/24 Ordered By: Charity Bonilla Admission Data Admit Date/Time: 12/19/24 12:49 Attending Provider: Charity Bonilla I. Admit Provider: Bryan Botello Primary Care Provider: Vickey Medina Other Providers: Bryan Botello; Adrian Norman; Bill Lazar
[2024-12-21] MEDS: STROKE PATIENT DISCHARGE STA (16:50)
--- NOTE | 2024-12-23 09:33 | Pharmacy Report ---
Pharmacist Stroke Counseling - Date of Service December 23, 2024 - Scope: Pharmacy has been consulted to provide medication discharge counseling for this patient admitted with transient ischemic attack as per the Pharmacist Discharge Counseling for Stroke Patients Protocol. - Medications on Discharge: Home Medications Medication Instructions Recorded Confirmed levothyroxine 50 mcg tablet 50 mcg PO QAM #90 tabs 06/24/19 12/19/24 acetaminophen 500 mg tablet 1,000 mg PO UD PRN Pain 02/18/22 12/19/24 (Tylenol Extra Strength) losartan 100 mg tablet 100 mg PO QAM 02/20/22 12/19/24 tramadol 50 mg tablet 50 mg PO QID PRN Back Pain 04/15/23 12/19/24 sotalol 120 mg tablet 120 mg PO BID 01/14/24 12/19/24 sertraline 25 mg tablet 25 mg PO DAILY 09/14/24 12/19/24 Active Charcoal 1 dose PO QAM 12/15/24 12/19/24 Bifidobacterium longum 10 million 1 cell PO QAM 12/15/24 12/19/24 cell capsule (Align (B.longum)) cholecalciferol (vitamin D3) 125 125 mcg PO DAILY 12/15/24 12/19/24 mcg (5,000 unit) tablet (Vitamin D3) hydralazine 50 mg tablet 50 mg PO BID 12/15/24 12/19/24 psyllium husk 3.4 gram/5.4 gram 1 tbsp PO DAILY 12/15/24 12/19/24 oral powder (Metamucil) trazodone 50 mg tablet 50 mg PO QPM PRN Sleep 12/15/24 12/19/24 New Rx's Medication Instructions Recorded ezetimibe 10 mg tablet (Zetia) 10 mg PO DAILY #90 tabs 05/29/24 omeprazole magnesium 20 mg 20 mg PO DAILY 28 days #28 tabs 12/15/24 tablet,delayed release (Prilosec OTC) promethazine 25 mg tablet 25 mg PO Q6H PRN nausea and 12/15/24 vomiting #12 tabs apixaban 5 mg tablet (Eliquis) 5 mg PO BID #60 tabs 12/21/24 - Action: The above medications, specifically ones for stroke treatment/prophylaxis, have been reviewed in detail with the patient and/or patient goodwill representative(s) prior to discharge. This includes indication, common adverse reactions, drug interactions, and medication administration. Medication counseling has been employed using the teach-back method to ensure understanding. - Outcome: The patient and/or patient goodwill representative(s) have demonstrated understanding of the medications. Additional comments: Patient has gotten eliquis, taking twice a day. She has no questions. Thank you for allowing pharmacy to be involved in the care of this patient. Please call [phone] with any additional questions
== END 2024-12-21 16:20 | disposition home or self-care (01) | DRG 69 ==
LOC: ED 10:06 → 2E 12:49 → INTOOBSV 12:49 → SUATTDRO 12:49 → 2E 13:52